=== PATIENT | male | born 1980 | race American Indian/Alaskan Native ===

== ENCOUNTER 2020-12-18 21:50 | Emergency (ER) | payer MEDICAID ==
--- NOTE | 2020-12-18 22:21 | Emergency Department Report ---
ED General Adult HPI - General Chief complaint: Weakness Stated complaint: WEAKNESS/DIZZY/POTASSIUM LOW Time Seen by Provider: 12/18/20 22:14 Source: patient Mode of arrival: Ambulatory Limitations: No Limitations - History of Present Illness Initial comments: Patient presents for generalized weakness and hyperkalemia. There is a history of chronic kidney disease. Patient has a fistula in the left arm. This has not been used yet. His catalyst operator gasoline, Marleen Antoine at [facility], has determined that he will likely need dialysis. He had outpatient labs done today by his primary care physician. They called him about an hour ago and said that the potassium was elevated at 6.1. He was directed to come to the emergency department to get an EKG and medication. Patient does state that there has been some generalized weakness of late. There has been no vomiting or diarrhea. There has been no chest pain or shortness of breath. Patient is not eating tomatoes, bananas, or drinking orange juice. - Related Data Allergies Allergy/AdvReac Type Severity Reaction Status Date / Time Penicillins Allergy Unknown Verified 12/18/20 22:08 ED Review of Systems ROS: Stated complaint: WEAKNESS/DIZZY/POTASSIUM LOW Other details as noted in HPI Comment: All other systems reviewed and negative Constitutional: denies: fever Eyes: denies: vision change ENT: denies: throat pain Respiratory: denies: cough Cardiovascular: denies: chest pain Endocrine: denies: unexplained weight loss Gastrointestinal: denies: abdominal pain Genitourinary: denies: hematuria Musculoskeletal: denies: back pain Skin: denies: rash Neurological: denies: headache Hematological/Lymphatic: denies: easy bruising ED Past Medical Hx - Past Medical History Previous Medical History?: Yes Hx Renal Disease: Yes (Stage IV) Hx HIV: Yes - Surgical History Past Surgical History?: Yes - Family History Family history: no significant ED Physical Exam - General Limitations: No Limitations, Other (Pulse ox was noted to normal. Patient not hypoxic.) General appearance: alert, in no apparent distress - Head Head exam: Present: atraumatic, normocephalic, normal inspection - Eye Eye exam: Present: normal appearance, EOMI. Absent: scleral icterus - ENT ENT exam: Present: normal exam, normal external ear exam - Neck Neck exam: Present: normal inspection. Absent: meningismus - Respiratory Respiratory exam: Present: normal lung sounds bilaterally. Absent: respiratory distress - Cardiovascular Cardiovascular Exam: Present: regular rate, normal rhythm - GI/Abdominal GI/Abdominal exam: Present: soft. Absent: tenderness - Extremities Exam Extremities exam: Present: normal capillary refill. Absent: pedal edema - Back Exam Back exam: Absent: CVA tenderness (R), CVA tenderness (L) - Neurological Exam Neurological exam: Present: alert, oriented X3. Absent: motor sensory deficit - Psychiatric Psychiatric exam: Present: normal affect, normal mood - Skin Skin exam: Present: warm, dry ED Course - Reevaluation(s) Reevaluation #1: 12/18/20 22:21 labs ordered. Reevaluation #2: 12/19/20 00:07 Labs are noted and discussed with the patient. He was subsequently discharged. ED Medical Decision Making - Lab Data Result diagrams: 12/18/20 22:57 - EKG Data -: EKG Interpreted by Me EKG shows normal: sinus rhythm, axis, intervals, QRS complexes, ST-T waves Rate: normal - EKG Data Interpretation: LVH 12/19/20 00:08 EKG shows a normal sinus rhythm at 82. Intervals normal including a QRS of 88 and a QT corrected of 1-68. Patient has no peaked T waves suggestive of hyperkalemia. There is no other ST change. - Medical Decision Making Patient presents with concerns for hyperkalemia. He was told that his potassium was elevated above 6. Upon repeat, his potassium is not elevated above 6. It is 5.1. He is acidotic based on a bicarb of 12. He has been given 2 L of fluid. Whether his renal function is at baseline is difficult to determine as we do not have old labs for comparison. Regardless, he is not hyperkalemic. He is not hypoglycemic. He has been hydrated and referred back to his catalyst operator gasoline for recheck. Critical Care Time: No Critical care attestation.: If time is entered above; I have spent that time in minutes in the direct care of this critically ill patient, excluding procedure time. ED Disposition Clinical Impression: Generalized weakness, CKD (chronic kidney disease) stage 4, GFR 15-29 ml/min, Dehydration Disposition: 01 HOME / SELF CARE / HOMELESS Is pt being admited?: No Condition: Stable Instructions: Food Basics for Chronic Kidney Disease, Dehydration, Adult, [id number], Weakness Additional Instructions: Continue to drink water. Avoid orange juice and bananas. Follow-up with your regular doctor for recheck. Follow-up with your kidney doctor as well. Referrals: PRIMARY CARE, [Referring] - 3-5 Days
[2020-12-18] MEDS ORDERED: SODIUM CHLORIDE 0.9% 1000 ML 1,000 ML IV ONE ×2 (22:22→23:57)
[2020-12-18 23:45] LABS: Calcium 8.5 mg/dL (8.4-10.2)
[2020-12-19 02:36] VITALS: BP 163/75
--- NOTE | 2020-12-22 10:59 | Electrocardiograph Report ---
[facility] Test Date: 2020-12-18 Test Time: 22:34:35 Pat Name: KANWAL ZABALA Department: Room: Gender: M [employer] Supervisor: GUDELIA : 1980 Requested By: TORI HERNANDES Order Number: [id number] Reading MD: Guido Ramirez Measurements Intervals [place] Rate: 82 P: 48 KS: 145 QRS: -2 QRSD: 88 T: 38 QT: 400 QTc: 468 Interpretive Statements Sinus rhythm Nonspecific ST segment abnormality No previous ECG available for comparison Electronically Signed On 12-22-2020 10:59:14 EDT by Guido Ramirez
== END 2020-12-19 04:01 | disposition home or self-care (01) ==
LOC: ED 21:50
DX: N18.4 Chronic kidney disease, stage 4 (severe) (principal); E86.0 Dehydration; R53.1 Weakness; Z21 Asymptomatic human immunodeficiency virus [HIV] infection status; Z98.890 Other specified postprocedural states; Z88.0 Allergy status to penicillin
CPT/HCPCS: 36415; 80048; 93005; 96360; 96361; 99283; J7030

== ENCOUNTER 2021-04-01 20:00 | Inpatient (IN) | payer MEDICAID ==
[2021-04-01] MEDS ORDERED: SODIUM CHLORIDE 0.9% 1000 ML 1,000 ML IV ONE (20:48)
[2021-04-01] MEDS ORDERED: ONDANSETRON 4 MG/2 ML INJ IV ONE (20:48)
[2021-04-01] MEDS ORDERED: DICYCLOMINE 20 MG/2 ML INJ IM ONE (20:48)
--- NOTE | 2021-04-01 21:26 | Cat Scan Report ---
CT ABDOMEN AND PELVIS WITHOUT CONTRAST INDICATION / CLINICAL INFORMATION: diarrhea. abd pain. TECHNIQUE: Axial CT images were obtained through the abdomen and pelvis without IV contrast. All CT scans at this location are performed using CT dose reduction for ALARA by means of automated exposure control. COMPARISON: None available. FINDINGS: LOWER CHEST: No significant abnormality. AORTA / ARTERIES: Mild atherosclerotic calcification without acute abnormality. IVC / VEINS: No significant abnormality. LYMPH NODES: No significant adenopathy. COLON: There is mild fatty infiltration of the wall of the ascending colon and ileocecal valve APPENDIX: Not visualized. STOMACH / SMALL BOWEL: No significant abnormality. PERITONEUM: No free fluid. No free air. No fluid collection. LIVER: No significant abnormality. GALLBLADDER: No significant abnormality. BILE DUCTS: No significant abnormality. PANCREAS: No significant abnormality. SPLEEN: No significant abnormality. ADRENALS: No significant abnormality. RIGHT KIDNEY / URETER: Renal cyst. No hydronephrosis. Mild atrophic appearance of the kidney. LEFT KIDNEY / URETER: Renal cyst. No hydronephrosis. Mildly atrophic appearance kidney. URINARY BLADDER: No significant abnormality. REPRODUCTIVE ORGANS: No significant abnormality. SKELETAL SYSTEM: No significant abnormality. ADDITIONAL FINDINGS: None. IMPRESSION: 1. There is mild fatty infiltration of the colonic wall of the ascending colon and ileocecal valve, c orrelate for possible inflammatory bowel disease. 2. There is mild atherosclerotic disease, as well as atrophic appearance of bilateral kidneys. This a ppears advanced for patient's age. Correlate for diabetes. Signer Name: Sabino Soto DO Signed: 04/01/2021 9:22 PM Workstation Name: [email or web address] [id number]
[2021-04-01 21:36] LABS: Alanine Aminotransferase 8 units/L (7-56); Albumin 3.7 g/dL (3.9-5); Blood Urea Nitrogen 53 mg/dL (9-20); Calcium 8.6 mg/dL (8.4-10.2); Hemolysis Index 3
[2021-04-01 21:37] LABS: BUN/Creatinine Ratio 7
[2021-04-01 21:39] LABS: Bilirubin,Urine NEG (Negative); Blood,Urine NEG (Negative); Color,Urine Yellow (Yellow); Mucus,Urine FEW /HPF; Urobilinogen,Urine < 2.0 mg/dL (<2.0)
[2021-04-01 21:41] LABS: Protein,Urine >500 mg/dL (Negative)
[2021-04-01 21:54] LABS: Basophils # (Auto) 0.1 K/mm3 (0.0-0.1); Eosinophils # (Auto) 0.2 K/mm3 (0.0-0.4); Eosinophils % (Auto) 2.8 % (0.0-4.3); Hematocrit 28.7 % (35.5-45.6); Hemoglobin 9.1 gm/dl (11.8-15.2); Lymphocytes # (Auto) 2.6 K/mm3 (1.2-5.4); Lymphocytes % (Auto) 31.5 % (13.4-35.0); Mean Corpuscular HGB Conc 32 % (32-34); Mean Corpuscular Volume 94 fl (84-94); Monocytes # (Auto) 1.2 K/mm3 (0.0-0.8); Monocytes % (Auto) 14.7 % (0.0-7.3); Platelet Count 373 K/mm3 (140-440); Red Blood Count 3.05 M/mm3 (3.65-5.03); Red Cell Distribution Width 15.4 % (13.2-15.2)
[2021-04-01] MEDS ORDERED: SODIUM BICARB 8.4% 50 MEQ/50 ML SYRINGE IV ONE (22:05)
[2021-04-01] MEDS ORDERED: metroNIDAZOLE/NS 500 MG/100 ML 500 MG/100 ML BAG IV ONE (22:05)
[2021-04-01] MEDS ORDERED: SODIUM POLYSTYRENE 15 GM/60 ML ORAL LIQD PO ONE (22:05)
[2021-04-01] MEDS ORDERED: INSULIN REGULAR, HUMAN 100 UNITS/1 ML IV ONE (22:05)
[2021-04-01] MEDS ORDERED: DEXTROSE 50% IN WATER (25GM) 50 ML SYRINGE IV ONE (22:05)
--- NOTE | 2021-04-01 23:11 | Emergency Department Report ---
ED Abdominal Pain HPI - General Chief Complaint: Abdominal Pain Stated Complaint: ABD PAIN Time Seen by Provider: 04/01/21 20:42 Source: patient Mode of arrival: Ambulatory Limitations: No Limitations - History of Present Illness Initial Comments: Patient is a 40-year-old male with a past medical history of HIV and stage IV kidney disease who is being followed by a direct care provider at [facility] who is presenting with abdominal pain and diarrhea. Patient states for the last week he has had crampy abdominal pain and loose stools. Denies any blood in his stools. Also has some nausea denies fevers cough cold congestion. Patient states he feels fatigued. Abdominal cramps are estimated at 5 out of 10 in severity and occur intermittently. - Related Data Allergies Allergy/AdvReac Type Severity Reaction Status Date / Time Penicillins Allergy Unknown Verified 04/01/21 20:05 ED Review of Systems ROS: Stated complaint: ABD PAIN Other details as noted in HPI Comment: All other systems reviewed and negative ED Past Medical Hx - Past Medical History Hx Renal Disease: Yes (Stage IV) Hx HIV: Yes - Social History Smoking Status: Never Smoker Substance Use Type: None ED Physical Exam - General Limitations: No Limitations General appearance: alert, in distress - Head Head exam: Present: atraumatic, normocephalic - Eye Eye exam: Present: normal appearance - ENT ENT exam: Present: mucous membranes moist - Neck Neck exam: Present: normal inspection - Respiratory Respiratory exam: Present: normal lung sounds bilaterally. Absent: respiratory distress, wheezes, rales, rhonchi - Cardiovascular Cardiovascular Exam: Present: regular rate, normal rhythm, normal heart sounds. Absent: systolic murmur, diastolic murmur, rubs, gallop - GI/Abdominal GI/Abdominal exam: Present: soft, tenderness, normal bowel sounds. Absent: distended, guarding, rebound, rigid - Rectal Rectal exam: Present: deferred - Extremities Exam Extremities exam: Present: normal inspection - Back Exam Back exam: Present: normal inspection - Neurological Exam Neurological exam: Present: alert, oriented X3 - Psychiatric Psychiatric exam: Present: normal affect, normal mood - Skin Skin exam: Present: warm, dry, intact, normal color. Absent: rash ED Course Vital Signs 04/01/21 20:03 Temperature 98.5 F Pulse Rate 88 Respiratory 20 Rate Blood Pressure 119/60 O2 Sat by Pulse 99 Oximetry ED Medical Decision Making - Lab Data Result diagrams: 04/01/21 20:50 04/01/21 20:50 Lab Results 04/01/21 04/01/21 04/01/21 Range/Units 20:50 20:50 Unknown WBC 8.3 (4.5-11.0) K/mm3 RBC 3.05 L (3.65-5.03) M/mm3 Hgb 9.1 L (11.8-15.2) gm/dl Hct 28.7 L (35.5-45.6) % MCV 94 (84-94) fl MCH 30 (28-32) pg MCHC 32 (32-34) % RDW 15.4 H (13.2-15.2) % Plt Count 373 (140-440) K/mm3 Lymph % (Auto) 31.5 (13.4-35.0) % [place] % (Auto) 14.7 H (0.0-7.3) % Eos % (Auto) 2.8 (0.0-4.3) % Baso % (Auto) Records Tech Lymph # (Auto) 2.6 (1.2-5.4) K/mm3 [place] # (Auto) 1.2 H (0.0-0.8) K/mm3 Eos # (Auto) 0.2 (0.0-0.4) K/mm3 Baso # (Auto) 0.1 (0.0-0.1) K/mm3 Seg Neutrophils % 49.6 (40.0-70.0) % Seg Neutrophils # 4.1 (1.8-7.7) K/mm3 Sodium 136 L (137-145) mmol/L Potassium 6.8 H* (3.6-5.0) mmol/L Chloride 107.8 H (98-107) mmol/L Carbon Dioxide 14 L (22-30) mmol/L Anion Gap 21 mmol/L BUN 53 H (9-20) mg/dL Creatinine 7.2 H (0.8-1.3) mg/dL Estimated GFR 10 ml/min BUN/Creatinine Ratio 7 % Glucose 107 H (75-100) mg/dL Calcium 8.6 (8.4-10.2) mg/dL Total Bilirubin < 0.20 (0.1-1.2) mg/dL AST 14 (5-40) units/L ALT 8 (7-56) units/L Alkaline Phosphatase 89 (35-129) units/L Total Protein 7.6 (6.3-8.2) g/dL Albumin 3.7 L (3.9-5) g/dL Albumin/Globulin Ratio 0.9 % Lipase 67 H (13-60) units/L Urine Color Yellow (Yellow) Urine Turbidity Slightly-cloudy (Clear) Urine pH 5.0 (5.0-7.0) Ur Specific [place] 1.010 (1.003-1.030) Urine Protein >500 (Negative) mg/dL Urine Glucose (UA) Neg (Negative) mg/dL Urine Ketones Neg (Negative) mg/dL Urine Blood Neg (Negative) Urine Nitrite Neg (Negative) Urine Bilirubin Neg (Negative) Urine Urobilinogen < 2.0 (<2.0) mg/dL Ur Leukocyte Esterase Neg (Negative) Urine WBC (Auto) 7.0 H (0.0-6.0) /HPF Urine RBC (Auto) 1.0 (0.0-6.0) /HPF U Epithel Cells (Auto) 1.0 (0-13.0) /HPF Urine Mucus Few /HPF - Radiology Data Ordering Physician: PAOLA VARGAS MD Date of Service: 04/01/21 Procedure(s): CT abdomen pelvis wo [facility] Accession Number(s): [id number] cc: PAOLA VARGAS MD CT ABDOMEN AND PELVIS WITHOUT CONTRAST INDICATION / CLINICAL INFORMATION: diarrhea. abd pain. TECHNIQUE: Axial CT images were obtained through the abdomen and pelvis without IV contrast. All CT scans at this location are performed using CT dose reduction for ALARA by means of automated exposure control. COMPARISON: None available. FINDINGS: LOWER CHEST: No significant abnormality. AORTA / ARTERIES: Mild atherosclerotic calcification without acute abnormality. IVC / VEINS: No significant abnormality. LYMPH NODES: No significant adenopathy. COLON: There is mild fatty infiltration of the wall of the ascending colon and ileocecal valve APPENDIX: Not visualized. STOMACH / SMALL BOWEL: No significant abnormality. PERITONEUM: No free fluid. No free air. No fluid collection. LIVER: No significant abnormality. GALLBLADDER: No significant abnormality. BILE DUCTS: No significant abnormality. PANCREAS: No significant abnormality. SPLEEN: No significant abnormality. ADRENALS: No significant abnormality. RIGHT KIDNEY / URETER: Renal cyst. No hydronephrosis. Mild atrophic appearance of the kidney. LEFT KIDNEY / URETER: Renal cyst. No hydronephrosis. Mildly atrophic appearance kidney. URINARY BLADDER: No significant abnormality. REPRODUCTIVE ORGANS: No significant abnormality. SKELETAL SYSTEM: No significant abnormality. ADDITIONAL FINDINGS: None. IMPRESSION: 1. There is mild fatty infiltration of the colonic wall of the ascending colon and ileocecal valve, correlate for possible inflammatory bowel disease. 2. There is mild atherosclerotic disease, as well as atrophic appearance of bilateral kidneys. This appears advanced for patient's age. Correlate for diabetes. Signer Name: Sabino Priya Soto DO Signed: 04/01/2021 9:22 PM Workstation Name: [id number] - Medical Decision Making Patient is a 40-year-old Armenian male who is presenting with abdominal cramps and diarrhea. CT is consistent with colitis he was started on Flagyl Levaquin given some Bentyl fluids. Patient likely has had some worsening of his renal function secondary to some dehydration from the diarrhea and his potassium is elevated. Patient given a cocktail to get his potassium to come down. Patient will be admitted to the hospitalist service. Nephrology has been consulted. Critical Care Time: Yes (30) Critical care attestation.: If time is entered above; I have spent that time in minutes in the direct care of this critically ill patient, excluding procedure time. ED Disposition Clinical Impression: Acute kidney injury, Dehydration, Colitis Disposition: ADMITTED INPATIENT Is pt being admited?: Yes Does the pt Need Aspirin: No Condition: Stable Time of Disposition: 23:12
[2021-04-02] MEDS ORDERED: INSULIN REGULAR, HUMAN 100 UNITS/1 ML IV ONE (00:30)
[2021-04-02] MEDS ORDERED: metroNIDAZOLE/NS 500 MG/100 ML 500 MG/100 ML BAG IV ONE (00:30)
[2021-04-02] MEDS ORDERED: DICYCLOMINE 20 MG/2 ML INJ IM ONE (00:30)
[2021-04-02] MEDS ORDERED: SODIUM BICARB 8.4% 50 MEQ/50 ML SYRINGE IV ONE ×3 (00:30→20:20)
[2021-04-02] MEDS ORDERED: SODIUM POLYSTYRENE 15 GM/60 ML ORAL LIQD PO ONE ×2 (00:30→18:30)
[2021-04-02] MEDS ORDERED: SODIUM CHLORIDE 0.9% 1000 ML 1,000 ML ONE (00:57)
[2021-04-02] MEDS ORDERED: ONDANSETRON 4 MG/2 ML INJ ONE (00:57)
[2021-04-02] MEDS ORDERED: ALBUTEROL 2.5 MG/3 ML NEBU IH PRN (01:14)
[2021-04-02] MEDS ORDERED: ONDANSETRON 4 MG/2 ML INJ IV PRN (01:14)
[2021-04-02] MEDS ORDERED: HYDROmorphone 1 MG/1 ML INJ IV PRN (01:14)
[2021-04-02] MEDS ORDERED: ACETAMINOPHEN 325 MG TAB PO PRN (01:14)
[2021-04-02] MEDS ORDERED: MORPHINE 2 MG/1 ML INJ IV PRN (01:14)
[2021-04-02] MEDS ORDERED: CALCIUM GLUCONATE 1,000 MG in SODIUM CHLORIDE 0.9% 100 ML IV ONE (01:17)
--- NOTE | 2021-04-02 01:23 | History and Physical Report ---
History of Present Illness Date of examination: 04/02/21 Date of admission: 04/02/21 Chief complaint: Abdominal pain History of present illness: 40-year-old male with a past medical history of HIV and stage IV kidney disease who is being followed by a biscuit maker at [facility] who is presenting with abdominal pain and diarrhea. Patient states for the last week he has had crampy abdominal pain and loose stools. Denies any blood in his stools. Also has some nausea denies fevers cough cold congestion. Patient states he feels fatigued. Abdominal cramps are estimated at 5 out of 10 in severity and occur intermittently. In the emergency room patient is found to have potassium of 6.8, BUN of fifty- three and creatinine of 7.2, bicarb of fourteen. CT is consistent with colitis. pt was started on metronidazole , Levaquin. Patient was given some Bentyl and IV fluids. Patient likely has had some worsening of his renal function secondary to some dehydration from the diarrhea and his potassium is elevated. Patient was given insulin 7 units IV x1 dose D50, calcium gluconate 1 g. Kayexalate and sodium bicarb to get his potassium to come down. Patient will be admitted to the hospitalist service. Nephrology has been consulted. Past History Past Medical History: HIV/AIDS, renal failure Medications and Allergies Allergies Allergy/AdvReac Type Severity Reaction Status Date / Time Penicillins Allergy Unknown Verified 04/01/21 20:05 Active Meds: Active Medications Levofloxacin/Dextrose (Levaquin 500mg/100ml) 500 mg in 100 mls @ 100 mls/hr IV ONCE ONE; Protocol Stop: 04/02/21 01:29 Review of Systems All systems: negative Gastrointestinal: abdominal pain, nausea, vomiting, diarrhea Exam - Constitutional Vitals: Temp Pulse Resp BP Pulse Ox 98.5 F 88 20 119/60 99 04/01/21 20:03 04/01/21 20:03 04/01/21 20:03 04/01/21 20:03 04/01/21 20:03 General appearance: Present: no acute distress, well-nourished - EENT Eyes: Present: PERRL ENT: hearing intact, clear oral mucosa - Neck Neck: Present: supple, normal ROM - Respiratory Respiratory effort: normal Respiratory: bilateral: CTA - Cardiovascular Heart Sounds: Present: S1 & S2. Absent: rub, click - Extremities Extremities: pulses symmetrical, No edema Peripheral Pulses: within normal limits - Abdominal General gastrointestinal: Present: soft, non-tender, non-distended, normal bowel sounds Male genitourinary: Present: normal - Integumentary Integumentary: Present: clear, warm, dry - Musculoskeletal Musculoskeletal: gait normal, strength equal bilaterally - Psychiatric Psychiatric: appropriate mood/affect, intact judgment & insight - Neurologic Neurologic: CNII-XII intact, moves all extremities Results - Labs CBC & Chem 7: 04/01/21 20:50 04/01/21 20:50 Labs: Laboratory Last Values WBC 8.3 K/mm3 (4.5-11.0) 04/01/21 20:50 RBC 3.05 M/mm3 (3.65-5.03) L 04/01/21 20:50 Hgb 9.1 gm/dl (11.8-15.2) L 04/01/21 20:50 Hct 28.7 % (35.5-45.6) L 04/01/21 20:50 MCV 94 fl (84-94) 04/01/21 20:50 MCH 30 pg (28-32) 04/01/21 20:50 MCHC 32 % (32-34) 04/01/21 20:50 RDW 15.4 % (13.2-15.2) H 04/01/21 20:50 Plt Count 373 K/mm3 (140-440) 04/01/21 20:50 Lymph % (Auto) 31.5 % (13.4-35.0) 04/01/21 20:50 [place] % (Auto) 14.7 % (0.0-7.3) H 04/01/21 20:50 Eos % (Auto) 2.8 % (0.0-4.3) 04/01/21 20:50 Baso % (Auto) Mobile Lounge Driver 04/01/21 20:50 Lymph # (Auto) 2.6 K/mm3 (1.2-5.4) 04/01/21 20:50 [place] # (Auto) 1.2 K/mm3 (0.0-0.8) H 04/01/21 20:50 Eos # (Auto) 0.2 K/mm3 (0.0-0.4) 04/01/21 20:50 Baso # (Auto) 0.1 K/mm3 (0.0-0.1) 04/01/21 20:50 Seg Neutrophils % 49.6 % (40.0-70.0) 04/01/21 20:50 Seg Neutrophils # 4.1 K/mm3 (1.8-7.7) 04/01/21 20:50 Sodium 136 mmol/L (137-145) L 04/01/21 20:50 Potassium 6.8 mmol/L (3.6-5.0) H* 04/01/21 20:50 Chloride 107.8 mmol/L (98-107) H 04/01/21 20:50 Carbon Dioxide 14 mmol/L (22-30) L 04/01/21 20:50 Anion Gap 21 mmol/L 04/01/21 20:50 BUN 53 mg/dL (9-20) H 04/01/21 20:50 Creatinine 7.2 mg/dL (0.8-1.3) H 04/01/21 20:50 Estimated GFR 10 ml/min 04/01/21 20:50 BUN/Creatinine Ratio 7 % 04/01/21 20:50 Glucose 107 mg/dL (75-100) H 04/01/21 20:50 Calcium 8.6 mg/dL (8.4-10.2) 04/01/21 20:50 Total Bilirubin < 0.20 mg/dL (0.1-1.2) 04/01/21 20:50 AST 14 units/L (5-40) 04/01/21 20:50 ALT 8 units/L (7-56) 04/01/21 20:50 Alkaline Phosphatase 89 units/L (35-129) 04/01/21 20:50 Total Protein 7.6 g/dL (6.3-8.2) 04/01/21 20:50 Albumin 3.7 g/dL (3.9-5) L 04/01/21 20:50 Albumin/Globulin Ratio 0.9 % 04/01/21 20:50 Lipase 67 units/L (13-60) H 04/01/21 20:50 Urine Color Yellow (Yellow) 04/01/21 Unknown Urine Turbidity Slightly-cloudy (Clear) 04/01/21 Unknown Urine pH 5.0 (5.0-7.0) 04/01/21 Unknown Ur Specific [place] 1.010 (1.003-1.030) 04/01/21 Unknown Urine Protein >500 mg/dL (Negative) 04/01/21 Unknown Urine Glucose (UA) Neg mg/dL (Negative) 04/01/21 Unknown Urine Ketones Neg mg/dL (Negative) 04/01/21 Unknown Urine Blood Neg (Negative) 04/01/21 Unknown Urine Nitrite Neg (Negative) 04/01/21 Unknown Urine Bilirubin Neg (Negative) 04/01/21 Unknown Urine Urobilinogen < 2.0 mg/dL (<2.0) 04/01/21 Unknown Ur Leukocyte Esterase Neg (Negative) 04/01/21 Unknown Urine WBC (Auto) 7.0 /HPF (0.0-6.0) H 04/01/21 Unknown Urine RBC (Auto) 1.0 /HPF (0.0-6.0) 04/01/21 Unknown U Epithel Cells (Auto) 1.0 /HPF (0-13.0) 04/01/21 Unknown Urine Mucus Few /HPF 04/01/21 Unknown - Imaging and Cardiology CT scan - abdomen: report reviewed Assessment and Plan VTE prophylaxis?: Chemical Plan of care discussed with patient/family: Yes - Patient Problems (1) Acute kidney injury superimposed on chronic kidney disease Current Visit: Yes Status: Acute Plan to address problem: Admit the patient to the IMCU. N.p.o. IV fluid D5 half-normal saline at the rate of 125 cc/h. Avoid nephrotoxic drugs. Renally dose medication. Reconsult nephrology for evaluation. Recheck BMP in the morning (2) Hyperkalemia Current Visit: Yes Status: Acute Plan to address problem: Half-normal saline at the rate of 125 cc/h. Patient get insulin 7 units IV x1 dose, D50 1 ampoule IV x1 dose. Calcium gluconate 1 g IV x1 dose. Sodium bicarb 50 mEq IV x1 dose Kayexalate 30 g p.o. every 4 hours x2 doses. Reconsult nephrology for evaluation. Recheck BMP in the morning (3) HIV (human immunodeficiency virus infection) Current Visit: Yes Status: Acute Plan to address problem: Stable. We continue the home HIV medication outpatient follow-up with infectious disease (4) Colitis Current Visit: Yes Status: Acute Plan to address problem: NPO. D5 half-normal saline at the rate of 125 cc/h. Levaquin 750 mg IV daily. Metronidazole 500 mg IV every 8 hours. If needed will consult GI. Recheck CBC BMP in the morning (5) Dehydration Current Visit: Yes Status: Acute Plan to address problem: D5 half-normal saline at the rate of 125 cc/h. We will rehydrate the patient slowly. Recheck BMP in the morning (6) DVT prophylaxis Current Visit: Yes Status: Acute Plan to address problem: Heparin 5000 units subcu every 8 hours for DVT prophylaxis. Pepcid 20 mg IV every 12 hours for GI prophylaxis. Patient is a full code
[2021-04-02] MEDS ORDERED: SODIUM CHLORIDE 0.45% 1000 ML 1,000 ML IV SCH (02:00)
[2021-04-02] MEDS ORDERED: D5W/0.45% NACL 1,000 ML IV SCH (02:00)
[2021-04-02] MEDS: SODIUM POLYSTYRENE 15 GM/60 ML ORAL LIQD PO SCH ×2 (07:45→20:54)
[2021-04-02] MEDS ORDERED: metroNIDAZOLE/NS 500 MG/100 ML 500 MG/100 ML BAG IV SCH (09:00)
--- NOTE | 2021-04-02 09:23 | Progress Note ---
Assessment and Plan Assessment and plan: HPI: 40-year-old male with a past medical history of HIV and stage IV kidney disease who is being followed by a cost accounting analyst at [facility] who is presenting with abdominal pain and diarrhea. Patient states for the last week he has had crampy abdominal pain and loose stools. Denies any blood in his stools. Also has some nausea denies fevers cough cold congestion. Patient states he feels fatigued. Abdominal cramps are estimated at 5 out of 10 in severity and occur intermittently. Hospital Course 04/02/2021: ID consulted due to suspicion for opportunistic infection driving colitis vs HIV colitis. HAART therapy resumed. Stool cultures ordered by ID> No leukocytosis, fever. Abx d/c. If diarrhea does not resolve and infectious work up is negative, will consider GI consult. Awaiting labs (specifically K) which were ordered for 4 AM. ED RN was notified. Will follow for result. Assessment and Plan #ROMMEL superimposed on CKD - Cr: 7.2 on admission - follows with [facility] - IVF - nephrology consulted. #Hyperkalemia -6.8 -Status post calcium gluconate, sodium bicarb, insulin, Kayexalate - follow repeat K. #Colitis - will start clear liquid diet and advance as tolerated - possibly viral but wbc negative, no fevers. Has been ongoing for several weeks ( may need OP c-scope to look for inflammatory etiology). - c diff, stool studies ordered by ID - Zofran prn - dc flagyl/levaquin - ID following - may consider GI consult if no resolution #Human immunodeficiency virus infection - follow with [facility] dept. - CD4 count reported to be in 1100's. - Is complaint on HAART therapy:Norvir, Prezista, rilpivirine #History of CKD stage IV - baseline? - nephro following #Dehydration -IVF Dispo: IMCU DVT prophylaxis Heparin 5000 units every 8 hours NPO Full code The high probability of a clinically significant, sudden or life threatening deterioration of the [renal, GI] system(s) required my full and direct attention, intervention and personal management. The aggregate critical care time was [60] minutes. This time is in addition to time spent performing reported procedures but includes the following: [x] Data Review and interpretation [x] Patient assessment and monitoring of vital signs [x] Documentation [x] Medication orders and management Hospitalist Physical - Physical exam Narrative exam: Physical Exam: VITAL SIGNS: Reviewed. GENERAL: The patient appears normally developed, Vital signs as documented. HEAD: No signs of head trauma. EYES: Pupils are equal. Extraocular motions intact. EARS: Hearing grossly intact. MOUTH: Oropharynx is normal. NECK: No adenopathy, no JVD. CHEST: Chest with clear breath sounds bilaterally. No wheezes, rales, or rhonchi. CARDIAC: Regular rate and rhythm. S1 and S2, without murmurs, gallops, or rubs. VASCULAR: No Edema. Peripheral pulses normal and equal in all extremities. ABDOMEN: Soft, non tender and non distended. No rebound or guarding, and no masses palpated. Bowel Sounds normal. MUSCULOSKELETAL: Good range of motion of all major joints. Extremities without clubbing, cyanosis or edema. NEUROLOGIC EXAM: Alert and oriented x 4. no focal sensory or strength deficits. PSYCHIATRIC: Mood normal. SKIN: detail exam as documented in skin assessment - Constitutional Vitals: Temp Pulse Resp BP Pulse Ox 98.5 F 79 17 142/80 100 04/01/21 20:03 04/02/21 06:46 04/02/21 06:46 04/02/21 06:46 04/02/21 06:46 General appearance: Present: no acute distress, well-nourished Results - Labs CBC & Chem 7: 04/01/21 20:50 04/01/21 20:50 Labs: Laboratory Last Values WBC 8.3 K/mm3 (4.5-11.0) 04/01/21 20:50 RBC 3.05 M/mm3 (3.65-5.03) L 04/01/21 20:50 Hgb 9.1 gm/dl (11.8-15.2) L 04/01/21 20:50 Hct 28.7 % (35.5-45.6) L 04/01/21 20:50 MCV 94 fl (84-94) 04/01/21 20:50 MCH 30 pg (28-32) 04/01/21 20:50 MCHC 32 % (32-34) 04/01/21 20:50 RDW 15.4 % (13.2-15.2) H 04/01/21 20:50 Plt Count 373 K/mm3 (140-440) 04/01/21 20:50 Lymph % (Auto) 31.5 % (13.4-35.0) 04/01/21 20:50 [place] % (Auto) 14.7 % (0.0-7.3) H 04/01/21 20:50 Eos % (Auto) 2.8 % (0.0-4.3) 04/01/21 20:50 Baso % (Auto) [employer] 04/01/21 20:50 Lymph # (Auto) 2.6 K/mm3 (1.2-5.4) 04/01/21 20:50 [place] # (Auto) 1.2 K/mm3 (0.0-0.8) H 04/01/21 20:50 Eos # (Auto) 0.2 K/mm3 (0.0-0.4) 04/01/21 20:50 Baso # (Auto) 0.1 K/mm3 (0.0-0.1) 04/01/21 20:50 Seg Neutrophils % 49.6 % (40.0-70.0) 04/01/21 20:50 Seg Neutrophils # 4.1 K/mm3 (1.8-7.7) 04/01/21 20:50 Sodium 136 mmol/L (137-145) L 04/01/21 20:50 Potassium 6.8 mmol/L (3.6-5.0) H* 04/01/21 20:50 Chloride 107.8 mmol/L (98-107) H 04/01/21 20:50 Carbon Dioxide 14 mmol/L (22-30) L 04/01/21 20:50 Anion Gap 21 mmol/L 04/01/21 20:50 BUN 53 mg/dL (9-20) H 04/01/21 20:50 Creatinine 7.2 mg/dL (0.8-1.3) H 04/01/21 20:50 Estimated GFR 10 ml/min 04/01/21 20:50 BUN/Creatinine Ratio 7 % 04/01/21 20:50 Glucose 107 mg/dL (75-100) H 04/01/21 20:50 Calcium 8.6 mg/dL (8.4-10.2) 04/01/21 20:50 Total Bilirubin < 0.20 mg/dL (0.1-1.2) 04/01/21 20:50 AST 14 units/L (5-40) 04/01/21 20:50 ALT 8 units/L (7-56) 04/01/21 20:50 Alkaline Phosphatase 89 units/L (35-129) 04/01/21 20:50 Total Protein 7.6 g/dL (6.3-8.2) 04/01/21 20:50 Albumin 3.7 g/dL (3.9-5) L 04/01/21 20:50 Albumin/Globulin Ratio 0.9 % 04/01/21 20:50 Lipase 67 units/L (13-60) H 04/01/21 20:50 Urine Color Yellow (Yellow) 04/01/21 Unknown Urine Turbidity Slightly-cloudy (Clear) 04/01/21 Unknown Urine pH 5.0 (5.0-7.0) 04/01/21 Unknown Ur Specific [place] 1.010 (1.003-1.030) 04/01/21 Unknown Urine Protein >500 mg/dL (Negative) 04/01/21 Unknown Urine Glucose (UA) Neg mg/dL (Negative) 04/01/21 Unknown Urine Ketones Neg mg/dL (Negative) 04/01/21 Unknown Urine Blood Neg (Negative) 04/01/21 Unknown Urine Nitrite Neg (Negative) 04/01/21 Unknown Urine Bilirubin Neg (Negative) 04/01/21 Unknown Urine Urobilinogen < 2.0 mg/dL (<2.0) 04/01/21 Unknown Ur Leukocyte Esterase Neg (Negative) 04/01/21 Unknown Urine WBC (Auto) 7.0 /HPF (0.0-6.0) H 04/01/21 Unknown Urine RBC (Auto) 1.0 /HPF (0.0-6.0) 04/01/21 Unknown U Epithel Cells (Auto) 1.0 /HPF (0-13.0) 04/01/21 Unknown Urine Mucus Few /HPF 04/01/21 Unknown Active Medications - Current Medications Current Medications: Generic Name Dose Route Start Last Admin Trade Name Freq PRN Reason Stop Dose Admin Acetaminophen 650 mg 04/02/21 01:14 Acetaminophen 325 Mg Tab PO Q4H PRN Pain MILD(1-3)/Fever >100.5/ZELAYA Albuterol 2.5 mg 04/02/21 01:14 Albuterol 2.5 Mg/3 Ml Nebu IH Q4HRT PRN Shortness Of Breath Albuterol/Ipratropium 1 ampul 04/02/21 02:00 Ipratropium/Albuterol Sulfate 3 Ml Ampul.Neb IH Q6HRT MOODY Famotidine 20 mg 04/02/21 10:00 Famotidine 20 Mg/2 Ml Inj IV DAILY [facility] Heparin Sodium (Porcine) 5,000 unit 04/02/21 06:00 Heparin 5,000 Unit/1 Ml Vial SUB-Q Q8HR [facility] Hydromorphone HCl 0.5 mg 04/02/21 01:14 Hydromorphone 1 Mg/1 Ml Inj IV Q3H PRN Pain , Severe (7-10) Metronidazole 500 mg in 100 mls @ 100 mls/hr 04/02/21 09:00 Flagyl 500 Mg/100 Ml IV Q8H [facility] Protocol Dextrose/Sodium Chloride 1,000 mls @ 125 mls/hr 04/02/21 02:00 D5/0.45ns IV DIRECT [facility] Levofloxacin/Dextrose 250 mg in 50 mls @ 50 mls/hr 04/03/21 01:00 Levaquin 250mg/50ml IV Q48H [facility] Protocol Morphine Sulfate 2 mg 04/02/21 01:14 Morphine 2 Mg/1 Ml Inj IV Q4H PRN Pain, Moderate (4-6) Ondansetron HCl 4 mg 04/02/21 01:14 Ondansetron 4 Mg/2 Ml Inj IV Q8H PRN Nausea And Vomiting Sodium Chloride 10 ml 04/02/21 10:00 Sodium Chloride 0.9% 10 Ml Flush Syringe IV BID MOODY Sodium Chloride 10 ml 04/02/21 01:14 Sodium Chloride 0.9% 10 Ml Flush Syringe IV PRN PRN LINE FLUSH
[2021-04-02] MEDS ORDERED: FAMOTIDINE 20 MG/2 ML INJ IV SCH (10:00)
[2021-04-02] MEDS: HEPARIN 5,000 UNIT/1 ML VIAL SUB-Q SCH ×2 (10:24→18:26)
[2021-04-02] MEDS: FAMOTIDINE 20 MG/2 ML INJ IV SCH (10:24)
--- NOTE | 2021-04-02 13:35 | Consultation ---
History of Present Illness - Reason for Consult Consult date: 04/02/21 HIV, colitis Requesting physician: CARLYN ACOSTA - History of Present Illness The patient is a 40-year-old male with HIV, CKD stage IV was admitted to the hospital with a 10-day history of lower abdominal pain and some loose stools. CT abdomen and pelvis showed evidence of possible colitis. Infectious diseases was consulted for additional evaluation. Patient denies any fever. Labs with normal WBC of 8.3. Potassium 6.8, creatinine 7.2. Denies any recent antibiotic exposure. With regards to his HIV, he follows up at [facility], undetectable viral load and CD4 count is around 1100, ART includes Norvir, Prezista, rilpivirine. He used to be on Complera which was later discontinued due to his worsening renal function. Review of Systems: General: no fevers,chills or rigors HEENT: no new visual disturbance Respiratory: No cough, sputum, hemoptysis or shortness of breath Cardiovascular: No chest pain, syncope Gastrointestinal: Abdominal pain with few loose stools Genitourinary: No dysuria or hematuria Musculoskeletal: No new or worsening neck pain or back pain Neurologic: No headaches, seizures Hematologic: No easy bruising or bleeding Endocrine: No night sweats or acute weight loss Skin: negative for rash, jaundice Psychiatric: No suicidal or homicidal ideation Past History Past Medical History: HIV/AIDS, renal failure Social history: single Family history: hypertension Medications and Allergies Allergies Allergy/AdvReac Type Severity Reaction Status Date / Time Penicillins Allergy Unknown Verified 04/01/21 20:05 Active Meds: Active Medications Acetaminophen (Acetaminophen 325 Mg Tab) 650 mg PO Q4H PRN PRN Reason: Pain MILD(1-3)/Fever >100.5/ZELAYA Albuterol (Albuterol 2.5 Mg/3 Ml Nebu) 2.5 mg IH Q4HRT PRN PRN Reason: Shortness Of Breath Albuterol/Ipratropium (Ipratropium/Albuterol Sulfate 3 Ml Ampul.Neb) 1 ampul IH Q6HRT [facility] Famotidine (Famotidine 20 Mg/2 Ml Inj) 20 mg IV DAILY [facility] Last Admin: 04/02/21 10:24 Dose: 20 mg Heparin Sodium (Porcine) (Heparin 5,000 Unit/1 Ml Vial) 5,000 unit SUB-Q Q8HR [facility] Last Admin: 04/02/21 10:24 Dose: 5,000 unit Hydromorphone HCl (Hydromorphone 1 Mg/1 Ml Inj) 0.5 mg IV Q3H PRN PRN Reason: Pain , Severe (7-10) Metronidazole (Flagyl 500 Mg/100 Ml) 500 mg in 100 mls @ 100 mls/hr IV Q8H [facility]; Protocol Last Admin: 04/02/21 10:23 Dose: 100 mls/hr Dextrose/Sodium Chloride (D5/0.45ns) 1,000 mls @ 125 mls/hr IV DIRECT [facility] Levofloxacin/Dextrose (Levaquin 250mg/50ml) 250 mg in 50 mls @ 50 mls/hr IV Q48H [facility]; Protocol Morphine Sulfate (Morphine 2 Mg/1 Ml Inj) 2 mg IV Q4H PRN PRN Reason: Pain, Moderate (4-6) Ondansetron HCl (Ondansetron 4 Mg/2 Ml Inj) 4 mg IV Q8H PRN PRN Reason: Nausea And Vomiting Sodium Chloride (Sodium Chloride 0.9% 10 Ml Flush Syringe) 10 ml IV BID [facility] Last Admin: 04/02/21 10:24 Dose: 10 ml Sodium Chloride (Sodium Chloride 0.9% 10 Ml Flush Syringe) 10 ml IV PRN PRN PRN Reason: LINE FLUSH Physical Examination - Physical Exam Narrative exam: Physical Exam: Constitutional: Alert, cooperative. No acute distress Head, Ears, Nose: Normocephalic, atraumatic. External ears, nose normal Eyes: Conjunctivae/corneas clear. No icterus. No ptosis. Neck: Supple, no meningeal signs Oral: dentition fair, no thrush Cardiovascular: S1, S2 + Respiratory: Good air entry, clear to auscultation bilaterally GI: Soft, non-tender; bowel sounds normal. No peritoneal signs Musculoskeletal: No pedal edema, no cyanosis. Skin: No rash or abscess Hem/Lymphatic: No palpable cervical or supraclavicular nodes. No lymphangitis Psych: Mood ok. Affect normal Neurological: Awake, alert, oriented. No gross abnormality - Constitutional Vitals: Vital Signs Temp Pulse Resp BP Pulse Ox 98.5 F 79 17 142/80 100 04/01/21 20:03 04/02/21 06:46 04/02/21 06:46 04/02/21 06:46 04/02/21 06:46 Temperature -Last 24 Hours Temperature 98.5 F Results - Labs CBC & Chem 7: 04/01/21 20:50 04/01/21 20:50 Labs: Abnormal lab results 04/01/21 04/01/21 04/01/21 Range/Units 20:50 20:50 Unknown RBC 3.05 L (3.65-5.03) M/mm3 Hgb 9.1 L (11.8-15.2) gm/dl Hct 28.7 L (35.5-45.6) % RDW 15.4 H (13.2-15.2) % [place] % (Auto) 14.7 H (0.0-7.3) % [place] # (Auto) 1.2 H (0.0-0.8) K/mm3 Sodium 136 L (137-145) mmol/L Potassium 6.8 H* (3.6-5.0) mmol/L Chloride 107.8 H (98-107) mmol/L Carbon Dioxide 14 L (22-30) mmol/L BUN 53 H (9-20) mg/dL Creatinine 7.2 H (0.8-1.3) mg/dL Glucose 107 H (75-100) mg/dL Albumin 3.7 L (3.9-5) g/dL Lipase 67 H (13-60) units/L Urine WBC (Auto) 7.0 H (0.0-6.0) /HPF - Imaging and Cardiology CT scan - abdomen: report reviewed Assessment and Plan Cultures: None this admission A/P: 40-year-old male with HIV, CKD stage IV was admitted to the hospital with a 10- day history of lower abdominal pain and some loose stools. CT abdomen and pelvis showed evidence of possible colitis: #Abdominal pain, loose stools, possible colitis: No fever, no leukocytosis. Given his normal CD4 count, very low suspicion for opportunistic infection. C.difficile less likely, no recent abx exposure, normal WBC. #HIV: follows up at [facility], undetectable viral load and CD4 count is around 1100, ART includes Norvir, Prezista, rilpivirine. He used to be on Complera which was later discontinued due to his worsening renal function. #ROMMEL on CKD stage IV: Nephrology on board. Also hyperkalemia Recs: -ART regimen ordered: Prezista, Norvir, rilpivirine -Stool for C. difficile PCR, stool culture, stool for Giardia, cryptosporidium antigen -Low suspicion for opportunistic infection given well-controlled HIV -if diarrhea persists and infectious work up negative, consider GI consult Cheryl Pickering MD, FACP, [facility] ([facility] O: [phone] F: [phone]
[2021-04-02] MEDS ORDERED: RILPIVIRINE 25 MG PO SCH (13:45)
[2021-04-02 16:30] LABS: Basophils # (Auto) 0.1 K/mm3 (0.0-0.1); Basophils % (Auto) 1.4 % (0.0-1.8); Eosinophils # (Auto) 0.2 K/mm3 (0.0-0.4); Eosinophils % (Auto) 2.6 % (0.0-4.3); Hematocrit 25.7 % (35.5-45.6); Hemoglobin 8.4 gm/dl (11.8-15.2); Lymphocytes # (Auto) 3.1 K/mm3 (1.2-5.4); Lymphocytes % (Auto) 44.3 % (13.4-35.0); Mean Corpuscular HGB Conc 33 % (32-34); Mean Corpuscular Volume 92 fl (84-94); Monocytes # (Auto) 0.9 K/mm3 (0.0-0.8); Monocytes % (Auto) 12.4 % (0.0-7.3); Platelet Count 319 K/mm3 (140-440); Red Blood Count 2.78 M/mm3 (3.65-5.03); Red Cell Distribution Width 15.6 % (13.2-15.2)
[2021-04-02 16:41] LABS: Calcium 8.6 mg/dL (8.4-10.2)
[2021-04-02] MEDS ORDERED: SODIUM CHLORIDE 0.9% 100 ML IV PRN (17:29)
--- NOTE | 2021-04-02 17:35 | Consultation ---
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 Patient states for the last week he has had crampy abdominal pain and loose stools. Denies any blood in his stools. Also has some nausea denies fevers cough cold congestion. Patient states he feels fatigued. Abdominal cramps are estimated at 5 out of 10 in severity and occur intermittently. In the emergency room patient is found to have potassium of 6.8, BUN of fifty- three and creatinine of 7.2, bicarb of fourteen. CT is consistent with colitis. pt was started on metronidazole , Levaquin. Patient was given some Bentyl and IV fluids. Patient likely has had some worsening of his renal function secondary to some dehydration from the diarrhea and his potassium is elevated. Patient was given insulin 7 units IV x1 dose D50, calcium gluconate 1 g. Kayexalate and sodium bicarb to get his potassium to come down. Patient will be admitted to the hospitalist service. Nephrology has been consulted. Past History Past Medical History: HIV/AIDS, renal failure Review of Systems All systems: negative Gastrointestinal: abdominal pain, nausea, vomiting, diarrhea Past History Past Medical History: HIV/AIDS, renal failure Social history: single Family history: hypertension Medications and Allergies Allergies Allergy/AdvReac Type Severity Reaction Status Date / Time Penicillins Allergy Unknown Verified 04/01/21 20:05 Active Meds: Active Medications Acetaminophen (Acetaminophen 325 Mg Tab) 650 mg PO Q4H PRN PRN Reason: Pain MILD(1-3)/Fever >100.5/ZELAYA Albuterol (Albuterol 2.5 Mg/3 Ml Nebu) 2.5 mg IH Q4HRT PRN PRN Reason: Shortness Of Breath Albuterol/Ipratropium (Ipratropium/Albuterol Sulfate 3 Ml Ampul.Neb) 1 ampul IH Q6HRT [facility] Darunavir (Darunavir 800 Mg Tab) 800 mg PO QDAY [facility] Famotidine (Famotidine 20 Mg/2 Ml Inj) 20 mg IV DAILY [facility] Last Admin: 04/02/21 10:24 Dose: 20 mg Heparin Sodium (Porcine) (Heparin 5,000 Unit/1 Ml Vial) 5,000 unit SUB-Q Q8HR [facility] Last Admin: 04/02/21 10:24 Dose: 5,000 unit Hydromorphone HCl (Hydromorphone 1 Mg/1 Ml Inj) 0.5 mg IV Q3H PRN PRN Reason: Pain , Severe (7-10) Dextrose/Sodium Chloride (D5/0.45ns) 1,000 mls @ 125 mls/hr IV DIRECT [facility] Sodium Chloride (Nacl 0.9%) 100 mls @ 999 mls/hr IV PRACHI PRN PRN Reason: Hypotension Sodium Bicarbonate 150 meq/ (Dextrose) 1,150 mls @ 125 mls/hr IV DIRECT [facility] Morphine Sulfate (Morphine 2 Mg/1 Ml Inj) 2 mg IV Q4H PRN PRN Reason: Pain, Moderate (4-6) Ondansetron HCl (Ondansetron 4 Mg/2 Ml Inj) 4 mg IV Q8H PRN PRN Reason: Nausea And Vomiting Ritonavir (Ritonavir 100 Mg Tab) 100 mg PO QDAY [facility] Sodium Chloride (Sodium Chloride 0.9% 10 Ml Flush Syringe) 10 ml IV BID [facility] Last Admin: 04/02/21 10:24 Dose: 10 ml Sodium Chloride (Sodium Chloride 0.9% 10 Ml Flush Syringe) 10 ml IV PRN PRN PRN Reason: LINE FLUSH Sodium Polystyrene Sulfonate (Sodium Polystyrene 15 Gm/60 Ml Oral Liqd) 30 gm P O ONCE ONE Stop: 04/02/21 17:33 Exam - Vital Signs Vital signs: Vital Signs Temp Pulse Resp BP Pulse Ox 98.5 F 88 20 119/60 99 04/01/21 20:03 04/01/21 20:03 04/01/21 20:03 04/01/21 20:03 04/01/21 20:03 - Physical Exam Narrative exam: General appearance: Present: no acute distress, well-nourished - EENT Eyes: Present: PERRL ENT: hearing intact, clear oral mucosa - Neck Neck: Present: supple, normal ROM - Respiratory Respiratory effort: normal Respiratory: bilateral: CTA - Cardiovascular Heart Sounds: Present: S1 & S2. Absent: rub, click - Extremities Extremities: pulses symmetrical, No edema Peripheral Pulses: within normal limits - Abdominal General gastrointestinal: Present: soft, non-tender, non-distended, normal bowel sounds Male genitourinary: Present: normal - Integumentary Integumentary: Present: clear, warm, dry - Musculoskeletal Musculoskeletal: gait normal, strength equal bilaterally - Psychiatric Psychiatric: appropriate mood/affect, intact judgment & insight - Neurologic Neurologic: CNII-XII intact, moves all extremities Results - Lab Results 04/02/21 15:48 04/02/21 15:48 Most recent lab results Calcium 8.6 mg/dL (8.4-10.2) 04/02/21 15:48 Assessment and Plan Impression: * ROMMEL on CKD 4 * hyperkalemia * metabolic acidosis * HIV * abdominal pain Plan: * added bicarb gtt * kayexalate prn, follow up k levels * dougie adv ckd--esrd * follow up crcl * will need linux unix administrator for solute and elec control * avoid nephrotoxins * strict i/os and daily lytes * renal diet
[2021-04-02] MEDS: RITONAVIR 100 MG TAB PO SCH (18:24)
[2021-04-02] MEDS: DARUNAVIR 800 MG TAB PO SCH (18:24)
[2021-04-02] MEDS: DOLUTEGRAVIR 50 MG TAB PO SCH (18:24)
[2021-04-02] MEDS: IPRATROPIUM/ALBUTEROL SULFATE 3 ML AMPUL.NEB IH SCH ×3 (18:27→20:53)
[2021-04-02 19:04] LABS: Hepatitis B Surface Antigen Non-Reactive (Negative); Hepatitis C Virus Antibody Non-Reactive (NonReactive)
[2021-04-02] MEDS: CALCIUM GLUCONATE 2,000 MG in SODIUM CHLORIDE 0.9% 100 ML IV ONE ×2 (20:07→22:51)
[2021-04-03] MEDS: HEPARIN 5,000 UNIT/1 ML VIAL SUB-Q SCH ×4 (01:28→22:06)
[2021-04-03] MEDS: IPRATROPIUM/ALBUTEROL SULFATE 3 ML AMPUL.NEB IH SCH ×4 (02:26→17:24)
[2021-04-03 06:10] LABS: Hematocrit 24.1 % (35.5-45.6); Hemoglobin 7.6 gm/dl (11.8-15.2); Mean Corpuscular HGB Conc 31 % (32-34); Mean Corpuscular Volume 92 fl (84-94); Platelet Count 277 K/mm3 (140-440); Red Blood Count 2.61 M/mm3 (3.65-5.03); Red Cell Distribution Width 15.5 % (13.2-15.2)
[2021-04-03 06:35] LABS: Eosinophils # (Auto) 0.3 K/mm3 (0.0-0.4); Eosinophils % (Auto) 4.9 % (0.0-4.3); Monocytes # (Auto) 0.8 K/mm3 (0.0-0.8); Monocytes % (Auto) 13.6 % (0.0-7.3)
[2021-04-03 08:27] LABS: Total Cells Counted 100
[2021-04-03 08:28] LABS: Anisocytosis 1+; Platelet Estimate Consistent w Auto
--- NOTE | 2021-04-03 09:10 | Progress Note ---
Assessment and Plan Impression: * ROMMEL on CKD 4 * hyperkalemia * metabolic acidosis * HIV * abdominal pain Plan: * added bicarb gtt * follow up lytes daily, pending today * kayexalate prn, follow up k levels * dougie adv ckd--esrd * follow up crcl * will need net programmer for solute and elec control * avoid nephrotoxins * strict i/os and daily lytes * renal diet Subjective Date of service: 04/03/21 Principal diagnosis: rommel, hyperkalemia Interval history: labs and chart reviewed events noted Objective - Exam Narrative Exam: General appearance: Present: no acute distress, well-nourished - EENT Eyes: Present: PERRL ENT: hearing intact, clear oral mucosa - Neck Neck: Present: supple, normal ROM - Respiratory Respiratory effort: normal Respiratory: bilateral: CTA - Cardiovascular Heart Sounds: Present: S1 & S2. Absent: rub, click - Extremities Extremities: pulses symmetrical, No edema Peripheral Pulses: within normal limits - Abdominal General gastrointestinal: Present: soft, non-tender, non-distended, normal bowel sounds Male genitourinary: Present: normal - Integumentary Integumentary: Present: clear, warm, dry - Musculoskeletal Musculoskeletal: gait normal, strength equal bilaterally - Psychiatric Psychiatric: appropriate mood/affect, intact judgment & insight - Neurologic Neurologic: CNII-XII intact, moves all extremities - Vital Signs Vital signs: Vital Signs - 12hr 04/02/21 04/02/21 04/02/21 21:20 21:30 21:46 Pulse Rate Respiratory Rate Blood Pressure 145/75 145/75 145/75 Blood Pressure [Left] O2 Sat by Pulse 98 100 99 Oximetry 04/02/21 04/02/21 04/02/21 22:00 22:16 22:30 Pulse Rate Respiratory Rate Blood Pressure 144/80 144/80 144/80 Blood Pressure [Left] O2 Sat by Pulse 97 98 99 Oximetry 04/02/21 04/02/21 04/02/21 22:46 23:00 23:16 Pulse Rate Respiratory Rate Blood Pressure 144/80 136/84 136/84 Blood Pressure [Left] O2 Sat by Pulse 99 99 97 Oximetry 04/02/21 04/02/21 04/03/21 23:36 23:46 00:00 Pulse Rate Respiratory Rate Blood Pressure 136/84 136/84 146/78 Blood Pressure [Left] O2 Sat by Pulse 98 99 99 Oximetry 04/03/21 04/03/21 04/03/21 00:16 00:18 00:30 Pulse Rate Respiratory Rate Blood Pressure 146/78 146/78 146/78 Blood Pressure [Left] O2 Sat by Pulse 99 98 99 Oximetry 04/03/21 04/03/21 04/03/21 00:46 01:00 01:16 Pulse Rate Respiratory Rate Blood Pressure 146/78 135/71 135/71 Blood Pressure [Left] O2 Sat by Pulse 98 99 98 Oximetry 04/03/21 04/03/21 04/03/21 01:30 01:46 01:50 Pulse Rate 81 Respiratory 16 Rate Blood Pressure 135/71 135/71 Blood Pressure 135/71 [Left] O2 Sat by Pulse 99 99 100 Oximetry 04/03/21 04/03/21 04/03/21 02:00 02:16 02:30 Pulse Rate Respiratory Rate Blood Pressure 142/79 142/79 142/79 Blood Pressure [Left] O2 Sat by Pulse 98 99 99 Oximetry 04/03/21 04/03/21 04/03/21 02:46 03:02 03:16 Pulse Rate Respiratory Rate Blood Pressure 142/79 142/79 142/79 Blood Pressure [Left] O2 Sat by Pulse 98 98 97 Oximetry 04/03/21 04/03/21 04/03/21 03:30 03:46 03:56 Pulse Rate 78 Respiratory 16 Rate Blood Pressure 142/79 142/79 Blood Pressure 142/83 [Left] O2 Sat by Pulse 97 98 98 Oximetry 04/03/21 04/03/21 04/03/21 04:00 04:16 04:46 Pulse Rate Respiratory Rate Blood Pressure 147/79 147/79 147/79 Blood Pressure [Left] O2 Sat by Pulse 97 97 100 Oximetry 04/03/21 04/03/21 05:00 06:27 Pulse Rate 79 Respiratory 16 Rate Blood Pressure 139/88 Blood Pressure 139/88 [Left] O2 Sat by Pulse 99 99 Oximetry - Lab 04/03/21 05:27 04/02/21 15:48 Most recent lab results Calcium 8.6 mg/dL (8.4-10.2) 04/02/21 15:48 Urine Creatinine 81.3 mg/dL (0.1-20.0) H 04/02/21 20:55 Medications & Allergies - Medications Allergies/Adverse Reactions: Allergies Penicillins Allergy (Verified 04/01/21 20:05) Unknown Active Medications: Generic Name Dose Route Start Last Admin Trade Name Freq PRN Reason Stop Dose Admin Acetaminophen 650 mg 04/02/21 01:14 Acetaminophen 325 Mg Tab PO Q4H PRN Pain MILD(1-3)/Fever >100.5/ZELAYA Albuterol 2.5 mg 04/02/21 01:14 Albuterol 2.5 Mg/3 Ml Nebu IH Q4HRT PRN Shortness Of Breath Albuterol/Ipratropium 1 ampul 04/02/21 02:00 04/03/21 02:27 Ipratropium/Albuterol Sulfate 3 Ml Ampul.Neb IH Not Given Q6HRT [facility] Darunavir 800 mg 04/02/21 16:00 04/02/21 18:24 Darunavir 800 Mg Tab PO 800 mg QDAY [facility] Administration Famotidine 20 mg 04/02/21 10:00 04/02/21 10:24 Famotidine 20 Mg/2 Ml Inj IV 20 mg DAILY [facility] Administration Heparin Sodium (Porcine) 5,000 unit 04/02/21 06:00 04/03/21 06:54 Heparin 5,000 Unit/1 Ml Vial SUB-Q 5,000 unit Q8HR [facility] Administration Hydromorphone HCl 0.5 mg 04/02/21 01:14 Hydromorphone 1 Mg/1 Ml Inj IV Q3H PRN Pain , Severe (7-10) Sodium Chloride 100 mls @ 999 mls/hr 04/02/21 17:29 Nacl 0.9% IV PRACHI PRN Hypotension Sodium Bicarbonate 150 meq/ 1,150 mls @ 125 mls/hr 04/02/21 18:30 Dextrose IV DIRECT [facility] Morphine Sulfate 2 mg 04/02/21 01:14 Morphine 2 Mg/1 Ml Inj IV Q4H PRN Pain, Moderate (4-6) Ondansetron HCl 4 mg 04/02/21 01:14 Ondansetron 4 Mg/2 Ml Inj IV Q8H PRN Nausea And Vomiting Ritonavir 100 mg 04/02/21 16:00 04/02/21 18:24 Ritonavir 100 Mg Tab PO 100 mg QDAY [facility] Administration Sodium Chloride 10 ml 04/02/21 10:00 04/03/21 01:29 Sodium Chloride 0.9% 10 Ml Flush Syringe IV Not Given BID [facility] Sodium Chloride 10 ml 04/02/21 01:14 Sodium Chloride 0.9% 10 Ml Flush Syringe IV PRN PRN LINE FLUSH
[2021-04-03] MEDS: FAMOTIDINE 20 MG/2 ML INJ IV SCH (11:01)
[2021-04-03] MEDS: DARUNAVIR 800 MG TAB PO SCH (11:01)
[2021-04-03] MEDS: DOLUTEGRAVIR 50 MG TAB PO SCH (11:01)
[2021-04-03] MEDS: RITONAVIR 100 MG TAB PO SCH (11:02)
[2021-04-03 11:33] LABS: Calcium 8.7 mg/dL (8.4-10.2)
--- NOTE | 2021-04-03 11:59 | Progress Note ---
Assessment and Plan Assessment and plan: #ROMMEL superimposed on CKD stage IV -Creatinine 7.3 (previously 6.8) -follows with [facility] -Nephrology consulted; appreciate recs. Patient will likely need hemodialysis per nephrology. Vascular surgery consulted for Vas-Cath placement. Will likely occur early next week. Renally dose medications and avoid nephrotoxic meds. Monitor with daily BMP #Hyperkalemia - potassium 6.3 -In the setting of ROMMEL on CKD stage IV -Status post calcium gluconate, sodium bicarb, insulin, Kayexalate -Pending repeat BMPs #Colitis -Continue regular diet as tolerated -Possibly viral but patient is afebrile with normal white count. Has been ongoing for several weeks ( may need outpatient colonoscopy to evaluate for possible inflammatory etiology). -Pending C. difficile and stool studies as recommended by infectious disease -Continue Zofran prn -Discontinued Flagyl and Levaquin -Infectious disease consulted; appreciate recs -Continue to monitor #Human immunodeficiency virus infection - follow with [facility] dept. - CD4 count reported to be in 1100's. - Is complaint on HAART therapy:Norvir, Prezista, rilpivirine #History of CKD stage IV - baseline? - nephro following #Dehydrationresolved -Status post IV fluids #Advanced care planning -Disease education conducted, care plan discussed, diagnoses discussed, prognosis discussed, and patient acknowledges understanding with care plan -Time: +30 min Disposition Plan: Continue medical management Total Time Spent with Patient (Minutes): 45 minutes History Interval history: No acute events over night. The patient denies fevers, chills, nausea, vomiting, abdominal pain, chest pain/pressure, shortness of breath, urinary symptoms, weakness, or confusion. Hospitalist Physical - Constitutional Vitals: Temp Pulse Resp BP Pulse Ox 97.8 F 79 16 139/88 99 04/02/21 18:59 04/03/21 06:27 04/03/21 06:27 04/03/21 06:27 04/03/21 06:27 General appearance: Present: no acute distress, well-nourished - EENT Eyes: Present: PERRL, EOM intact ENT: hearing intact, clear oral mucosa - Neck Neck: Present: supple, normal ROM - Respiratory Respiratory effort: normal Respiratory: bilateral: CTA - Cardiovascular Rhythm: regular Heart Sounds: Present: S1 & S2 - Extremities Extremities: no ischemia, pulses intact, pulses symmetrical, No edema, normal temperature, normal color, Full ROM Peripheral Pulses: within normal limits - Abdominal General gastrointestinal: soft, non-tender, non-distended, normal bowel sounds - Integumentary Integumentary: Present: clear, warm, dry - Psychiatric Psychiatric: appropriate mood/affect, intact judgment & insight, cooperative - Neurologic Neurologic: CNII-XII intact, moves all extremities - Allied Health Allied health notes reviewed: nursing Results - Labs CBC & Chem 7: 04/03/21 05:27 04/03/21 10:30 Labs: Laboratory Last Values WBC 6.2 K/mm3 (4.5-11.0) 04/03/21 05:27 RBC 2.61 M/mm3 (3.65-5.03) L 04/03/21 05:27 Hgb 7.6 gm/dl (11.8-15.2) L 04/03/21 05:27 Hct 24.1 % (35.5-45.6) L 04/03/21 05:27 MCV 92 fl (84-94) 04/03/21 05:27 MCH 29 pg (28-32) 04/03/21 05:27 MCHC 31 % (32-34) L 04/03/21 05:27 RDW 15.5 % (13.2-15.2) H 04/03/21 05:27 Plt Count 277 K/mm3 (140-440) 04/03/21 05:27 Lymph % (Auto) 44.3 % (13.4-35.0) H 04/02/21 15:48 [place] % (Auto) 13.6 % (0.0-7.3) H 04/03/21 05:27 Eos % (Auto) 4.9 % (0.0-4.3) H 04/03/21 05:27 Baso % (Auto) 1.4 % (0.0-1.8) 04/02/21 15:48 Lymph # (Auto) 3.1 K/mm3 (1.2-5.4) 04/02/21 15:48 [place]ruff # (Auto) 0.8 K/mm3 (0.0-0.8) 04/03/21 05:27 Eos # (Auto) 0.3 K/mm3 (0.0-0.4) 04/03/21 05:27 Baso # (Auto) 0.0 K/mm3 (0.0-0.1) 04/03/21 05:27 Add Manual Diff Complete 04/03/21 05:27 Total Counted 100 04/03/21 05:27 Seg Neutrophils % Residential Therapist 04/03/21 05:27 Seg Neuts % (Manual) 36.0 % (40.0-70.0) L 04/03/21 05:27 Band Neutrophils % 0 % 04/03/21 05:27 Lymphocytes % (Manual) 48.0 % (13.4-35.0) H 04/03/21 05:27 Reactive Lymphs % (Man) 0 % 04/03/21 05:27 Monocytes % (Manual) 9.0 % (0.0-7.3) H 04/03/21 05:27 Eosinophils % (Manual) 4.0 % (0.0-4.3) 04/03/21 05:27 Basophils % (Manual) 3.0 % (0.0-1.8) H 04/03/21 05:27 Metamyelocytes % 0 % 04/03/21 05:27 Myelocytes % 0 % 04/03/21 05:27 Promyelocytes % 0 % 04/03/21 05:27 Blast Cells % 0 % 04/03/21 05:27 Nucleated RBC % Not Reportable 04/03/21 05:27 Seg Neutrophils # 2.0 K/mm3 (1.8-7.7) 04/03/21 05:27 Seg Neutrophils # Man 2.2 K/mm3 (1.8-7.7) 04/03/21 05:27 Band Neutrophils # 0.0 K/mm3 04/03/21 05:27 Lymphocytes # (Manual) 3.0 K/mm3 (1.2-5.4) 04/03/21 05:27 Abs React Lymphs (Man) 0.0 K/mm3 04/03/21 05:27 Monocytes # (Manual) 0.6 K/mm3 (0.0-0.8) 04/03/21 05:27 Eosinophils # (Manual) 0.2 K/mm3 (0.0-0.4) 04/03/21 05:27 Basophils # (Manual) 0.2 K/mm3 (0.0-0.1) H 04/03/21 05:27 Metamyelocytes # 0.0 K/mm3 04/03/21 05:27 Myelocytes # 0.0 K/mm3 04/03/21 05:27 Promyelocytes # 0.0 K/mm3 04/03/21 05:27 Blast Cells # 0.0 K/mm3 04/03/21 05:27 WBC Morphology Not Reportable 04/03/21 05:27 Hypersegmented Neuts Not Reportable 04/03/21 05:27 Hyposegmented Neuts Not Reportable 04/03/21 05:27 Hypogranular Neuts Not Reportable 04/03/21 05:27 Smudge Cells Not Reportable 04/03/21 05:27 Toxic Granulation Not Reportable 04/03/21 05:27 Toxic Vacuolation Not Reportable 04/03/21 05:27 Dohle Bodies Not Reportable 04/03/21 05:27 Pelger-Huet Anomaly Not Reportable 04/03/21 05:27 Davion Rods Not Reportable 04/03/21 05:27 Platelet Estimate Consistent w auto 04/03/21 05:27 Clumped Platelets Not Reportable 04/03/21 05:27 Plt Clumps, EDTA Not Reportable 04/03/21 05:27 Large Platelets Not Reportable 04/03/21 05:27 Giant Platelets Not Reportable 04/03/21 05:27 Platelet Satelliting Not Reportable 04/03/21 05:27 Plt Morphology Comment Not Reportable 04/03/21 05:27 RBC Morphology Not Reportable 04/03/21 05:27 Dimorphic RBCs Not Reportable 04/03/21 05:27 Polychromasia Not Reportable 04/03/21 05:27 Hypochromasia Not Reportable 04/03/21 05:27 Poikilocytosis Not Reportable 04/03/21 05:27 Anisocytosis 1+ 04/03/21 05:27 Microcytosis Not Reportable 04/03/21 05:27 Macrocytosis Not Reportable 04/03/21 05:27 Spherocytes Not Reportable 04/03/21 05:27 Pappenheimer Bodies Not Reportable 04/03/21 05:27 Sickle Cells Not Reportable 04/03/21 05:27 Target Cells Not Reportable 04/03/21 05:27 Tear Drop Cells Not Reportable 04/03/21 05:27 Ovalocytes Not Reportable 04/03/21 05:27 Helmet Cells Not Reportable 04/03/21 05:27 [place] Bodies Not Reportable 04/03/21 05:27 [place] Rings Not Reportable 04/03/21 05:27 [place] Cells Not Reportable 04/03/21 05:27 Bite Cells Not Reportable 04/03/21 05:27 Crenated Cell Not Reportable 04/03/21 05:27 Elliptocytes Not Reportable 04/03/21 05:27 Acanthocytes (Spur) Not Reportable 04/03/21 05:27 Rouleaux Not Reportable 04/03/21 05:27 Hemoglobin C Crystals Not Reportable 04/03/21 05:27 Schistocytes Not Reportable 04/03/21 05:27 Malaria parasites Not Reportable 04/03/21 05:27 Enrique Bodies Not Reportable 04/03/21 05:27 Hem Pathologist Commnt No 04/03/21 05:27 Sodium 139 mmol/L (137-145) 04/03/21 10:30 Potassium 6.3 mmol/L (3.6-5.0) H* 04/03/21 10:30 Chloride 113.2 mmol/L (98-107) H 04/03/21 10:30 Carbon Dioxide 15 mmol/L (22-30) L 04/03/21 10:30 Anion Gap 17 mmol/L 04/03/21 10:30 BUN 46 mg/dL (9-20) H 04/03/21 10:30 Creatinine 7.3 mg/dL (0.8-1.3) H 04/03/21 10:30 Estimated GFR 10 ml/min 04/03/21 10:30 BUN/Creatinine Ratio 6 % 04/03/21 10:30 Glucose 107 mg/dL (75-100) H 04/03/21 10:30 POC Glucose 78 mg/dL (70-105) 04/02/21 18:29 Calcium 8.7 mg/dL (8.4-10.2) 04/03/21 10:30 Total Bilirubin < 0.20 mg/dL (0.1-1.2) 04/01/21 20:50 AST 14 units/L (5-40) 04/01/21 20:50 ALT 8 units/L (7-56) 04/01/21 20:50 Alkaline Phosphatase 89 units/L (35-129) 04/01/21 20:50 Total Protein 7.6 g/dL (6.3-8.2) 04/01/21 20:50 Albumin 3.7 g/dL (3.9-5) L 04/01/21 20:50 Albumin/Globulin Ratio 0.9 % 04/01/21 20:50 Lipase 67 units/L (13-60) H 04/01/21 20:50 Urine Color Yellow (Yellow) 04/01/21 Unknown Urine Turbidity Slightly-cloudy (Clear) 04/01/21 Unknown Urine pH 5.0 (5.0-7.0) 04/01/21 Unknown Ur Specific [place] 1.010 (1.003-1.030) 04/01/21 Unknown Urine Protein >500 mg/dL (Negative) 04/01/21 Unknown Urine Glucose (UA) Neg mg/dL (Negative) 04/01/21 Unknown Urine Ketones Neg mg/dL (Negative) 04/01/21 Unknown Urine Blood Neg (Negative) 04/01/21 Unknown Urine Nitrite Neg (Negative) 04/01/21 Unknown Urine Bilirubin Neg (Negative) 04/01/21 Unknown Urine Urobilinogen < 2.0 mg/dL (<2.0) 04/01/21 Unknown Ur Leukocyte Esterase Neg (Negative) 04/01/21 Unknown Urine WBC (Auto) 7.0 /HPF (0.0-6.0) H 04/01/21 Unknown Urine RBC (Auto) 1.0 /HPF (0.0-6.0) 04/01/21 Unknown U Epithel Cells (Auto) 1.0 /HPF (0-13.0) 04/01/21 Unknown Urine Mucus Few /HPF 04/01/21 Unknown Urine Creatinine 81.3 mg/dL (0.1-20.0) H 04/02/21 20:55 Hepatitis A IgM Ab Non-reactive (NonReactive) 04/02/21 18:18 Hep Bs Antigen Non-reactive (Negative) 04/02/21 18:18 Hep B Core IgM Ab Non-reactive (NonReactive) 04/02/21 18:18 Hepatitis C Antibody Non-reactive (NonReactive) 04/02/21 18:18 Microbiology: Microbiology 04/03/21 05:00 Stool Stool for WBCs - Final 04/03/21 05:00 Stool Cryptosporidium Exam - Final NEGATIVE 04/03/21 05:00 Stool Giardia Antigen (WM) - Final NEGATIVE Active Medications - Current Medications Current Medications: Generic Name Dose Route Start Last Admin Trade Name Freq PRN Reason Stop Dose Admin Acetaminophen 650 mg 04/02/21 01:14 Acetaminophen 325 Mg Tab PO Q4H PRN Pain MILD(1-3)/Fever >100.5/ZELAYA Albuterol 2.5 mg 04/02/21 01:14 04/03/21 11:02 Albuterol 2.5 Mg/3 Ml Nebu IH 2.5 mg Q4HRT PRN Administration Shortness Of Breath Albuterol/Ipratropium 1 ampul 04/02/21 02:00 04/03/21 11:02 Ipratropium/Albuterol Sulfate 3 Ml Ampul.Neb IH 1 ampul Q6HRT MOODY Administration Darunavir 800 mg 04/02/21 16:00 04/03/21 11:01 Darunavir 800 Mg Tab PO 800 mg QDAY MOODY Administration Famotidine 20 mg 04/02/21 10:00 04/03/21 11:01 Famotidine 20 Mg/2 Ml Inj IV 20 mg DAILY MOODY Administration Heparin Sodium (Porcine) 5,000 unit 04/02/21 06:00 04/03/21 06:54 Heparin 5,000 Unit/1 Ml Vial SUB-Q 5,000 unit Q8HR MOODY Administration Hydromorphone HCl 0.5 mg 04/02/21 01:14 Hydromorphone 1 Mg/1 Ml Inj IV Q3H PRN Pain , Severe (7-10) Sodium Chloride 100 mls @ 999 mls/hr 04/02/21 17:29 Nacl 0.9% IV PRACHI PRN Hypotension Sodium Bicarbonate 150 meq/ 1,150 mls @ 125 mls/hr 04/02/21 18:30 Dextrose IV DIRECT MOODY Morphine Sulfate 2 mg 04/02/21 01:14 Morphine 2 Mg/1 Ml Inj IV Q4H PRN Pain, Moderate (4-6) Ondansetron HCl 4 mg 04/02/21 01:14 Ondansetron 4 Mg/2 Ml Inj IV Q8H PRN Nausea And Vomiting Ritonavir 100 mg 04/02/21 16:00 04/03/21 11:02 Ritonavir 100 Mg Tab PO 100 mg QDAY MOODY Administration Sodium Chloride 10 ml 04/02/21 10:00 04/03/21 11:02 Sodium Chloride 0.9% 10 Ml Flush Syringe IV 10 ml BID MOODY Administration Sodium Chloride 10 ml 04/02/21 01:14 Sodium Chloride 0.9% 10 Ml Flush Syringe IV PRN PRN LINE FLUSH
[2021-04-03] MEDS ORDERED: CALCIUM GLUCONATE 1,000 MG in SODIUM CHLORIDE 0.9% 100 ML IV ONE (13:00)
[2021-04-03] MEDS ORDERED: DEXTROSE 50% IN WATER (25GM) 50 ML SYRINGE IV ONE (13:00)
[2021-04-03] MEDS ORDERED: INSULIN REGULAR, HUMAN 100 UNITS/1 ML IV ONE (13:00)
[2021-04-03 17:34] LABS: Calcium 8.8 mg/dL (8.4-10.2)
[2021-04-03] MEDS ORDERED: INSULIN REGULAR, HUMAN 100 UNITS/1 ML ONE (17:50)
[2021-04-03] MEDS: SODIUM POLYSTYRENE 15 GM/60 ML ORAL LIQD PO SCH ×2 (18:06→22:06)
[2021-04-04] MEDS ORDERED: hydrALAZINE 20 MG/1 ML INJ IV PRN (01:32)
[2021-04-04] MEDS: IPRATROPIUM/ALBUTEROL SULFATE 3 ML AMPUL.NEB IH SCH ×4 (03:37→21:10)
[2021-04-04 05:35] LABS: Hemoglobin 7.8 gm/dl (11.8-15.2); Mean Corpuscular HGB Conc 32 % (32-34); Mean Corpuscular Volume 94 fl (84-94); Platelet Count 321 K/mm3 (140-440); Red Blood Count 2.57 M/mm3 (3.65-5.03); Red Cell Distribution Width 15.4 % (13.2-15.2)
[2021-04-04 05:52] LABS: Calcium 8.9 mg/dL (8.4-10.2)
[2021-04-04 06:27] LABS: Anisocytosis 1+; Band Neutrophils # (Manual) 0.1 K/mm3; Basophils % (Manual) 0 % (0.0-1.8); Total Cells Counted 100
[2021-04-04 06:28] LABS: Platelet Estimate Consistent w Auto
[2021-04-04] MEDS: HEPARIN 5,000 UNIT/1 ML VIAL SUB-Q SCH ×3 (06:35→22:17)
--- NOTE | 2021-04-04 09:39 | Consultation ---
History of Present Illness - Reason for Consult Consult date: 04/04/21 Acute renal failure likely on chronic renal failure - History of Present Illness Patient with a history of end-stage renal disease who previously is undergone attempted placement of a brachiocephalic left arm fistula at [facility]. Dr. Stevens was the surgeon. He has a palpable thrill at the anastomosis the remainder of the fistula is atretic with no thrill. Patient with no complaints. No difficulty breathing. Past History Past Medical History: HIV/AIDS, renal failure Social history: single Family history: hypertension Medications and Allergies Allergies Allergy/AdvReac Type Severity Reaction Status Date / Time Penicillins Allergy Unknown Verified 04/01/21 20:05 Active Meds: Active Medications Acetaminophen (Acetaminophen 325 Mg Tab) 650 mg PO Q4H PRN PRN Reason: Pain MILD(1-3)/Fever >100.5/ZELAYA Albuterol (Albuterol 2.5 Mg/3 Ml Nebu) 2.5 mg IH Q4HRT PRN PRN Reason: Shortness Of Breath Albuterol/Ipratropium (Ipratropium/Albuterol Sulfate 3 Ml Ampul.Neb) 1 ampul IH BIDRT [facility] Darunavir (Darunavir 800 Mg Tab) 800 mg PO QDAY [facility] Last Admin: 04/03/21 11:01 Dose: 800 mg Famotidine (Famotidine 20 Mg/2 Ml Inj) 20 mg IV DAILY [facility] Last Admin: 04/03/21 11:01 Dose: 20 mg Heparin Sodium (Porcine) (Heparin 5,000 Unit/1 Ml Vial) 5,000 unit SUB-Q Q8HR [facility] Last Admin: 04/04/21 06:35 Dose: 5,000 unit Hydralazine HCl (Hydralazine 20 Mg/1 Ml Inj) 10 mg IV Q6HR PRN PRN Reason: Hypertension Last Admin: 04/04/21 01:52 Dose: 10 mg Hydromorphone HCl (Hydromorphone 1 Mg/1 Ml Inj) 0.5 mg IV Q3H PRN PRN Reason: Pain , Severe (7-10) Sodium Chloride (Nacl 0.9%) 100 mls @ 999 mls/hr IV PRACHI PRN PRN Reason: Hypotension Sodium Bicarbonate 150 meq/ (Dextrose) 1,150 mls @ 125 mls/hr IV DIRECT [facility] Morphine Sulfate (Morphine 2 Mg/1 Ml Inj) 2 mg IV Q4H PRN PRN Reason: Pain, Moderate (4-6) Ondansetron HCl (Ondansetron 4 Mg/2 Ml Inj) 4 mg IV Q8H PRN PRN Reason: Nausea And Vomiting Ritonavir (Ritonavir 100 Mg Tab) 100 mg PO QDAY [facility] Last Admin: 04/03/21 11:02 Dose: 100 mg Sodium Chloride (Sodium Chloride 0.9% 10 Ml Flush Syringe) 10 ml IV BID [facility] Last Admin: 04/03/21 22:10 Dose: 10 ml Sodium Chloride (Sodium Chloride 0.9% 10 Ml Flush Syringe) 10 ml IV PRN PRN PRN Reason: LINE FLUSH Review of Systems All systems: negative Exam - Constitutional Vitals: Temp Pulse Resp BP Pulse Ox 97.9 F 90 20 162/78 98 04/03/21 19:35 04/04/21 08:38 04/04/21 08:38 04/04/21 08:08 04/04/21 08:47 General appearance: Present: no acute distress - EENT Eyes: Present: EOM intact ENT: hearing intact - Neck Neck: Present: supple, normal ROM - Respiratory Respiratory effort: normal - Abdominal General gastrointestinal: Present: deferred Male genitourinary: Present: deferred - Rectal Rectal Exam: deferred - Psychiatric Psychiatric: appropriate mood/affect, cooperative Results - Labs CBC & Chem 7: 04/04/21 05:00 04/04/21 05:00 Labs: Abnormal lab results 04/03/21 04/03/21 04/03/21 Range/Units 10:30 17:02 17:28 RBC (3.65-5.03) M/mm3 Hgb (11.8-15.2) gm/dl Hct (35.5-45.6) % RDW (13.2-15.2) % Seg Neuts % (Manual) (40.0-70.0) % Lymphocytes % (Manual) (13.4-35.0) % Potassium 6.3 H* 5.4 H (3.6-5.0) mmol/L Chloride 113.2 H 113.1 H (98-107) mmol/L Carbon Dioxide 15 L 14 L (22-30) mmol/L BUN 46 H 44 H (9-20) mg/dL Creatinine 7.3 H 7.5 H (0.8-1.3) mg/dL Glucose 107 H 109 H (75-100) mg/dL POC Glucose 108 H (70-105) mg/dL 04/04/21 04/04/21 Range/Units 05:00 05:00 RBC 2.57 L (3.65-5.03) M/mm3 Hgb 7.8 L (11.8-15.2) gm/dl Hct 24.0 L (35.5-45.6) % RDW 15.4 H (13.2-15.2) % Seg Neuts % (Manual) 31.0 L (40.0-70.0) % Lymphocytes % (Manual) 58.0 H (13.4-35.0) % Potassium (3.6-5.0) mmol/L Chloride 113.2 H (98-107) mmol/L Carbon Dioxide 12 L (22-30) mmol/L BUN 43 H (9-20) mg/dL Creatinine 7.8 H (0.8-1.3) mg/dL Glucose (75-100) mg/dL POC Glucose (70-105) mg/dL Assessment and Plan Patient with failed left upper arm brachiocephalic fistula performed at [facility]. If patient needs to initiate dialysis during this hospitalization, we will place appropriate catheter. Management per nephrology.
[2021-04-04] MEDS ORDERED: IPRATROPIUM/ALBUTEROL SULFATE 3 ML AMPUL.NEB IH SCH (10:00)
[2021-04-04] MEDS: SODIUM BICARBONATE 150 MEQ in DEXTROSE 5% IN WATER 1,000 ML IV SCH ×2 (10:04→22:16)
[2021-04-04] MEDS: FAMOTIDINE 20 MG/2 ML INJ IV SCH (10:14)
[2021-04-04] MEDS: RITONAVIR 100 MG TAB PO SCH (10:14)
[2021-04-04] MEDS: DOLUTEGRAVIR 50 MG TAB PO SCH (10:15)
[2021-04-04] MEDS: DARUNAVIR 800 MG TAB PO SCH (10:15)
--- NOTE | 2021-04-04 10:37 | Progress Note ---
Assessment and Plan Impression: * ROMMEL on CKD 5--now ESRD * hyperkalemia * metabolic acidosis * HIV * abdominal pain Plan: * added bicarb gtt * follow up lytes daily, pending today * kayexalate prn, follow up k levels * dougie adv ckd--esrd * follow up crcl * will need state pilot for solute and elec control * avoid nephrotoxins * strict i/os and daily lytes * renal diet * had extensive conversation with patient, he understands the plan and willing to proceed with plan * needs outpatient clinic arrangement[facility] Date of service: 04/04/21 Principal diagnosis: rommel, hyperkalemia Interval history: labs and chart reviewed events noted Objective - Exam Narrative Exam: primary team exam noted - Vital Signs Vital signs: Vital Signs - 12hr 04/03/21 04/03/21 04/04/21 23:01 23:31 00:31 Pulse Rate 103 H 86 92 H Pulse Rate [ Bilateral Throughout] Respiratory 21 21 27 H Rate Respiratory Rate [Bilateral Throughout] Blood Pressure 179/92 170/76 169/68 Blood Pressure [Left] O2 Sat by Pulse 97 100 99 Oximetry 04/04/21 04/04/21 04/04/21 01:01 01:31 01:52 Pulse Rate 90 89 92 H Pulse Rate [ Bilateral Throughout] Respiratory 26 H 23 Rate Respiratory Rate [Bilateral Throughout] Blood Pressure 176/68 170/76 170/76 Blood Pressure [Left] O2 Sat by Pulse 98 100 Oximetry 04/04/21 04/04/21 04/04/21 02:01 02:31 03:31 Pulse Rate 103 H 99 H 90 Pulse Rate [ Bilateral Throughout] Respiratory 17 26 H 16 Rate Respiratory Rate [Bilateral Throughout] Blood Pressure 177/69 158/79 163/72 Blood Pressure [Left] O2 Sat by Pulse 100 100 100 Oximetry 04/04/21 04/04/21 04/04/21 03:37 04:01 04:31 Pulse Rate 110 H 103 H Pulse Rate [ 113 H Bilateral Throughout] Respiratory 25 H Rate Respiratory 20 Rate [Bilateral Throughout] Blood Pressure 157/64 147/59 Blood Pressure [Left] O2 Sat by Pulse 97 99 Oximetry 04/04/21 04/04/21 04/04/21 05:01 05:31 06:01 Pulse Rate 97 H 96 H 92 H Pulse Rate [ Bilateral Throughout] Respiratory 22 25 H 24 Rate Respiratory Rate [Bilateral Throughout] Blood Pressure 155/71 145/52 150/42 Blood Pressure [Left] O2 Sat by Pulse 98 97 97 Oximetry 04/04/21 04/04/21 04/04/21 06:31 07:01 07:31 Pulse Rate 89 96 H 105 H Pulse Rate [ Bilateral Throughout] Respiratory 23 24 21 Rate Respiratory Rate [Bilateral Throughout] Blood Pressure 162/78 162/78 162/78 Blood Pressure [Left] O2 Sat by Pulse 97 98 99 Oximetry 04/04/21 04/04/21 04/04/21 08:01 08:08 08:38 Pulse Rate 92 H 92 H Pulse Rate [ 90 Bilateral Throughout] Respiratory 25 H 25 H Rate Respiratory 20 Rate [Bilateral Throughout] Blood Pressure 162/78 Blood Pressure 162/78 [Left] O2 Sat by Pulse 100 100 Oximetry 04/04/21 04/04/21 08:42 08:47 Pulse Rate Pulse Rate [ Bilateral Throughout] Respiratory Rate Respiratory Rate [Bilateral Throughout] Blood Pressure Blood Pressure [Left] O2 Sat by Pulse 98 98 Oximetry - Lab 04/04/21 05:00 04/04/21 05:00 Most recent lab results Calcium 8.9 mg/dL (8.4-10.2) 04/04/21 05:00 Phosphorus 4.50 mg/dL (2.5-4.5) 04/04/21 05:00 Magnesium 2.20 mg/dL (1.7-2.3) 04/04/21 05:00 Urine Creatinine 81.3 mg/dL (0.1-20.0) H 04/02/21 20:55 Medications & Allergies - Medications Allergies/Adverse Reactions: Allergies Penicillins Allergy (Verified 04/01/21 20:05) Unknown Active Medications: Generic Name Dose Route Start Last Admin Trade Name Freq PRN Reason Stop Dose Admin Acetaminophen 650 mg 04/02/21 01:14 Acetaminophen 325 Mg Tab PO Q4H PRN Pain MILD(1-3)/Fever >100.5/ZELAYA Albuterol 2.5 mg 04/04/21 12:00 Albuterol 2.5 Mg/3 Ml Nebu IH Q4HRT PRN Shortness Of Breath Albuterol/Ipratropium 1 ampul 04/04/21 20:00 Ipratropium/Albuterol Sulfate 3 Ml Ampul.Neb IH BIDRT MOODY Darunavir 800 mg 04/02/21 16:00 04/04/21 10:15 Darunavir 800 Mg Tab PO 800 mg QDAY MOODY Administration Famotidine 20 mg 04/02/21 10:00 04/04/21 10:14 Famotidine 20 Mg/2 Ml Inj IV 20 mg DAILY MOODY Administration Heparin Sodium (Porcine) 5,000 unit 04/02/21 06:00 04/04/21 06:35 Heparin 5,000 Unit/1 Ml Vial SUB-Q 5,000 unit Q8HR MOODY Administration Hydralazine HCl 10 mg 04/04/21 01:32 04/04/21 01:52 Hydralazine 20 Mg/1 Ml Inj IV 10 mg Q6HR PRN Administration Hypertension Hydromorphone HCl 0.5 mg 04/02/21 01:14 Hydromorphone 1 Mg/1 Ml Inj IV Q3H PRN Pain , Severe (7-10) Sodium Chloride 100 mls @ 999 mls/hr 04/02/21 17:29 Nacl 0.9% IV PRACHI PRN Hypotension Sodium Bicarbonate 150 meq/ 1,150 mls @ 125 mls/hr 04/02/21 18:30 04/04/21 10:04 Dextrose IV 125 mls/hr DIRECT MOODY Administration Morphine Sulfate 2 mg 04/02/21 01:14 Morphine 2 Mg/1 Ml Inj IV Q4H PRN Pain, Moderate (4-6) Ondansetron HCl 4 mg 04/02/21 01:14 Ondansetron 4 Mg/2 Ml Inj IV Q8H PRN Nausea And Vomiting Ritonavir 100 mg 04/02/21 16:00 04/04/21 10:14 Ritonavir 100 Mg Tab PO 100 mg QDAY MOODY Administration Sodium Chloride 10 ml 04/02/21 10:00 04/04/21 10:06 Sodium Chloride 0.9% 10 Ml Flush Syringe IV 10 ml BID MOODY Administration Sodium Chloride 10 ml 04/02/21 01:14 Sodium Chloride 0.9% 10 Ml Flush Syringe IV PRN PRN LINE FLUSH
[2021-04-04] MEDS ORDERED: SODIUM CHLORIDE 0.9% 100 ML IV PRN (10:38)
--- NOTE | 2021-04-04 11:01 | Progress Note ---
Assessment and Plan Assessment and plan: #ROMMEL superimposed on CKD stage IV -Creatinine 7.8 (previously 7.3) -[facility]s [facility] -Nephrology consulted; appreciate recs. Patient will likely need hemodialysis per nephrology. Vascular surgery consulted for Vas-Cath placement. Will likely occur early next week. Renally dose medications and avoid nephrotoxic meds. Monitor with daily BMP #Hyperkalemia - potassium 5.0 -In the setting of ROMMEL on CKD stage IV -Status post calcium gluconate, sodium bicarb, insulin, Kayexalate -Pending repeat BMPs #Colitis -Continue regular diet as tolerated -Possibly viral but patient is afebrile with normal white count. Has been ongoing for several weeks ( may need outpatient colonoscopy to evaluate for possible inflammatory etiology). -Pending C. difficile and stool studies as recommended by infectious disease -Continue Zofran prn -Discontinued Flagyl and Levaquin -Infectious disease consulted; appreciate recs -Continue to monitor #Human immunodeficiency virus infection - follow with [facility] dept. - CD4 count reported to be in 1100's. - Is complaint on HAART therapy:Norvir, Prezista, rilpivirine #History of CKD stage IV - baseline? -Nephrology consulted; appreciate recs #Dehydrationresolved -Status post IV fluids #Advanced care planning -Disease education conducted, care plan discussed, diagnoses discussed, prognosis discussed, and patient acknowledges understanding with care plan -Time: +30 min Disposition Plan: Continue medical management Total Time Spent with Patient (Minutes): 45 minutes History Interval history: No acute events over night. The patient denies fevers, chills, nausea, vomiting, abdominal pain, chest pain/pressure, shortness of breath, urinary symptoms, weakness, or confusion. Hospitalist Physical - Constitutional Vitals: Temp Pulse Resp BP Pulse Ox 97.6 F 96 H 18 137/74 98 04/04/21 09:41 04/04/21 09:41 04/04/21 09:41 04/04/21 09:41 04/04/21 09:41 General appearance: Present: no acute distress, well-nourished - EENT Eyes: Present: PERRL, EOM intact ENT: hearing intact, clear oral mucosa, dentition normal - Neck Neck: Present: supple, normal ROM - Respiratory Respiratory effort: normal Respiratory: bilateral: CTA - Cardiovascular Rhythm: regular Heart Sounds: Present: S1 & S2 - Extremities Extremities: no ischemia, pulses intact, pulses symmetrical, No edema, normal temperature, normal color, Full ROM Peripheral Pulses: within normal limits - Abdominal General gastrointestinal: soft, non-tender, non-distended, normal bowel sounds - Integumentary Integumentary: Present: clear, warm, dry - Psychiatric Psychiatric: appropriate mood/affect, cooperative - Neurologic Neurologic: CNII-XII intact, moves all extremities - Allied Health Allied health notes reviewed: nursing Results - Labs CBC & Chem 7: 04/04/21 05:00 04/04/21 05:00 Labs: Laboratory Last Values WBC 7.2 K/mm3 (4.5-11.0) 04/04/21 05:00 RBC 2.57 M/mm3 (3.65-5.03) L 04/04/21 05:00 Hgb 7.8 gm/dl (11.8-15.2) L 04/04/21 05:00 Hct 24.0 % (35.5-45.6) L 04/04/21 05:00 MCV 94 fl (84-94) 04/04/21 05:00 MCH 30 pg (28-32) 04/04/21 05:00 MCHC 32 % (32-34) 04/04/21 05:00 RDW 15.4 % (13.2-15.2) H 04/04/21 05:00 Plt Count 321 K/mm3 (140-440) 04/04/21 05:00 Lymph % (Auto) 44.3 % (13.4-35.0) H 04/02/21 15:48 [place] % (Auto) 13.6 % (0.0-7.3) H 04/03/21 05:27 Eos % (Auto) 4.9 % (0.0-4.3) H 04/03/21 05:27 Baso % (Auto) 1.4 % (0.0-1.8) 04/02/21 15:48 Lymph # (Auto) 3.1 K/mm3 (1.2-5.4) 04/02/21 15:48 [place] # (Auto) 0.8 K/mm3 (0.0-0.8) 04/03/21 05:27 Eos # (Auto) 0.3 K/mm3 (0.0-0.4) 04/03/21 05:27 Baso # (Auto) 0.0 K/mm3 (0.0-0.1) 04/03/21 05:27 Add Manual Diff Complete 04/04/21 05:00 Total Counted 100 04/04/21 05:00 Seg Neutrophils % Sweat Box Attendant 04/04/21 05:00 Seg Neuts % (Manual) 31.0 % (40.0-70.0) L 04/04/21 05:00 Band Neutrophils % 1.0 % 04/04/21 05:00 Lymphocytes % (Manual) 58.0 % (13.4-35.0) H 04/04/21 05:00 Reactive Lymphs % (Man) 0 % 04/04/21 05:00 Monocytes % (Manual) 7.0 % (0.0-7.3) 04/04/21 05:00 Eosinophils % (Manual) 3.0 % (0.0-4.3) 04/04/21 05:00 Basophils % (Manual) 0 % (0.0-1.8) 04/04/21 05:00 Metamyelocytes % 0 % 04/04/21 05:00 Myelocytes % 0 % 04/04/21 05:00 Promyelocytes % 0 % 04/04/21 05:00 Blast Cells % 0 % 04/04/21 05:00 Nucleated RBC % Not Reportable 04/04/21 05:00 Seg Neutrophils # 2.0 K/mm3 (1.8-7.7) 04/03/21 05:27 Seg Neutrophils # Man 2.2 K/mm3 (1.8-7.7) 04/04/21 05:00 Band Neutrophils # 0.1 K/mm3 04/04/21 05:00 Lymphocytes # (Manual) 4.2 K/mm3 (1.2-5.4) 04/04/21 05:00 Abs React Lymphs (Man) 0.0 K/mm3 04/04/21 05:00 Monocytes # (Manual) 0.5 K/mm3 (0.0-0.8) 04/04/21 05:00 Eosinophils # (Manual) 0.2 K/mm3 (0.0-0.4) 04/04/21 05:00 Basophils # (Manual) 0.0 K/mm3 (0.0-0.1) 04/04/21 05:00 Metamyelocytes # 0.0 K/mm3 04/04/21 05:00 Myelocytes # 0.0 K/mm3 04/04/21 05:00 Promyelocytes # 0.0 K/mm3 04/04/21 05:00 Blast Cells # 0.0 K/mm3 04/04/21 05:00 WBC Morphology Not Reportable 04/04/21 05:00 Hypersegmented Neuts Not Reportable 04/04/21 05:00 Hyposegmented Neuts Not Reportable 04/04/21 05:00 Hypogranular Neuts Not Reportable 04/04/21 05:00 Smudge Cells Not Reportable 04/04/21 05:00 Toxic Granulation Not Reportable 04/04/21 05:00 Toxic Vacuolation Not Reportable 04/04/21 05:00 Dohle Bodies Not Reportable 04/04/21 05:00 Pelger-Huet Anomaly Not Reportable 04/04/21 05:00 Davion Rods Not Reportable 04/04/21 05:00 Platelet Estimate Consistent w auto 04/04/21 05:00 Clumped Platelets Not Reportable 04/04/21 05:00 Plt Clumps, EDTA Not Reportable 04/04/21 05:00 Large Platelets Not Reportable 04/04/21 05:00 Giant Platelets Not Reportable 04/04/21 05:00 Platelet Satelliting Not Reportable 04/04/21 05:00 Plt Morphology Comment Not Reportable 04/04/21 05:00 RBC Morphology Not Reportable 04/04/21 05:00 Dimorphic RBCs Not Reportable 04/04/21 05:00 Polychromasia Not Reportable 04/04/21 05:00 Hypochromasia Not Reportable 04/04/21 05:00 Poikilocytosis Not Reportable 04/04/21 05:00 Anisocytosis 1+ 04/04/21 05:00 Microcytosis Not Reportable 04/04/21 05:00 Macrocytosis Not Reportable 04/04/21 05:00 Spherocytes Not Reportable 04/04/21 05:00 Pappenheimer Bodies Not Reportable 04/04/21 05:00 Sickle Cells Not Reportable 04/04/21 05:00 Target Cells Not Reportable 04/04/21 05:00 Tear Drop Cells Not Reportable 04/04/21 05:00 Ovalocytes Not Reportable 04/04/21 05:00 Helmet Cells Not Reportable 04/04/21 05:00 [place] Bodies Not Reportable 04/04/21 05:00 [place] Rings Not Reportable 04/04/21 05:00 [place] Cells Not Reportable 04/04/21 05:00 Bite Cells Not Reportable 04/04/21 05:00 Crenated Cell Not Reportable 04/04/21 05:00 Elliptocytes Not Reportable 04/04/21 05:00 Acanthocytes (Spur) Not Reportable 04/04/21 05:00 Rouleaux Not Reportable 04/04/21 05:00 Hemoglobin C Crystals Not Reportable 04/04/21 05:00 Schistocytes Not Reportable 04/04/21 05:00 Malaria parasites Not Reportable 04/04/21 05:00 Enrique Bodies Not Reportable 04/04/21 05:00 Hem Pathologist Commnt No 04/04/21 05:00 Sodium 140 mmol/L (137-145) 04/04/21 05:00 Potassium 5.0 mmol/L (3.6-5.0) 04/04/21 05:00 Chloride 113.2 mmol/L (98-107) H 04/04/21 05:00 Carbon Dioxide 12 mmol/L (22-30) L 04/04/21 05:00 Anion Gap 20 mmol/L 04/04/21 05:00 BUN 43 mg/dL (9-20) H 04/04/21 05:00 Creatinine 7.8 mg/dL (0.8-1.3) H 04/04/21 05:00 Estimated GFR 9 ml/min 04/04/21 05:00 BUN/Creatinine Ratio 6 % 04/04/21 05:00 Glucose 92 mg/dL (75-100) 04/04/21 05:00 POC Glucose 108 mg/dL (70-105) H 04/03/21 17:28 Calcium 8.9 mg/dL (8.4-10.2) 04/04/21 05:00 Phosphorus 4.50 mg/dL (2.5-4.5) 04/04/21 05:00 Magnesium 2.20 mg/dL (1.7-2.3) 04/04/21 05:00 Total Bilirubin < 0.20 mg/dL (0.1-1.2) 04/01/21 20:50 AST 14 units/L (5-40) 04/01/21 20:50 ALT 8 units/L (7-56) 04/01/21 20:50 Alkaline Phosphatase 89 units/L (35-129) 04/01/21 20:50 Total Protein 7.6 g/dL (6.3-8.2) 04/01/21 20:50 Albumin 3.7 g/dL (3.9-5) L 04/01/21 20:50 Albumin/Globulin Ratio 0.9 % 04/01/21 20:50 Lipase 67 units/L (13-60) H 04/01/21 20:50 Urine Color Yellow (Yellow) 04/01/21 Unknown Urine Turbidity Slightly-cloudy (Clear) 04/01/21 Unknown Urine pH 5.0 (5.0-7.0) 04/01/21 Unknown Ur Specific [place] 1.010 (1.003-1.030) 04/01/21 Unknown Urine Protein >500 mg/dL (Negative) 04/01/21 Unknown Urine Glucose (UA) Neg mg/dL (Negative) 04/01/21 Unknown Urine Ketones Neg mg/dL (Negative) 04/01/21 Unknown Urine Blood Neg (Negative) 04/01/21 Unknown Urine Nitrite Neg (Negative) 04/01/21 Unknown Urine Bilirubin Neg (Negative) 04/01/21 Unknown Urine Urobilinogen < 2.0 mg/dL (<2.0) 04/01/21 Unknown Ur Leukocyte Esterase Neg (Negative) 04/01/21 Unknown Urine WBC (Auto) 7.0 /HPF (0.0-6.0) H 04/01/21 Unknown Urine RBC (Auto) 1.0 /HPF (0.0-6.0) 04/01/21 Unknown U Epithel Cells (Auto) 1.0 /HPF (0-13.0) 04/01/21 Unknown Urine Mucus Few /HPF 04/01/21 Unknown Urine Creatinine 81.3 mg/dL (0.1-20.0) H 04/02/21 20:55 Coronavirus (PCR) Negative (Negative) 04/03/21 09:33 Hepatitis A IgM Ab Non-reactive (NonReactive) 04/02/21 18:18 Hep Bs Antigen Non-reactive (Negative) 04/02/21 18:18 Hep B Core IgM Ab Non-reactive (NonReactive) 04/02/21 18:18 Hepatitis C Antibody Non-reactive (NonReactive) 04/02/21 18:18 Microbiology: Microbiology 04/03/21 05:00 Stool Stool for WBCs - Final 04/03/21 05:00 Stool Cryptosporidium Exam - Final NEGATIVE 04/03/21 05:00 Stool Giardia Antigen (WM) - Final NEGATIVE Active Medications - Current Medications Current Medications: Generic Name Dose Route Start Last Admin Trade Name Freq PRN Reason Stop Dose Admin Acetaminophen 650 mg 04/02/21 01:14 Acetaminophen 325 Mg Tab PO Q4H PRN Pain MILD(1-3)/Fever >100.5/ZELAYA Albuterol 2.5 mg 04/04/21 12:00 Albuterol 2.5 Mg/3 Ml Nebu IH Q4HRT PRN Shortness Of Breath Albuterol/Ipratropium 1 ampul 04/04/21 20:00 Ipratropium/Albuterol Sulfate 3 Ml Ampul.Neb IH BIDRT MOODY Darunavir 800 mg 04/02/21 16:00 04/04/21 10:15 Darunavir 800 Mg Tab PO 800 mg QDAY MOODY Administration Famotidine 20 mg 04/02/21 10:00 04/04/21 10:14 Famotidine 20 Mg/2 Ml Inj IV 20 mg DAILY MOODY Administration Heparin Sodium (Porcine) 5,000 unit 04/02/21 06:00 04/04/21 06:35 Heparin 5,000 Unit/1 Ml Vial SUB-Q 5,000 unit Q8HR MOODY Administration Hydralazine HCl 10 mg 04/04/21 01:32 04/04/21 01:52 Hydralazine 20 Mg/1 Ml Inj IV 10 mg Q6HR PRN Administration Hypertension Hydromorphone HCl 0.5 mg 04/02/21 01:14 Hydromorphone 1 Mg/1 Ml Inj IV Q3H PRN Pain , Severe (7-10) Sodium Chloride 100 mls @ 999 mls/hr 04/02/21 17:29 Nacl 0.9% IV PRACHI PRN Hypotension Sodium Bicarbonate 150 meq/ 1,150 mls @ 125 mls/hr 04/02/21 18:30 04/04/21 10:04 Dextrose IV 125 mls/hr DIRECT MOODY Administration Sodium Chloride 100 mls @ 999 mls/hr 04/04/21 10:38 Nacl 0.9% IV PRACHI PRN Hypotension Morphine Sulfate 2 mg 04/02/21 01:14 Morphine 2 Mg/1 Ml Inj IV Q4H PRN Pain, Moderate (4-6) Ondansetron HCl 4 mg 04/02/21 01:14 Ondansetron 4 Mg/2 Ml Inj IV Q8H PRN Nausea And Vomiting Ritonavir 100 mg 04/02/21 16:00 04/04/21 10:14 Ritonavir 100 Mg Tab PO 100 mg QDAY MOODY Administration Sodium Chloride 10 ml 04/02/21 10:00 04/04/21 10:06 Sodium Chloride 0.9% 10 Ml Flush Syringe IV 10 ml BID MOODY Administration Sodium Chloride 10 ml 04/02/21 01:14 Sodium Chloride 0.9% 10 Ml Flush Syringe IV PRN PRN LINE FLUSH
[2021-04-04] MEDS ORDERED: ALBUTEROL 2.5 MG/3 ML NEBU IH PRN (12:00)
[2021-04-05 06:05] LABS: Calcium 8.2 mg/dL (8.4-10.2)
[2021-04-05] MEDS: HEPARIN 5,000 UNIT/1 ML VIAL SUB-Q SCH ×2 (07:01→21:56)
--- NOTE | 2021-04-05 07:17 | Progress Note ---
Assessment and Plan Assessment and plan: #ROMMEL superimposed on CKD stage 5 #ESRD -Creatinine 7.8 (previously 7.3) -follows with [facility] nephrology -Nephrology consulted; appreciate recs. Nephrology recommends hemodialysis; pending Vas-Cath placement. Vascular surgery consulted for Vas-Cath placement. Will occur early this week. Renally dose medications and avoid nephrotoxic meds. Monitor with daily BMP #Hyperkalemiaresolved - potassium 4.7 -In the setting of ROMMEL on CKD stage IV -Status post calcium gluconate, sodium bicarb, insulin, Kayexalate -Pending repeat BMPs #Colitis -Continue regular diet as tolerated -Possibly viral but patient is afebrile with normal white count. Has been ongoing for several weeks ( may need outpatient colonoscopy to evaluate for possible inflammatory etiology). -Pending C. difficile. Stool studies negative for Giardia or Cryptosporidium. -Continue Zofran prn -Discontinued Flagyl and Levaquin -Infectious disease consulted; appreciate recs -Continue to monitor #Human immunodeficiency virus infection - follow with [facility] dept. - CD4 count reported to be in 1100's. - Is complaint on HAART therapy:Norvir, Prezista, rilpivirine #History of CKD stage IV - baseline? -Nephrology consulted; appreciate recs #Dehydrationresolved -Status post IV fluids #Advanced care planning -Disease education conducted, care plan discussed, diagnoses discussed, prognosis discussed, and patient acknowledges understanding with care plan -Time: +30 min #Discharge planning - Patient is pending Vas-Cath placement, initiation of hemodialysis, and HD chair in outpatient setting. - Case management has been made aware. Disposition Plan: Continue medical management Total Time Spent with Patient (Minutes): 45 minutes History Interval history: No acute events overnight. Hospitalist Physical - Constitutional Vitals: Temp Pulse Resp BP Pulse Ox 98.3 F 95 H 18 143/71 95 04/05/21 06:57 04/05/21 06:57 04/05/21 06:57 04/05/21 06:57 04/05/21 06:57 General appearance: Present: no acute distress, well-nourished - EENT Eyes: Present: PERRL, EOM intact ENT: hearing intact, clear oral mucosa, dentition normal - Neck Neck: Present: supple, normal ROM - Respiratory Respiratory effort: normal Respiratory: bilateral: CTA - Cardiovascular Rhythm: regular Heart Sounds: Present: S1 & S2 - Extremities Extremities: no ischemia, pulses intact, pulses symmetrical, No edema, normal temperature, normal color, Full ROM Peripheral Pulses: within normal limits - Abdominal General gastrointestinal: soft, non-tender, non-distended, normal bowel sounds - Integumentary Integumentary: Present: clear, warm, dry - Psychiatric Psychiatric: appropriate mood/affect, intact judgment & insight, memory intact, cooperative - Neurologic Neurologic: CNII-XII intact, moves all extremities - Allied Health Allied health notes reviewed: nursing Results - Labs CBC & Chem 7: 04/04/21 05:00 04/05/21 04:07 Labs: Laboratory Last Values WBC 7.2 K/mm3 (4.5-11.0) 04/04/21 05:00 RBC 2.57 M/mm3 (3.65-5.03) L 04/04/21 05:00 Hgb 7.8 gm/dl (11.8-15.2) L 04/04/21 05:00 Hct 24.0 % (35.5-45.6) L 04/04/21 05:00 MCV 94 fl (84-94) 04/04/21 05:00 MCH 30 pg (28-32) 04/04/21 05:00 MCHC 32 % (32-34) 04/04/21 05:00 RDW 15.4 % (13.2-15.2) H 04/04/21 05:00 Plt Count 321 K/mm3 (140-440) 04/04/21 05:00 Lymph % (Auto) 44.3 % (13.4-35.0) H 04/02/21 15:48 [place] % (Auto) 13.6 % (0.0-7.3) H 04/03/21 05:27 Eos % (Auto) 4.9 % (0.0-4.3) H 04/03/21 05:27 Baso % (Auto) 1.4 % (0.0-1.8) 04/02/21 15:48 Lymph # (Auto) 3.1 K/mm3 (1.2-5.4) 04/02/21 15:48 [place] # (Auto) 0.8 K/mm3 (0.0-0.8) 04/03/21 05:27 Eos # (Auto) 0.3 K/mm3 (0.0-0.4) 04/03/21 05:27 Baso # (Auto) 0.0 K/mm3 (0.0-0.1) 04/03/21 05:27 Add Manual Diff Complete 04/04/21 05:00 Total Counted 100 04/04/21 05:00 Seg Neutrophils % Sr. Operations Manager 04/04/21 05:00 Seg Neuts % (Manual) 31.0 % (40.0-70.0) L 04/04/21 05:00 Band Neutrophils % 1.0 % 04/04/21 05:00 Lymphocytes % (Manual) 58.0 % (13.4-35.0) H 04/04/21 05:00 Reactive Lymphs % (Man) 0 % 04/04/21 05:00 Monocytes % (Manual) 7.0 % (0.0-7.3) 04/04/21 05:00 Eosinophils % (Manual) 3.0 % (0.0-4.3) 04/04/21 05:00 Basophils % (Manual) 0 % (0.0-1.8) 04/04/21 05:00 Metamyelocytes % 0 % 04/04/21 05:00 Myelocytes % 0 % 04/04/21 05:00 Promyelocytes % 0 % 04/04/21 05:00 Blast Cells % 0 % 04/04/21 05:00 Nucleated RBC % Not Reportable 04/04/21 05:00 Seg Neutrophils # 2.0 K/mm3 (1.8-7.7) 04/03/21 05:27 Seg Neutrophils # Man 2.2 K/mm3 (1.8-7.7) 04/04/21 05:00 Band Neutrophils # 0.1 K/mm3 04/04/21 05:00 Lymphocytes # (Manual) 4.2 K/mm3 (1.2-5.4) 04/04/21 05:00 Abs React Lymphs (Man) 0.0 K/mm3 04/04/21 05:00 Monocytes # (Manual) 0.5 K/mm3 (0.0-0.8) 04/04/21 05:00 Eosinophils # (Manual) 0.2 K/mm3 (0.0-0.4) 04/04/21 05:00 Basophils # (Manual) 0.0 K/mm3 (0.0-0.1) 04/04/21 05:00 Metamyelocytes # 0.0 K/mm3 04/04/21 05:00 Myelocytes # 0.0 K/mm3 04/04/21 05:00 Promyelocytes # 0.0 K/mm3 04/04/21 05:00 Blast Cells # 0.0 K/mm3 04/04/21 05:00 WBC Morphology Not Reportable 04/04/21 05:00 Hypersegmented Neuts Not Reportable 04/04/21 05:00 Hyposegmented Neuts Not Reportable 04/04/21 05:00 Hypogranular Neuts Not Reportable 04/04/21 05:00 Smudge Cells Not Reportable 04/04/21 05:00 Toxic Granulation Not Reportable 04/04/21 05:00 Toxic Vacuolation Not Reportable 04/04/21 05:00 Dohle Bodies Not Reportable 04/04/21 05:00 Pelger-Huet Anomaly Not Reportable 04/04/21 05:00 Davion Rods Not Reportable 04/04/21 05:00 Platelet Estimate Consistent w auto 04/04/21 05:00 Clumped Platelets Not Reportable 04/04/21 05:00 Plt Clumps, EDTA Not Reportable 04/04/21 05:00 Large Platelets Not Reportable 04/04/21 05:00 Giant Platelets Not Reportable 04/04/21 05:00 Platelet Satelliting Not Reportable 04/04/21 05:00 Plt Morphology Comment Not Reportable 04/04/21 05:00 RBC Morphology Not Reportable 04/04/21 05:00 Dimorphic RBCs Not Reportable 04/04/21 05:00 Polychromasia Not Reportable 04/04/21 05:00 Hypochromasia Not Reportable 04/04/21 05:00 Poikilocytosis Not Reportable 04/04/21 05:00 Anisocytosis 1+ 04/04/21 05:00 Microcytosis Not Reportable 04/04/21 05:00 Macrocytosis Not Reportable 04/04/21 05:00 Spherocytes Not Reportable 04/04/21 05:00 Pappenheimer Bodies Not Reportable 04/04/21 05:00 Sickle Cells Not Reportable 04/04/21 05:00 Target Cells Not Reportable 04/04/21 05:00 Tear Drop Cells Not Reportable 04/04/21 05:00 Ovalocytes Not Reportable 04/04/21 05:00 Helmet Cells Not Reportable 04/04/21 05:00 [place] Bodies Not Reportable 04/04/21 05:00 [place] Rings Not Reportable 04/04/21 05:00 [place] Cells Not Reportable 04/04/21 05:00 Bite Cells Not Reportable 04/04/21 05:00 Crenated Cell Not Reportable 04/04/21 05:00 Elliptocytes Not Reportable 04/04/21 05:00 Acanthocytes (Spur) Not Reportable 04/04/21 05:00 Rouleaux Not Reportable 04/04/21 05:00 Hemoglobin C Crystals Not Reportable 04/04/21 05:00 Schistocytes Not Reportable 04/04/21 05:00 Malaria parasites Not Reportable 04/04/21 05:00 Enrique Bodies Not Reportable 04/04/21 05:00 Hem Pathologist Commnt No 04/04/21 05:00 Sodium 143 mmol/L (137-145) 04/05/21 04:07 Potassium 4.7 mmol/L (3.6-5.0) 04/05/21 04:07 Chloride 107.0 mmol/L (98-107) 04/05/21 04:07 Carbon Dioxide 22 mmol/L (22-30) D 04/05/21 04:07 Anion Gap 19 mmol/L 04/05/21 04:07 BUN 39 mg/dL (9-20) H 04/05/21 04:07 Creatinine 7.6 mg/dL (0.8-1.3) H 04/05/21 04:07 Estimated GFR 10 ml/min 04/05/21 04:07 BUN/Creatinine Ratio 5 % 04/05/21 04:07 Glucose 93 mg/dL (75-100) 04/05/21 04:07 POC Glucose 108 mg/dL (70-105) H 04/03/21 17:28 Calcium 8.2 mg/dL (8.4-10.2) L 04/05/21 04:07 Phosphorus 4.50 mg/dL (2.5-4.5) 04/04/21 05:00 Magnesium 2.20 mg/dL (1.7-2.3) 04/04/21 05:00 Total Bilirubin < 0.20 mg/dL (0.1-1.2) 04/01/21 20:50 AST 14 units/L (5-40) 04/01/21 20:50 ALT 8 units/L (7-56) 04/01/21 20:50 Alkaline Phosphatase 89 units/L (35-129) 04/01/21 20:50 Total Protein 7.6 g/dL (6.3-8.2) 04/01/21 20:50 Albumin 3.7 g/dL (3.9-5) L 04/01/21 20:50 Albumin/Globulin Ratio 0.9 % 04/01/21 20:50 Lipase 67 units/L (13-60) H 04/01/21 20:50 PTH Intact 319.5 pg/mL (15-65) H 04/04/21 Unknown Urine Color Yellow (Yellow) 04/01/21 Unknown Urine Turbidity Slightly-cloudy (Clear) 04/01/21 Unknown Urine pH 5.0 (5.0-7.0) 04/01/21 Unknown Ur Specific [place] 1.010 (1.003-1.030) 04/01/21 Unknown Urine Protein >500 mg/dL (Negative) 04/01/21 Unknown Urine Glucose (UA) Neg mg/dL (Negative) 04/01/21 Unknown Urine Ketones Neg mg/dL (Negative) 04/01/21 Unknown Urine Blood Neg (Negative) 04/01/21 Unknown Urine Nitrite Neg (Negative) 04/01/21 Unknown Urine Bilirubin Neg (Negative) 04/01/21 Unknown Urine Urobilinogen < 2.0 mg/dL (<2.0) 04/01/21 Unknown Ur Leukocyte Esterase Neg (Negative) 04/01/21 Unknown Urine WBC (Auto) 7.0 /HPF (0.0-6.0) H 04/01/21 Unknown Urine RBC (Auto) 1.0 /HPF (0.0-6.0) 04/01/21 Unknown U Epithel Cells (Auto) 1.0 /HPF (0-13.0) 04/01/21 Unknown Urine Mucus Few /HPF 04/01/21 Unknown Urine Creatinine 81.3 mg/dL (0.1-20.0) H 04/02/21 20:55 Coronavirus (PCR) Negative (Negative) 04/03/21 09:33 Hepatitis A IgM Ab Non-reactive (NonReactive) 04/02/21 18:18 Hep Bs Antigen Non-reactive (Negative) 04/02/21 18:18 Hep B Core IgM Ab Non-reactive (NonReactive) 04/02/21 18:18 Hepatitis C Antibody Non-reactive (NonReactive) 04/02/21 18:18 Microbiology: Microbiology 04/03/21 05:00 Stool Stool Culture - Preliminary 04/03/21 05:00 Stool Stool for WBCs - Final 04/03/21 05:00 Stool Cryptosporidium Exam - Final NEGATIVE 04/03/21 05:00 Stool Giardia Antigen (WM) - Final NEGATIVE [place]/IV: Voiding Method Toilet Active Medications - Current Medications Current Medications: Generic Name Dose Route Start Last Admin Trade Name Freq PRN Reason Stop Dose Admin Acetaminophen 650 mg 04/02/21 01:14 Acetaminophen 325 Mg Tab PO Q4H PRN Pain MILD(1-3)/Fever >100.5/ZELAYA Albuterol 2.5 mg 04/04/21 12:00 Albuterol 2.5 Mg/3 Ml Nebu IH Q4HRT PRN Shortness Of Breath Albuterol/Ipratropium 1 ampul 04/04/21 20:00 04/04/21 21:10 Ipratropium/Albuterol Sulfate 3 Ml Ampul.Neb IH 1 ampul BIDRT MOODY Administration Darunavir 800 mg 04/02/21 16:00 04/04/21 10:15 Darunavir 800 Mg Tab PO 800 mg QDAY MOODY Administration Famotidine 20 mg 04/02/21 10:00 04/04/21 10:14 Famotidine 20 Mg/2 Ml Inj IV 20 mg DAILY MOODY Administration Heparin Sodium (Porcine) 5,000 unit 04/02/21 06:00 04/05/21 07:01 Heparin 5,000 Unit/1 Ml Vial SUB-Q Not Given Q8HR MOODY Hydralazine HCl 10 mg 04/04/21 01:32 04/04/21 01:52 Hydralazine 20 Mg/1 Ml Inj IV 10 mg Q6HR PRN Administration Hypertension Hydromorphone HCl 0.5 mg 04/02/21 01:14 Hydromorphone 1 Mg/1 Ml Inj IV Q3H PRN Pain , Severe (7-10) Sodium Chloride 100 mls @ 999 mls/hr 04/02/21 17:29 Nacl 0.9% IV PRACHI PRN Hypotension Sodium Bicarbonate 150 meq/ 1,150 mls @ 125 mls/hr 04/02/21 18:30 04/04/21 22:16 Dextrose IV 125 mls/hr DIRECT MOODY Administration Sodium Chloride 100 mls @ 999 mls/hr 04/04/21 10:38 Nacl 0.9% IV PRACHI PRN Hypotension Morphine Sulfate 2 mg 04/02/21 01:14 Morphine 2 Mg/1 Ml Inj IV Q4H PRN Pain, Moderate (4-6) Ondansetron HCl 4 mg 04/02/21 01:14 Ondansetron 4 Mg/2 Ml Inj IV Q8H PRN Nausea And Vomiting Ritonavir 100 mg 04/02/21 16:00 04/04/21 10:14 Ritonavir 100 Mg Tab PO 100 mg QDAY MOODY Administration Sodium Chloride 10 ml 04/02/21 10:00 04/04/21 22:17 Sodium Chloride 0.9% 10 Ml Flush Syringe IV 10 ml BID MOODY Administration Sodium Chloride 10 ml 04/02/21 01:14 Sodium Chloride 0.9% 10 Ml Flush Syringe IV PRN PRN LINE FLUSH
[2021-04-05] MEDS: IPRATROPIUM/ALBUTEROL SULFATE 3 ML AMPUL.NEB IH SCH ×2 (09:09→20:28)
[2021-04-05] MEDS ORDERED: HEPARIN 10,000 UNITS/10 ML VIAL ONE (09:26)
[2021-04-05] MEDS ORDERED: HEPARIN/NS 5000 UNIT/500ML 500 ML IR ONE (09:26)
[2021-04-05] MEDS ORDERED: SODIUM CHLORIDE 0.9% 250ML 250 ML ONE (09:27)
[2021-04-05] MEDS ORDERED: LIDOCAINE 1%/EPINEPHRINE 1:100,000 VIAL (20 ML) INFILTRATI ONE (09:27)
[2021-04-05] MEDS: MIDAZOLAM 2 MG/2 ML INJ ONE ×2 (09:50→10:04)
[2021-04-05] MEDS: fentaNYL 100 MCG/2 ML INJ ONE ×3 (09:50→10:04)
[2021-04-05] MEDS ORDERED: CLINDAMYCIN 600 MG/50 mL 600 MG/50 ML BAG IV ONE (09:50)
--- NOTE | 2021-04-05 09:58 | Progress Note ---
Assessment and Plan Impression: * End stage renal disease * Hyperkalemia * Metabolic acidosis * HIV Plan: * Permcath insertion today * Hemodialysis to follow - first treatment today * Will plan for HD again tomorrow * Will check iron stores * Epogen TIW prn * Renal diet * Needs outpatient clinic arrangement--[facility] or [facility] Subjective Date of service: 04/05/21 Principal diagnosis: siva, hyperkalemia Interval history: Chart, vitals, labs reviewed. Objective - Exam Narrative Exam: Patient is off the floor at time of visit. - Vital Signs Vital signs: Vital Signs - 12hr 04/05/21 04/05/21 01:00 06:57 Temperature 98.3 F Pulse Rate 95 H Respiratory 17 18 Rate Blood Pressure 143/71 [Left] O2 Sat by Pulse 97 95 Oximetry - Lab 04/04/21 05:00 04/05/21 04:07 Most recent lab results Calcium 8.2 mg/dL (8.4-10.2) L 04/05/21 04:07 Phosphorus 4.50 mg/dL (2.5-4.5) 04/04/21 05:00 Magnesium 2.20 mg/dL (1.7-2.3) 04/04/21 05:00 Urine Creatinine 81.3 mg/dL (0.1-20.0) H 04/02/21 20:55 Medications & Allergies - Medications Allergies/Adverse Reactions: Allergies Penicillins Allergy (Verified 04/05/21 15:14) Anaphylaxis feels like body shuts down. Active Medications: Generic Name Dose Route Start Last Admin Trade Name Freq PRN Reason Stop Dose Admin Acetaminophen 650 mg 04/02/21 01:14 Acetaminophen 325 Mg Tab PO Q4H PRN Pain MILD(1-3)/Fever >100.5/ZELAYA Albuterol 2.5 mg 04/04/21 12:00 Albuterol 2.5 Mg/3 Ml Nebu IH Q4HRT PRN Shortness Of Breath Albuterol/Ipratropium 1 ampul 04/04/21 20:00 04/05/21 09:09 Ipratropium/Albuterol Sulfate 3 Ml Ampul.Neb IH Not Given BIDRT MOODY Darunavir 800 mg 04/02/21 16:00 04/04/21 10:15 Darunavir 800 Mg Tab PO 800 mg QDAY MOODY Administration Famotidine 20 mg 04/02/21 10:00 04/04/21 10:14 Famotidine 20 Mg/2 Ml Inj IV 20 mg DAILY MOODY Administration Heparin Sodium (Porcine) 5,000 unit 04/02/21 06:00 04/05/21 07:01 Heparin 5,000 Unit/1 Ml Vial SUB-Q Not Given Q8HR MOODY Hydralazine HCl 10 mg 04/04/21 01:32 04/04/21 01:52 Hydralazine 20 Mg/1 Ml Inj IV 10 mg Q6HR PRN Administration Hypertension Hydromorphone HCl 0.5 mg 04/02/21 01:14 Hydromorphone 1 Mg/1 Ml Inj IV Q3H PRN Pain , Severe (7-10) Sodium Chloride 100 mls @ 999 mls/hr 04/02/21 17:29 Nacl 0.9% IV PRACHI PRN Hypotension Sodium Bicarbonate 150 meq/ 1,150 mls @ 125 mls/hr 04/02/21 18:30 04/04/21 22:16 Dextrose IV 125 mls/hr DIRECT MOODY Administration Sodium Chloride 100 mls @ 999 mls/hr 04/04/21 10:38 Nacl 0.9% IV PRACHI PRN Hypotension Morphine Sulfate 2 mg 04/02/21 01:14 Morphine 2 Mg/1 Ml Inj IV Q4H PRN Pain, Moderate (4-6) Ondansetron HCl 4 mg 04/02/21 01:14 Ondansetron 4 Mg/2 Ml Inj IV Q8H PRN Nausea And Vomiting Ritonavir 100 mg 04/02/21 16:00 04/04/21 10:14 Ritonavir 100 Mg Tab PO 100 mg QDAY MOODY Administration Sodium Chloride 10 ml 04/02/21 10:00 04/04/21 22:17 Sodium Chloride 0.9% 10 Ml Flush Syringe IV 10 ml BID MOODY Administration Sodium Chloride 10 ml 04/02/21 01:14 Sodium Chloride 0.9% 10 Ml Flush Syringe IV PRN PRN LINE FLUSH
[2021-04-05] MEDS ORDERED: MIDAZOLAM 2 MG/2 ML INJ ONE (10:01)
[2021-04-05] MEDS ORDERED: fentaNYL 100 MCG/2 ML INJ ONE (10:02)
--- NOTE | 2021-04-05 10:34 | Operative Report ---
Operative Report Operative Report: EXAM: 1. Ultrasound-guided puncture of the right internal jugular vein 2. Fluoroscopic-guided placement of a right internal jugular tunneled cuffed hemodialysis catheter. DATE: 04/05/2021 INDICATION: End-stage renal disease requiring hemodialysis access. MEDICATIONS: Please see nursing report for full details. DEVICES: 23 cm tip to cuff 15 Fr dual lumen hemodialysis catheter CUT OFF SAW OPERATOR: TYSHAWN ARTHUR MD CONTRAST: None PROCEDURE: The risks, benefits, and alternatives were discussed and informed consent was obtained. The patient was transported to the angiography suite in satisfactory/stable condition and was transported onto the angiography table. The patient's right internal jugular vein was assessed with ultrasound and determined to be patent prior to procedure. The patient was prepped and draped in a sterile fashion. The puncture site was anesthetized. Under sonographic guidance, the right internal jugular vein was punctured with a 21-gauge micropuncture needle and a 0.018 inch wire was advanced into the inferior vena cava. The micropuncture needle was exchanged for a transitional dilator and the wire was retracted into the right atrium to karl intravascular distance. The wire and inner dilator were removed. 0.035 inch wire was advanced through the transitional dilator into the inferior vena cava. A suitable exit site was identified on the patient's chest inferior and lateral to the venotomy. The site was anesthetized with local anesthetic and the track was anesthetized. Dermatotomy was made. The PermCath was attached to the tunneling device and tunneled between the dermatotomy to the venotomy. Over the 0.035 inch wire, serial dilatation was performed with ultimate placement of a peel-away sheath. The catheter was advanced through the peel- away sheath after the wire was removed and positioned centrally under fluoroscopic guidance. The peel-away sheath was removed. 4-0 Vicryl suture was used to close the venotomy and Dermabond was then applied. 2-0 Ethilon suture was used to secure the catheter at the dermatotomy. The catheter was charged with heparin 1000 units/mL of space. Sterile dressing and Biopatch applied. The patient was transferred from the angiography suite back to the floor in stable condition. FINDINGS: 1. Excellent flow was obtained through the dialysis catheter with 20 mL syringes. 2. The catheter tip is in the right atrium. IMPRESSION: 1. Successful ultrasound and fluoroscopically guided placement of a right internal jugular tunneled cuffed hemodialysis catheter.
[2021-04-05] MEDS: EPOETIN ALFA-EPBX 10,000 UNIT/1 ML VIAL IV PRN (14:50)
--- NOTE | 2021-04-05 15:07 | Progress Note ---
Assessment and Plan Cultures: 04/03/2021 stool culture: In process, stool WBC, positive for few PMNs, Giardia and cryptosporidium: Negative A/P: 40-year-old male with HIV, CKD stage IV was admitted to the hospital with a 10- day history of lower abdominal pain and some loose stools. CT abdomen and pelvis showed evidence of possible colitis: #Abdominal pain, loose stools, colitis: Infectious v/s inflammatory, likely latter. No fever, no leukocytosis. Given his normal CD4 count, very low suspicion for opportunistic infection. C.difficile less likely, no recent abx exposure, normal WBC. Stool WBC, positive for few PMNs. Giardia and cryptosporidium: Negative #HIV: follows up at [facility], undetectable viral load and CD4 count is around 1100, ART includes Norvir, Prezista, rilpivirine. He used to be on Complera which was later discontinued due to his worsening renal function. #ROMMEL on CKD stage IV: Nephrology on board. Now on dialysis. Recs: -continue ART regimen based on formulary per d/w pharmacy. Patient unable to bring his own home meds -For some reason, C. difficile was not sent -Stool WBC positive for few PMNs, suggesting colitis. Continue supportive care -Might need outpatient GI evaluation and colonoscopy Cheryl Pickering MD, FACP, [facility] ([facility] O: [phone] F: [phone] Subjective Date of service: 04/05/21 Principal diagnosis: rommel, hyperkalemia Interval history: Seen at dialysis. Denies any complaints. Denies abdominal pain and diarrhea. Seen at dialysis, got new access placed today. Objective - Exam Narrative Exam: Physical Exam: Constitutional: Alert, cooperative. No acute distress Head, Ears, Nose: Normocephalic, atraumatic. External ears, nose normal Eyes: Conjunctivae/corneas clear. No icterus. No ptosis. Neck: Supple, no meningeal signs Cardiovascular: S1, S2 + Respiratory: Good air entry, clear to auscultation bilaterally GI: Soft, non-tender; bowel sounds normal. No peritoneal signs Musculoskeletal: No pedal edema, no cyanosis. Skin: No rash or abscess Hem/Lymphatic: No palpable cervical or supraclavicular nodes. No lymphangitis Psych: Mood ok. Affect normal Neurological: Awake, alert, oriented. No gross abnormality - Constitutional Vitals: Vital Signs Temp Pulse Resp BP Pulse Ox 98.3 F 95 H 18 143/71 95 04/05/21 06:57 04/05/21 06:57 04/05/21 06:57 04/05/21 06:57 04/05/21 06:57 Temperature -Last 24 Hours Temperature 98.3 F Temperature 98.9 F - Labs CBC & Chem 7: 04/04/21 05:00 04/05/21 04:07 Labs: Abnormal lab results 04/04/21 04/05/21 Range/Units Unknown 04:07 BUN 39 H (9-20) mg/dL Creatinine 7.6 H (0.8-1.3) mg/dL Calcium 8.2 L (8.4-10.2) mg/dL PTH Intact 319.5 H (15-65) pg/mL
[2021-04-06 06:11] LABS: Calcium 8.4 mg/dL (8.4-10.2)
[2021-04-06] MEDS: HEPARIN 5,000 UNIT/1 ML VIAL SUB-Q SCH ×4 (07:10→22:22)
[2021-04-06] MEDS: IPRATROPIUM/ALBUTEROL SULFATE 3 ML AMPUL.NEB IH SCH ×2 (08:15→21:02)
[2021-04-06] MEDS ORDERED: SODIUM CHLORIDE 0.9% 100 ML IV PRN (09:00)
[2021-04-06] MEDS: DARUNAVIR 800 MG TAB PO SCH ×2 (09:07→11:58)
[2021-04-06] MEDS: FAMOTIDINE 20 MG/2 ML INJ IV SCH ×2 (09:07→11:58)
[2021-04-06] MEDS: RITONAVIR 100 MG TAB PO SCH ×2 (09:07→11:58)
[2021-04-06] MEDS: DOLUTEGRAVIR 50 MG TAB PO SCH ×2 (09:08→11:58)
--- NOTE | 2021-04-06 09:19 | Electrocardiograph Report ---
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
--- NOTE | 2021-04-06 09:28 | Progress Note ---
Assessment and Plan Impression: * End stage renal disease --Permcath insertion - Apr 05 --HD initiation - Apr 05 * Hyperkalemia * Metabolic acidosis * HIV Plan: * Patient is s/p permcaht insertion and first HD treatment yesterday * Hemodialysis to follow -second treatment today * Plan for MWF schedule moving forward - UF as tolerated * Epogen TIW prn * Iron stores ordered * Renal diet * Needs outpatient clinic arrangement--[facility] Subjective Date of service: 04/06/21 Principal diagnosis: siva, hyperkalemia Interval history: Patient seen on dialysis. He has no complaints. Objective - Vital Signs Vital signs: Vital Signs - 12hr 04/05/21 04/06/21 04/06/21 23:59 01:00 04:17 Temperature 99.0 F 98.4 F Pulse Rate 90 82 Respiratory 18 18 18 Rate Blood Pressure 136/75 154/80 O2 Sat by Pulse 95 97 97 Oximetry 04/06/21 08:17 Temperature 97.9 F Pulse Rate 95 H Respiratory 16 Rate Blood Pressure 144/76 O2 Sat by Pulse 96 Oximetry - General Appearance General appearance: well-developed, well-nourished EENT: ATNC Respiratory: Present: Clear to Ascultation Cardiology: regular, S1S2 Gastrointestinal: normal, no tenderness, no distended Integumentary: warm and dry Psychiatric: cooperative - Lab 04/04/21 05:00 04/06/21 05:25 Most recent lab results Calcium 8.4 mg/dL (8.4-10.2) 04/06/21 05:25 Phosphorus 4.50 mg/dL (2.5-4.5) 04/04/21 05:00 Magnesium 2.20 mg/dL (1.7-2.3) 04/04/21 05:00 Urine Creatinine 81.3 mg/dL (0.1-20.0) H 04/02/21 20:55 Medications & Allergies - Medications Allergies/Adverse Reactions: Allergies Penicillins Allergy (Verified 04/05/21 15:14) Anaphylaxis feels like body shuts down. Active Medications: Generic Name Dose Route Start Last Admin Trade Name Freq PRN Reason Stop Dose Admin Acetaminophen 650 mg 04/02/21 01:14 Acetaminophen 325 Mg Tab PO Q4H PRN Pain MILD(1-3)/Fever >100.5/ZELAYA Albuterol 2.5 mg 04/04/21 12:00 Albuterol 2.5 Mg/3 Ml Nebu IH Q4HRT PRN Shortness Of Breath Albuterol/Ipratropium 1 ampul 04/04/21 20:00 04/06/21 08:15 Ipratropium/Albuterol Sulfate 3 Ml Ampul.Neb IH 1 ampul BIDRT MOODY Administration Darunavir 800 mg 04/02/21 16:00 04/06/21 09:07 Darunavir 800 Mg Tab PO Not Given QDAY MOODY Famotidine 20 mg 04/02/21 10:00 04/06/21 09:07 Famotidine 20 Mg/2 Ml Inj IV Not Given DAILY PENDING SALE TO [facility] Heparin Sodium (Porcine) 5,000 unit 04/02/21 06:00 04/06/21 09:08 Heparin 5,000 Unit/1 Ml Vial SUB-Q Not Given Q8HR PENDING SALE TO [facility] Hydralazine HCl 10 mg 04/04/21 01:32 04/04/21 01:52 Hydralazine 20 Mg/1 Ml Inj IV 10 mg Q6HR PRN Administration Hypertension Hydromorphone HCl 0.5 mg 04/02/21 01:14 Hydromorphone 1 Mg/1 Ml Inj IV Q3H PRN Pain , Severe (7-10) Sodium Bicarbonate 150 meq/ 1,150 mls @ 125 mls/hr 04/02/21 18:30 04/04/21 22:16 Dextrose IV 125 mls/hr DIRECT MOODY Administration Sodium Chloride 100 mls @ 999 mls/hr 04/06/21 09:00 Nacl 0.9% IV PRACHI PRN Hypotension Morphine Sulfate 2 mg 04/02/21 01:14 Morphine 2 Mg/1 Ml Inj IV Q4H PRN Pain, Moderate (4-6) Ondansetron HCl 4 mg 04/02/21 01:14 Ondansetron 4 Mg/2 Ml Inj IV Q8H PRN Nausea And Vomiting Ritonavir 100 mg 04/02/21 16:00 04/06/21 09:07 Ritonavir 100 Mg Tab PO Not Given QDAY PENDING SALE TO [facility] Sodium Chloride 10 ml 04/02/21 10:00 04/06/21 09:07 Sodium Chloride 0.9% 10 Ml Flush Syringe IV Not Given BID MOODY Sodium Chloride 10 ml 04/02/21 01:14 Sodium Chloride 0.9% 10 Ml Flush Syringe IV PRN PRN LINE FLUSH
[2021-04-06] MEDS: EPOETIN ALFA-EPBX 10,000 UNIT/1 ML VIAL IV PRN (10:16)
[2021-04-06 12:49] LABS: % Iron Saturation 17.52 %
--- NOTE | 2021-04-06 15:05 | Progress Note ---
Assessment and Plan Cultures: 04/03/2021 stool culture: In process, stool WBC, positive for few PMNs, Giardia and cryptosporidium: Negative A/P: 40-year-old male with HIV, CKD stage IV was admitted to the hospital with a 10- day history of lower abdominal pain and some loose stools. CT abdomen and pelvis showed evidence of possible colitis: #Abdominal pain, loose stools, colitis: Infectious v/s inflammatory, ?more likely latter. No fever, no leukocytosis. Given his normal CD4 count, very low suspicion for opportunistic infection. C.difficile less likely, no recent abx exposure, normal WBC. Stool WBC, positive for few PMNs. Giardia and cryptosporidium: Negative. Symptoms resolved. #HIV: follows up at [facility], undetectable viral load and CD4 count is around 1100, ART includes Norvir, Prezista, rilpivirine. He used to be on Complera which was later discontinued due to his worsening renal function. #ROMMEL on CKD stage IV: Nephrology on board. Now on dialysis. Recs: -continue ART regimen based on formulary per d/w pharmacy. Patient unable to bring his own home meds -For some reason, C. difficile was not sent -Stool WBC positive for few PMNs, suggesting colitis. Continue supportive care -If GI symptoms recur, he should consider outpatient GI evaluation and colonoscopy Will sign off. Please call with questions Cheryl Pickering MD, FACP[facility] O: [phone] F: [phone] Subjective Date of service: 04/06/21 Principal diagnosis: rommel, hyperkalemia Interval history: No fever. Had another dialysis session today. Feels back to normal. Denies any complaints today. Objective - Exam Narrative Exam: Physical Exam: Constitutional: Alert, cooperative. No acute distress Head, Ears, Nose: Normocephalic, atraumatic. External ears, nose normal Eyes: Conjunctivae/corneas clear. No icterus. No ptosis. Neck: Supple, no meningeal signs Cardiovascular: S1, S2 + Respiratory: Good air entry, clear to auscultation bilaterally GI: Soft, non-tender; bowel sounds normal. No peritoneal signs Musculoskeletal: No pedal edema, no cyanosis. PermCath + Skin: No rash or abscess Hem/Lymphatic: No palpable cervical or supraclavicular nodes. No lymphangitis Psych: Mood ok. Affect normal Neurological: Awake, alert, oriented. No gross abnormality - Constitutional Vitals: Vital Signs Temp Pulse Resp BP Pulse Ox 98.4 F 89 18 162/85 97 04/06/21 09:00 04/06/21 11:00 04/06/21 11:19 04/06/21 11:00 04/06/21 11:19 Temperature -Last 24 Hours Temperature 98.4 F Temperature 97.9 F Temperature 98.4 F Temperature 99.0 F Temperature 99.2 F Temperature 98.0 F - Labs CBC & Chem 7: 04/04/21 05:00 04/06/21 05:25 Labs: Abnormal lab results 04/06/21 04/06/21 Range/Units 05:25 11:45 Potassium 5.1 H (3.6-5.0) mmol/L BUN 25 H (9-20) mg/dL Creatinine 5.5 H (0.8-1.3) mg/dL Iron 41 L (49-181) ug/dL TIBC 234 L (250-450) mcg/dL
[2021-04-07] MEDS: HEPARIN 5,000 UNIT/1 ML VIAL SUB-Q SCH ×3 (05:17→22:07)
[2021-04-07 06:00] LABS: Calcium 8.5 mg/dL (8.4-10.2)
--- NOTE | 2021-04-07 07:26 | Progress Note ---
Assessment and Plan #ROMMEL superimposed on CKD stage 5 #ESRD needing hemodialysis -Creatinine 7.8 (previously 7.3) -follows with [facility] nephrology -Nephrology consulted; appreciate recs. Nephrology recommends hemodialysis; pending Vas-Cath placement. Vascular surgery consulted for Vas-Cath placement. Will occur early this week. Renally dose medications and avoid nephrotoxic meds. Monitor with daily BMP #Hyperkalemiaresolved - potassium 4.7 -In the setting of ROMMEL on CKD stage IV -Status post calcium gluconate, sodium bicarb, insulin, Kayexalate -Pending repeat BMPs #Colitis -Continue regular diet as tolerated -Possibly viral but patient is afebrile with normal white count. Has been ongoing for several weeks ( may need outpatient colonoscopy to evaluate for possible inflammatory etiology). -Pending C. difficile. Stool studies negative for Giardia or Cryptosporidium. -Continue Zofran prn -Discontinued Flagyl and Levaquin -Infectious disease consulted; appreciate recs -Continue to monitor #Human immunodeficiency virus infection - follow with [facility] dept. - CD4 count reported to be in 1100's. - Is complaint on HAART therapy:Norvir, Prezista, rilpivirine #History of CKD stage IV - baseline? -Nephrology consulted; appreciate recs #Dehydrationresolved -Status post IV fluids #Advanced care planning -Disease education conducted, care plan discussed, diagnoses discussed, prognosis discussed, and patient acknowledges understanding with care plan -Time: +30 min #Discharge planning - Patient is pending Vas-Cath placement, initiation of hemodialysis, and HD chair in outpatient setting. - Case management has been made aware. 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 who is presenting with abdominal pain and diarrhea. Patient states for the last week he has had crampy abdominal pain and loose stools. Denies any blood in his stools. Also has some nausea denies fevers cough cold congestion. Patient states he feels fatigued. Abdominal cramps are estimated at 5 out of 10 in severity and occur intermittently. In the emergency room patient is found to have potassium of 6.8, BUN of fifty- three and creatinine of 7.2, bicarb of fourteen. CT is consistent with colitis. pt was started on metronidazole , Levaquin. Patient was given some Bentyl and IV fluids. Patient likely has had some worsening of his renal function secondary to some dehydration from the diarrhea and his potassium is elevated. Patient was given insulin 7 units IV x1 dose D50, calcium gluconate 1 g. Kayexalate and sodium bicarb to get his potassium to come down. Patient will be admitted to the hospitalist service. Nephrology has been consulted. 04/06/2021 Patient had Vas-Cath Patient needs hemodialysis chair Patient had hemodialysis Objective - Constitutional Vitals: Vital Signs - 12hr 04/06/21 04/06/21 04/06/21 19:47 21:04 23:43 Temperature 98.9 F 98.1 F Pulse Rate 90 86 Pulse Rate [ 91 H Bilateral Throughout] Respiratory 18 18 Rate Respiratory 20 Rate [Bilateral Throughout] Blood Pressure 152/76 153/71 O2 Sat by Pulse 98 92 Oximetry 04/07/21 04/07/21 00:15 04:40 Temperature 98.2 F Pulse Rate 84 Pulse Rate [ Bilateral Throughout] Respiratory 18 18 Rate Respiratory Rate [Bilateral Throughout] Blood Pressure 156/71 O2 Sat by Pulse 98 93 Oximetry General appearance: Present: no acute distress, well-nourished - EENT Eyes: PERRL, EOM intact ENT: hearing intact, clear oral mucosa Ears: bilateral: normal - Neck Neck: supple, normal ROM - Respiratory Respiratory effort: normal Respiratory: bilateral: CTA - Breasts Breasts: normal - Cardiovascular Heart rate: 78 Rhythm: regular Heart Sounds: Present: S1 & S2. Absent: gallop, rub Extremities: no ischemia, pulses intact, No edema, normal color, Full ROM - Gastrointestinal General gastrointestinal: Present: soft, non-tender, non-distended, normal bowel sounds - Genitourinary Male genitourinary: normal - Integumentary Integumentary: clear, warm, dry - Musculoskeletal Musculoskeletal: 1, strength equal bilaterally - Neurologic Neurologic: moves all extremities - Psychiatric Psychiatric: memory intact, appropriate mood/affect, intact judgment & insight - Labs CBC & Chem 7: 04/04/21 05:00 04/07/21 04:42 Labs: Abnormal lab results 04/06/21 04/07/21 Range/Units 11:45 04:42 BUN 21 H (9-20) mg/dL Creatinine 5.0 H (0.8-1.3) mg/dL Iron 41 L (49-181) ug/dL TIBC 234 L (250-450) mcg/dL
[2021-04-07] MEDS: IPRATROPIUM/ALBUTEROL SULFATE 3 ML AMPUL.NEB IH SCH ×2 (08:02→21:07)
--- NOTE | 2021-04-07 09:14 | Progress Note ---
Assessment and Plan Impression: * End stage renal disease --Permcath insertion - Apr 05 --HD initiation - Apr 05 * Hyperkalemia * Metabolic acidosis * HIV Plan: * Patient is s/p HD on Monday and Monday * Hemodialysis today - continue MWF schedule moving forward * Epogen TIW prn * Start Ferrlecit IV daily x 5 * Renal diet * Needs outpatient clinic arrangement--[facility]--prior to discharge Subjective Date of service: 04/07/21 Principal diagnosis: siva, hyperkalemia Interval history: Patient has no complaint today Objective - Vital Signs Vital signs: Vital Signs - 12hr 04/06/21 04/07/21 04/07/21 23:43 00:15 04:40 Temperature 98.1 F 98.2 F Pulse Rate 86 84 Pulse Rate [ Bilateral Throughout] Respiratory 18 18 18 Rate Respiratory Rate [Bilateral Throughout] Blood Pressure 153/71 156/71 O2 Sat by Pulse 92 98 93 Oximetry 04/07/21 04/07/21 08:02 08:25 Temperature Pulse Rate Pulse Rate [ 92 H Bilateral Throughout] Respiratory Rate Respiratory 18 Rate [Bilateral Throughout] Blood Pressure O2 Sat by Pulse 98 Oximetry - General Appearance General appearance: well-developed, well-nourished EENT: ATNC Respiratory: Present: Clear to Ascultation Cardiology: regular, S1S2 Gastrointestinal: normal, no tenderness, no distended Integumentary: no rash, warm and dry Psychiatric: cooperative - Lab 04/04/21 05:00 04/07/21 04:42 Most recent lab results Calcium 8.5 mg/dL (8.4-10.2) 04/07/21 04:42 Phosphorus 4.50 mg/dL (2.5-4.5) 04/04/21 05:00 Magnesium 2.20 mg/dL (1.7-2.3) 04/04/21 05:00 Urine Creatinine 81.3 mg/dL (0.1-20.0) H 04/02/21 20:55 Medications & Allergies - Medications Allergies/Adverse Reactions: Allergies Penicillins Allergy (Verified 04/05/21 15:14) Anaphylaxis feels like body shuts down. Active Medications: Generic Name Dose Route Start Last Admin Trade Name Freq PRN Reason Stop Dose Admin Acetaminophen 650 mg 04/02/21 01:14 Acetaminophen 325 Mg Tab PO Q4H PRN Pain MILD(1-3)/Fever >100.5/ZELAYA Albuterol 2.5 mg 04/04/21 12:00 Albuterol 2.5 Mg/3 Ml Nebu IH Q4HRT PRN Shortness Of Breath Albuterol/Ipratropium 1 ampul 04/04/21 20:00 04/07/21 08:02 Ipratropium/Albuterol Sulfate 3 Ml Ampul.Neb IH 1 ampul BIDRT MOODY Administration Darunavir 800 mg 04/02/21 16:00 04/06/21 11:58 Darunavir 800 Mg Tab PO 800 mg QDAY MOODY Administration Famotidine 20 mg 04/02/21 10:00 04/06/21 11:58 Famotidine 20 Mg/2 Ml Inj IV 20 mg DAILY MOODY Administration Heparin Sodium (Porcine) 5,000 unit 04/02/21 06:00 04/07/21 05:17 Heparin 5,000 Unit/1 Ml Vial SUB-Q Not Given Q8HR MOODY Hydralazine HCl 10 mg 04/04/21 01:32 04/04/21 01:52 Hydralazine 20 Mg/1 Ml Inj IV 10 mg Q6HR PRN Administration Hypertension Hydromorphone HCl 0.5 mg 04/02/21 01:14 Hydromorphone 1 Mg/1 Ml Inj IV Q3H PRN Pain , Severe (7-10) Sodium Chloride 100 mls @ 999 mls/hr 04/06/21 09:00 Nacl 0.9% IV PRACHI PRN Hypotension Morphine Sulfate 2 mg 04/02/21 01:14 Morphine 2 Mg/1 Ml Inj IV Q4H PRN Pain, Moderate (4-6) Ondansetron HCl 4 mg 04/02/21 01:14 Ondansetron 4 Mg/2 Ml Inj IV Q8H PRN Nausea And Vomiting Ritonavir 100 mg 04/02/21 16:00 04/06/21 11:58 Ritonavir 100 Mg Tab PO 100 mg QDAY MOODY Administration Sodium Chloride 10 ml 04/02/21 10:00 04/06/21 22:20 Sodium Chloride 0.9% 10 Ml Flush Syringe IV 10 ml BID MOODY Administration Sodium Chloride 10 ml 04/02/21 01:14 Sodium Chloride 0.9% 10 Ml Flush Syringe IV PRN PRN LINE FLUSH
--- NOTE | 2021-04-07 09:19 | Progress Note ---
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 Patient states for the last week he has had crampy abdominal pain and loose stools. Denies any blood in his stools. Also has some nausea denies fevers cough cold congestion. Patient states he feels fatigued. Abdominal cramps are estimated at 5 out of 10 in severity and occur intermittently. In the emergency room patient is found to have potassium of 6.8, BUN of fifty- three and creatinine of 7.2, bicarb of fourteen. CT is consistent with colitis. pt was started on metronidazole , Levaquin. Patient was given some Bentyl and IV fluids. Patient likely has had some worsening of his renal function secondary to some dehydration from the diarrhea and his potassium is elevated. Patient was given insulin 7 units IV x1 dose D50, calcium gluconate 1 g. Kayexalate and sodium bicarb to get his potassium to come down. Patient was admitted to the hospitalist service. Nephrology consulted. ROMMEL superimposed on CKD stage 5 ESRD needing hemodialysis -follows with [facility] nephrology -Nephrology consulted; appreciate recs. Nephrology recommends hemodialysis; pending Vas-Cath placement. Vascular surgery placed Vas-Cath Renally dose medications and avoid nephrotoxic meds. Monitor with daily BMP Hyperkalemiaresolved Colitis -Continue regular diet as tolerated -Possibly viral but patient is afebrile with normal white count. Has been ongoing for several weeks ( may need outpatient colonoscopy to evaluate for possible inflammatory etiology). -Pending C. difficile. Stool studies negative for Giardia or Cryptosporidium. -Continue Zofran prn -Discontinued Flagyl and Levaquin -Infectious disease consulted; appreciate recs -Continue to monitor Human immunodeficiency virus infection - follow with [facility] dept. - CD4 count reported to be in 1100's. - Is compliant on HAART therapy:Norvir, Prezista, rilpivirine History of CKD stage IV - baseline? -Nephrology consulted; appreciate recs Dehydrationresolved -Status post IV fluids 04/06/2021 Patient had Vas-Cath Patient needs hemodialysis chair Patient had hemodialysis 04/07/2021. Patient still awaiting outpatient hemodialysis chair. History Interval history: No new issues overnight. Hospitalist Physical - Constitutional Vitals: Temp Pulse Resp BP Pulse Ox 98.2 F 92 H 18 156/71 98 04/07/21 04:40 04/07/21 08:02 04/07/21 08:02 04/07/21 04:40 04/07/21 08:25 General appearance: Present: no acute distress, well-nourished - EENT Eyes: Present: PERRL, EOM intact ENT: hearing intact, clear oral mucosa, dentition normal - Neck Neck: Present: supple, normal ROM - Respiratory Respiratory effort: normal Respiratory: bilateral: CTA - Cardiovascular Rhythm: regular Heart Sounds: Present: S1 & S2. Absent: gallop, rub - Extremities Extremities: no ischemia, No edema, Full ROM - Abdominal General gastrointestinal: soft, non-tender, non-distended, normal bowel sounds - Integumentary Integumentary: Present: clear, warm, dry - Neurologic Neurologic: CNII-XII intact, moves all extremities Results - Labs CBC & Chem 7: 04/04/21 05:00 04/07/21 04:42 Labs: Laboratory Last Values WBC 7.2 K/mm3 (4.5-11.0) 04/04/21 05:00 RBC 2.57 M/mm3 (3.65-5.03) L 04/04/21 05:00 Hgb 7.8 gm/dl (11.8-15.2) L 04/04/21 05:00 Hct 24.0 % (35.5-45.6) L 04/04/21 05:00 MCV 94 fl (84-94) 04/04/21 05:00 MCH 30 pg (28-32) 04/04/21 05:00 MCHC 32 % (32-34) 04/04/21 05:00 RDW 15.4 % (13.2-15.2) H 04/04/21 05:00 Plt Count 321 K/mm3 (140-440) 04/04/21 05:00 Lymph % (Auto) 44.3 % (13.4-35.0) H 04/02/21 15:48 [place] % (Auto) 13.6 % (0.0-7.3) H 04/03/21 05:27 Eos % (Auto) 4.9 % (0.0-4.3) H 04/03/21 05:27 Baso % (Auto) 1.4 % (0.0-1.8) 04/02/21 15:48 Lymph # (Auto) 3.1 K/mm3 (1.2-5.4) 04/02/21 15:48 [place] # (Auto) 0.8 K/mm3 (0.0-0.8) 04/03/21 05:27 Eos # (Auto) 0.3 K/mm3 (0.0-0.4) 04/03/21 05:27 Baso # (Auto) 0.0 K/mm3 (0.0-0.1) 04/03/21 05:27 Add Manual Diff Complete 04/04/21 05:00 Total Counted 100 04/04/21 05:00 Seg Neutrophils % Fence Post Cutter 04/04/21 05:00 Seg Neuts % (Manual) 31.0 % (40.0-70.0) L 04/04/21 05:00 Band Neutrophils % 1.0 % 04/04/21 05:00 Lymphocytes % (Manual) 58.0 % (13.4-35.0) H 04/04/21 05:00 Reactive Lymphs % (Man) 0 % 04/04/21 05:00 Monocytes % (Manual) 7.0 % (0.0-7.3) 04/04/21 05:00 Eosinophils % (Manual) 3.0 % (0.0-4.3) 04/04/21 05:00 Basophils % (Manual) 0 % (0.0-1.8) 04/04/21 05:00 Metamyelocytes % 0 % 04/04/21 05:00 Myelocytes % 0 % 04/04/21 05:00 Promyelocytes % 0 % 04/04/21 05:00 Blast Cells % 0 % 04/04/21 05:00 Nucleated RBC % Not Reportable 04/04/21 05:00 Seg Neutrophils # 2.0 K/mm3 (1.8-7.7) 04/03/21 05:27 Seg Neutrophils # Man 2.2 K/mm3 (1.8-7.7) 04/04/21 05:00 Band Neutrophils # 0.1 K/mm3 04/04/21 05:00 Lymphocytes # (Manual) 4.2 K/mm3 (1.2-5.4) 04/04/21 05:00 Abs React Lymphs (Man) 0.0 K/mm3 04/04/21 05:00 Monocytes # (Manual) 0.5 K/mm3 (0.0-0.8) 04/04/21 05:00 Eosinophils # (Manual) 0.2 K/mm3 (0.0-0.4) 04/04/21 05:00 Basophils # (Manual) 0.0 K/mm3 (0.0-0.1) 04/04/21 05:00 Metamyelocytes # 0.0 K/mm3 04/04/21 05:00 Myelocytes # 0.0 K/mm3 04/04/21 05:00 Promyelocytes # 0.0 K/mm3 04/04/21 05:00 Blast Cells # 0.0 K/mm3 04/04/21 05:00 WBC Morphology Not Reportable 04/04/21 05:00 Hypersegmented Neuts Not Reportable 04/04/21 05:00 Hyposegmented Neuts Not Reportable 04/04/21 05:00 Hypogranular Neuts Not Reportable 04/04/21 05:00 Smudge Cells Not Reportable 04/04/21 05:00 Toxic Granulation Not Reportable 04/04/21 05:00 Toxic Vacuolation Not Reportable 04/04/21 05:00 Dohle Bodies Not Reportable 04/04/21 05:00 Pelger-Huet Anomaly Not Reportable 04/04/21 05:00 Davion Rods Not Reportable 04/04/21 05:00 Platelet Estimate Consistent w auto 04/04/21 05:00 Clumped Platelets Not Reportable 04/04/21 05:00 Plt Clumps, EDTA Not Reportable 04/04/21 05:00 Large Platelets Not Reportable 04/04/21 05:00 Giant Platelets Not Reportable 04/04/21 05:00 Platelet Satelliting Not Reportable 04/04/21 05:00 Plt Morphology Comment Not Reportable 04/04/21 05:00 RBC Morphology Not Reportable 04/04/21 05:00 Dimorphic RBCs Not Reportable 04/04/21 05:00 Polychromasia Not Reportable 04/04/21 05:00 Hypochromasia Not Reportable 04/04/21 05:00 Poikilocytosis Not Reportable 04/04/21 05:00 Anisocytosis 1+ 04/04/21 05:00 Microcytosis Not Reportable 04/04/21 05:00 Macrocytosis Not Reportable 04/04/21 05:00 Spherocytes Not Reportable 04/04/21 05:00 Pappenheimer Bodies Not Reportable 04/04/21 05:00 Sickle Cells Not Reportable 04/04/21 05:00 Target Cells Not Reportable 04/04/21 05:00 Tear Drop Cells Not Reportable 04/04/21 05:00 Ovalocytes Not Reportable 04/04/21 05:00 Helmet Cells Not Reportable 04/04/21 05:00 [place] Bodies Not Reportable 04/04/21 05:00 [place] Rings Not Reportable 04/04/21 05:00 [place] Cells Not Reportable 04/04/21 05:00 Bite Cells Not Reportable 04/04/21 05:00 Crenated Cell Not Reportable 04/04/21 05:00 Elliptocytes Not Reportable 04/04/21 05:00 Acanthocytes (Spur) Not Reportable 04/04/21 05:00 Rouleaux Not Reportable 04/04/21 05:00 Hemoglobin C Crystals Not Reportable 04/04/21 05:00 Schistocytes Not Reportable 04/04/21 05:00 Malaria parasites Not Reportable 04/04/21 05:00 Enrique Bodies Not Reportable 04/04/21 05:00 Hem Pathologist Commnt No 04/04/21 05:00 Sodium 142 mmol/L (137-145) 04/07/21 04:42 Potassium 4.0 mmol/L (3.6-5.0) D 04/07/21 04:42 Chloride 102.6 mmol/L (98-107) 04/07/21 04:42 Carbon Dioxide 23 mmol/L (22-30) 04/07/21 04:42 Anion Gap 20 mmol/L 04/07/21 04:42 BUN 21 mg/dL (9-20) H 04/07/21 04:42 Creatinine 5.0 mg/dL (0.8-1.3) H 04/07/21 04:42 Estimated GFR 16 ml/min 04/07/21 04:42 BUN/Creatinine Ratio 4 % 04/07/21 04:42 Glucose 91 mg/dL (75-100) 04/07/21 04:42 POC Glucose 108 mg/dL (70-105) H 04/03/21 17:28 Calcium 8.5 mg/dL (8.4-10.2) 04/07/21 04:42 Phosphorus 4.50 mg/dL (2.5-4.5) 04/04/21 05:00 Magnesium 2.20 mg/dL (1.7-2.3) 04/04/21 05:00 Iron 41 ug/dL (49-181) L 04/06/21 11:45 TIBC 234 mcg/dL (250-450) L 04/06/21 11:45 % Saturation 17.52 % 04/06/21 11:45 Transferrin 187 mg/dl (180-329) 04/06/21 11:45 Ferritin 66.5 ng/mL (30.0-300.0) 04/06/21 11:45 Total Bilirubin < 0.20 mg/dL (0.1-1.2) 04/01/21 20:50 AST 14 units/L (5-40) 04/01/21 20:50 ALT 8 units/L (7-56) 04/01/21 20:50 Alkaline Phosphatase 89 units/L (35-129) 04/01/21 20:50 Total Protein 7.6 g/dL (6.3-8.2) 04/01/21 20:50 Albumin 3.7 g/dL (3.9-5) L 04/01/21 20:50 Albumin/Globulin Ratio 0.9 % 04/01/21 20:50 Lipase 67 units/L (13-60) H 04/01/21 20:50 PTH Intact 319.5 pg/mL (15-65) H 04/04/21 Unknown Urine Color Yellow (Yellow) 04/01/21 Unknown Urine Turbidity Slightly-cloudy (Clear) 04/01/21 Unknown Urine pH 5.0 (5.0-7.0) 04/01/21 Unknown Ur Specific [place] 1.010 (1.003-1.030) 04/01/21 Unknown Urine Protein >500 mg/dL (Negative) 04/01/21 Unknown Urine Glucose (UA) Neg mg/dL (Negative) 04/01/21 Unknown Urine Ketones Neg mg/dL (Negative) 04/01/21 Unknown Urine Blood Neg (Negative) 04/01/21 Unknown Urine Nitrite Neg (Negative) 04/01/21 Unknown Urine Bilirubin Neg (Negative) 04/01/21 Unknown Urine Urobilinogen < 2.0 mg/dL (<2.0) 04/01/21 Unknown Ur Leukocyte Esterase Neg (Negative) 04/01/21 Unknown Urine WBC (Auto) 7.0 /HPF (0.0-6.0) H 04/01/21 Unknown Urine RBC (Auto) 1.0 /HPF (0.0-6.0) 04/01/21 Unknown U Epithel Cells (Auto) 1.0 /HPF (0-13.0) 04/01/21 Unknown Urine Mucus Few /HPF 04/01/21 Unknown Urine Creatinine 81.3 mg/dL (0.1-20.0) H 04/02/21 20:55 Coronavirus (PCR) Negative (Negative) 04/03/21 09:33 Hepatitis A IgM Ab Non-reactive (NonReactive) 04/02/21 18:18 Hep Bs Antigen Non-reactive (Negative) 04/02/21 18:18 Hep B Core IgM Ab Non-reactive (NonReactive) 04/02/21 18:18 Hepatitis C Antibody Non-reactive (NonReactive) 04/02/21 18:18 Salazar/IV: Voiding Method Toilet Active Medications - Current Medications Current Medications: Generic Name Dose Route Start Last Admin Trade Name Freq PRN Reason Stop Dose Admin Acetaminophen 650 mg 04/02/21 01:14 Acetaminophen 325 Mg Tab PO Q4H PRN Pain MILD(1-3)/Fever >100.5/ZELAYA Albuterol 2.5 mg 04/04/21 12:00 Albuterol 2.5 Mg/3 Ml Nebu IH Q4HRT PRN Shortness Of Breath Albuterol/Ipratropium 1 ampul 04/04/21 20:00 04/07/21 08:02 Ipratropium/Albuterol Sulfate 3 Ml Ampul.Neb IH 1 ampul BIDRT MOODY Administration Darunavir 800 mg 04/02/21 16:00 04/06/21 11:58 Darunavir 800 Mg Tab PO 800 mg QDAY MOODY Administration Famotidine 20 mg 04/02/21 10:00 04/06/21 11:58 Famotidine 20 Mg/2 Ml Inj IV 20 mg DAILY MOODY Administration Heparin Sodium (Porcine) 5,000 unit 04/02/21 06:00 04/07/21 05:17 Heparin 5,000 Unit/1 Ml Vial SUB-Q Not Given Q8HR MOODY Hydralazine HCl 10 mg 04/04/21 01:32 04/04/21 01:52 Hydralazine 20 Mg/1 Ml Inj IV 10 mg Q6HR PRN Administration Hypertension Hydromorphone HCl 0.5 mg 04/02/21 01:14 Hydromorphone 1 Mg/1 Ml Inj IV Q3H PRN Pain , Severe (7-10) Sodium Chloride 100 mls @ 999 mls/hr 04/06/21 09:00 Nacl 0.9% IV PRACHI PRN Hypotension Sodium Chloride 100 mls @ 999 mls/hr 04/07/21 09:10 Nacl 0.9% IV PRACHI PRN Hypotension Ferric Sodium Gluconate 110 mls @ 100 mls/hr 04/07/21 10:00 Complex 125 mg/ Sodium IV 04/11/21 11:05 Chloride DAILY MOODY Morphine Sulfate 2 mg 04/02/21 01:14 Morphine 2 Mg/1 Ml Inj IV Q4H PRN Pain, Moderate (4-6) Ondansetron HCl 4 mg 04/02/21 01:14 Ondansetron 4 Mg/2 Ml Inj IV Q8H PRN Nausea And Vomiting Ritonavir 100 mg 04/02/21 16:00 04/06/21 11:58 Ritonavir 100 Mg Tab PO 100 mg QDAY MOODY Administration Sodium Chloride 10 ml 04/02/21 10:00 04/06/21 22:20 Sodium Chloride 0.9% 10 Ml Flush Syringe IV 10 ml BID MOODY Administration Sodium Chloride 10 ml 04/02/21 01:14 Sodium Chloride 0.9% 10 Ml Flush Syringe IV PRN PRN LINE FLUSH Nutrition/Malnutrition Assess - Dietary Evaluation Nutrition/Malnutrition Findings: Nutrition Notes Start: 04/05/21 08:36 Freq: Status: Active Protocol: Document 04/05/21 08:36 WALI (Rec: 04/05/21 08:45 WALI [id number]) Nutrition Notes Need for Assessment generated from: MD Order,Education Initial or Follow up Brief Note Current Diagnosis Acute Kidney Injury,CKD (stage V CKD) Other Pertinent Diagnosis ESRD, Colitis, HIV infection. Current Diet NPO (since 04/05 00:01). 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 Weight Status Appropriate Subjective/Other Information RD consult for Nutrition Education. Pt needs Hemodyalisis, will have VasCath placed early this week. Pt has HIV infection, not a candidate for nutrition education. Percent of energy/protein needs met: Pt currently on NPO. Nutrition Intervention Follow-Up By: 04/12/21 Additional Comments Continue monitoring food tolerance, %PO intake of meals , and BM.
[2021-04-07] MEDS ORDERED: SODIUM CHLORIDE 0.9% 100 ML IV PRN (09:30)
[2021-04-07] MEDS: FAMOTIDINE 20 MG/2 ML INJ IV SCH (10:08)
[2021-04-07] MEDS: DOLUTEGRAVIR 50 MG TAB PO SCH (10:08)
[2021-04-07] MEDS: RITONAVIR 100 MG TAB PO SCH (10:08)
[2021-04-07] MEDS: DARUNAVIR 800 MG TAB PO SCH (10:08)
[2021-04-07] MEDS: SODIUM FERRIC GLUCON/SUCRO 125 MG in SODIUM CHLORIDE 0.9% 100 ML IV SCH (18:00)
[2021-04-08] MEDS: HEPARIN 5,000 UNIT/1 ML VIAL SUB-Q SCH ×3 (06:04→21:30)
--- NOTE | 2021-04-08 09:08 | Progress Note ---
Assessment and Plan Impression: * End stage renal disease --Permcath insertion - Apr 05 --HD initiation - Apr 05 * Hyperkalemia * Metabolic acidosis * HIV Plan: * Patient is s/p daily HD x 3 * Continue MWF schedule * UF as tolerated * Epogen TIW prn * Continue Ferrlecit IV daily x 5 - day 2 * Renal diet * Outpatient HD at [facility] - MWF 3pm. Can start on Apr 09. - Discussed with Dr. Koroma Subjective Date of service: 04/08/21 Principal diagnosis: siva, hyperkalemia Interval history: Patient has no complaints Objective - Vital Signs Vital signs: Vital Signs - 12hr 04/07/21 04/07/21 04/08/21 21:08 23:51 04:55 Temperature 98.5 F 98.1 F Pulse Rate 92 H 89 Pulse Rate [ 98 H Bilateral Throughout] Respiratory 18 18 Rate Respiratory 18 Rate [Bilateral Throughout] Blood Pressure 136/74 135/71 O2 Sat by Pulse 94 94 Oximetry - General Appearance General appearance: well-developed, well-nourished EENT: ATNC Respiratory: Present: Clear to Ascultation Cardiology: regular, S1S2 Gastrointestinal: normal Integumentary: no rash, warm and dry - Lab 04/04/21 05:00 04/08/21 06:59 Most recent lab results Calcium 9.0 mg/dL (8.4-10.2) 04/08/21 06:59 Phosphorus 4.50 mg/dL (2.5-4.5) 04/04/21 05:00 Magnesium 2.20 mg/dL (1.7-2.3) 04/04/21 05:00 Urine Creatinine 81.3 mg/dL (0.1-20.0) H 04/02/21 20:55 Medications & Allergies - Medications Allergies/Adverse Reactions: Allergies Penicillins Allergy (Verified 04/05/21 15:14) Anaphylaxis feels like body shuts down. Home Medications: Home Medications Medication Instructions Recorded Confirmed Last Taken Type Darunavir [Prezista] 800 mg PO QDAY tablet 04/09/21 Unknown Rx Dolutegravir [Tivicay] 50 mg PO DAILY tablet 04/09/21 Unknown Rx Epoetin Col[place]-Epbx 10,000 Unit 10,000 unit IV PRACHI PRN vial 04/09/21 Unknown Rx [Retacrit] Famotidine [Pepcid] 20 mg PO DAILY tablet 04/09/21 Unknown Rx Ritonavir 100 mg PO QDAY tab 04/09/21 Unknown Rx Active Medications: Generic Name Dose Route Start Last Admin Trade Name Freq PRN Reason Stop Dose Admin Acetaminophen 650 mg 04/02/21 01:14 Acetaminophen 325 Mg Tab PO Q4H PRN Pain MILD(1-3)/Fever >100.5/ZELAYA Albuterol 2.5 mg 04/04/21 12:00 Albuterol 2.5 Mg/3 Ml Nebu IH Q4HRT PRN Shortness Of Breath Albuterol/Ipratropium 1 ampul 04/04/21 20:00 04/07/21 21:07 Ipratropium/Albuterol Sulfate 3 Ml Ampul.Neb IH 1 ampul BIDRT MOODY Administration Darunavir 800 mg 04/02/21 16:00 04/07/21 10:08 Darunavir 800 Mg Tab PO 800 mg QDAY MOODY Administration Famotidine 20 mg 04/08/21 10:00 Famotidine 20 Mg Tab PO DAILY [facility] Heparin Sodium (Porcine) 5,000 unit 04/02/21 06:00 04/08/21 06:04 Heparin 5,000 Unit/1 Ml Vial SUB-Q Not Given Q8HR [facility] Hydralazine HCl 10 mg 04/04/21 01:32 04/04/21 01:52 Hydralazine 20 Mg/1 Ml Inj IV 10 mg Q6HR PRN Administration Hypertension Hydromorphone HCl 0.5 mg 04/02/21 01:14 Hydromorphone 1 Mg/1 Ml Inj IV Q3H PRN Pain , Severe (7-10) Sodium Chloride 100 mls @ 999 mls/hr 04/07/21 09:30 Nacl 0.9% IV PRACHI PRN Hypotension Ferric Sodium Gluconate 110 mls @ 100 mls/hr 04/07/21 10:00 04/07/21 18:00 Complex 125 mg/ Sodium IV 04/11/21 11:05 Not Given Chloride DAILY [facility] Morphine Sulfate 2 mg 04/02/21 01:14 Morphine 2 Mg/1 Ml Inj IV Q4H PRN Pain, Moderate (4-6) Ondansetron HCl 4 mg 04/02/21 01:14 Ondansetron 4 Mg/2 Ml Inj IV Q8H PRN Nausea And Vomiting Ritonavir 100 mg 04/02/21 16:00 04/07/21 10:08 Ritonavir 100 Mg Tab PO 100 mg QDAY MOODY Administration Sodium Chloride 10 ml 04/02/21 10:00 04/07/21 22:06 Sodium Chloride 0.9% 10 Ml Flush Syringe IV 10 ml BID MOODY Administration Sodium Chloride 10 ml 04/02/21 01:14 Sodium Chloride 0.9% 10 Ml Flush Syringe IV PRN PRN LINE FLUSH
[2021-04-08] MEDS: DARUNAVIR 800 MG TAB PO SCH (10:51)
[2021-04-08] MEDS: FAMOTIDINE 20 MG TAB PO SCH (10:51)
[2021-04-08] MEDS: DOLUTEGRAVIR 50 MG TAB PO SCH (10:52)
[2021-04-08] MEDS: RITONAVIR 100 MG TAB PO SCH (10:52)
[2021-04-08] MEDS: IPRATROPIUM/ALBUTEROL SULFATE 3 ML AMPUL.NEB IH SCH ×2 (11:12→23:58)
--- NOTE | 2021-04-08 12:37 | Progress Note ---
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 Patient states for the last week he has had crampy abdominal pain and loose stools. Denies any blood in his stools. Also has some nausea denies fevers cough cold congestion. Patient states he feels fatigued. Abdominal cramps are estimated at 5 out of 10 in severity and occur intermittently. In the emergency room patient is found to have potassium of 6.8, BUN of fifty- three and creatinine of 7.2, bicarb of fourteen. CT is consistent with colitis. pt was started on metronidazole , Levaquin. Patient was given some Bentyl and IV fluids. Patient likely has had some worsening of his renal function secondary to some dehydration from the diarrhea and his potassium is elevated. Patient was given insulin 7 units IV x1 dose D50, calcium gluconate 1 g. Kayexalate and sodium bicarb to get his potassium to come down. Patient was admitted to the hospitalist service. Nephrology consulted. ROMMEL superimposed on CKD stage 5 ESRD needing hemodialysis -follows with [facility] nephrology -Nephrology consulted; appreciate recs. Nephrology recommends hemodialysis; pending Vas-Cath placement. Vascular surgery placed Vas-Cath Renally dose medications and avoid nephrotoxic meds. Monitor with daily BMP Hyperkalemiaresolved Colitis -Continue regular diet as tolerated -Possibly viral but patient is afebrile with normal white count. Has been ongoing for several weeks ( may need outpatient colonoscopy to evaluate for possible inflammatory etiology). -Pending C. difficile. Stool studies negative for Giardia or Cryptosporidium. -Continue Zofran prn -Discontinued Flagyl and Levaquin -Infectious disease consulted; appreciate recs -Continue to monitor Human immunodeficiency virus infection - follow with [facility] dept. - CD4 count reported to be in 1100's. - Is compliant on HAART therapy:Norvir, Prezista, rilpivirine History of CKD stage IV - baseline? -Nephrology consulted; appreciate recs Dehydrationresolved -Status post IV fluids 04/06/2021 Patient had Vas-Cath Patient needs hemodialysis chair Patient had hemodialysis 04/07/2021. Patient still awaiting outpatient hemodialysis chair. 04/08/2021. Patient still awaiting outpatient hemodialysis chair. Patient will need chest x-ray for screening and COVID testing. History Interval history: No new issues overnight. Hospitalist Physical - Constitutional Vitals: Temp Pulse Resp BP Pulse Ox 98.1 F 89 18 135/71 99 04/08/21 04:55 04/08/21 11:10 04/08/21 11:10 04/08/21 04:55 04/08/21 11:13 General appearance: Present: no acute distress, well-nourished - EENT Eyes: Present: PERRL, EOM intact ENT: hearing intact, clear oral mucosa, dentition normal - Neck Neck: Present: supple, normal ROM - Respiratory Respiratory effort: normal Respiratory: bilateral: CTA - Cardiovascular Rhythm: regular Heart Sounds: Present: S1 & S2. Absent: gallop, rub - Extremities Extremities: no ischemia, No edema, Full ROM - Abdominal General gastrointestinal: soft, non-tender, non-distended, normal bowel sounds - Integumentary Integumentary: Present: clear, warm, dry - Neurologic Neurologic: CNII-XII intact, moves all extremities Results - Labs CBC & Chem 7: 04/04/21 05:00 04/08/21 06:59 Labs: Laboratory Last Values WBC 7.2 K/mm3 (4.5-11.0) 04/04/21 05:00 RBC 2.57 M/mm3 (3.65-5.03) L 04/04/21 05:00 Hgb 7.8 gm/dl (11.8-15.2) L 04/04/21 05:00 Hct 24.0 % (35.5-45.6) L 04/04/21 05:00 MCV 94 fl (84-94) 04/04/21 05:00 MCH 30 pg (28-32) 04/04/21 05:00 MCHC 32 % (32-34) 04/04/21 05:00 RDW 15.4 % (13.2-15.2) H 04/04/21 05:00 Plt Count 321 K/mm3 (140-440) 04/04/21 05:00 Lymph % (Auto) 44.3 % (13.4-35.0) H 04/02/21 15:48 Bullock % (Auto) 13.6 % (0.0-7.3) H 04/03/21 05:27 Eos % (Auto) 4.9 % (0.0-4.3) H 04/03/21 05:27 Baso % (Auto) 1.4 % (0.0-1.8) 04/02/21 15:48 Lymph # (Auto) 3.1 K/mm3 (1.2-5.4) 04/02/21 15:48 Bullock # (Auto) 0.8 K/mm3 (0.0-0.8) 04/03/21 05:27 Eos # (Auto) 0.3 K/mm3 (0.0-0.4) 04/03/21 05:27 Baso # (Auto) 0.0 K/mm3 (0.0-0.1) 04/03/21 05:27 Add Manual Diff Complete 04/04/21 05:00 Total Counted 100 04/04/21 05:00 Seg Neutrophils % 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 04/04/21 05:00 Seg Neuts % (Manual) 31.0 % (40.0-70.0) L 04/04/21 05:00 Band Neutrophils % 1.0 % 04/04/21 05:00 Lymphocytes % (Manual) 58.0 % (13.4-35.0) H 04/04/21 05:00 Reactive Lymphs % (Man) 0 % 04/04/21 05:00 Monocytes % (Manual) 7.0 % (0.0-7.3) 04/04/21 05:00 Eosinophils % (Manual) 3.0 % (0.0-4.3) 04/04/21 05:00 Basophils % (Manual) 0 % (0.0-1.8) 04/04/21 05:00 Metamyelocytes % 0 % 04/04/21 05:00 Myelocytes % 0 % 04/04/21 05:00 Promyelocytes % 0 % 04/04/21 05:00 Blast Cells % 0 % 04/04/21 05:00 Nucleated RBC % Not Reportable 04/04/21 05:00 Seg Neutrophils # 2.0 K/mm3 (1.8-7.7) 04/03/21 05:27 Seg Neutrophils # Man 2.2 K/mm3 (1.8-7.7) 04/04/21 05:00 Band Neutrophils # 0.1 K/mm3 04/04/21 05:00 Lymphocytes # (Manual) 4.2 K/mm3 (1.2-5.4) 04/04/21 05:00 Abs React Lymphs (Man) 0.0 K/mm3 04/04/21 05:00 Monocytes # (Manual) 0.5 K/mm3 (0.0-0.8) 04/04/21 05:00 Eosinophils # (Manual) 0.2 K/mm3 (0.0-0.4) 04/04/21 05:00 Basophils # (Manual) 0.0 K/mm3 (0.0-0.1) 04/04/21 05:00 Metamyelocytes # 0.0 K/mm3 04/04/21 05:00 Myelocytes # 0.0 K/mm3 04/04/21 05:00 Promyelocytes # 0.0 K/mm3 04/04/21 05:00 Blast Cells # 0.0 K/mm3 04/04/21 05:00 WBC Morphology Not Reportable 04/04/21 05:00 Hypersegmented Neuts Not Reportable 04/04/21 05:00 Hyposegmented Neuts Not Reportable 04/04/21 05:00 Hypogranular Neuts Not Reportable 04/04/21 05:00 Smudge Cells Not Reportable 04/04/21 05:00 Toxic Granulation Not Reportable 04/04/21 05:00 Toxic Vacuolation Not Reportable 04/04/21 05:00 Dohle Bodies Not Reportable 04/04/21 05:00 Pelger-Huet Anomaly Not Reportable 04/04/21 05:00 Davion Rods Not Reportable 04/04/21 05:00 Platelet Estimate Consistent w auto 04/04/21 05:00 Clumped Platelets Not Reportable 04/04/21 05:00 Plt Clumps, EDTA Not Reportable 04/04/21 05:00 Large Platelets Not Reportable 04/04/21 05:00 Giant Platelets Not Reportable 04/04/21 05:00 Platelet Satelliting Not Reportable 04/04/21 05:00 Plt Morphology Comment Not Reportable 04/04/21 05:00 RBC Morphology Not Reportable 04/04/21 05:00 Dimorphic RBCs Not Reportable 04/04/21 05:00 Polychromasia Not Reportable 04/04/21 05:00 Hypochromasia Not Reportable 04/04/21 05:00 Poikilocytosis Not Reportable 04/04/21 05:00 Anisocytosis 1+ 04/04/21 05:00 Microcytosis Not Reportable 04/04/21 05:00 Macrocytosis Not Reportable 04/04/21 05:00 Spherocytes Not Reportable 04/04/21 05:00 Pappenheimer Bodies Not Reportable 04/04/21 05:00 Sickle Cells Not Reportable 04/04/21 05:00 Target Cells Not Reportable 04/04/21 05:00 Tear Drop Cells Not Reportable 04/04/21 05:00 Ovalocytes Not Reportable 04/04/21 05:00 Helmet Cells Not Reportable 04/04/21 05:00 [place] Bodies Not Reportable 04/04/21 05:00 [place] Rings Not Reportable 04/04/21 05:00 [place] Cells Not Reportable 04/04/21 05:00 Bite Cells Not Reportable 04/04/21 05:00 Crenated Cell Not Reportable 04/04/21 05:00 Elliptocytes Not Reportable 04/04/21 05:00 Acanthocytes (Spur) Not Reportable 04/04/21 05:00 Rouleaux Not Reportable 04/04/21 05:00 Hemoglobin C Crystals Not Reportable 04/04/21 05:00 Schistocytes Not Reportable 04/04/21 05:00 Malaria parasites Not Reportable 04/04/21 05:00 Enrique Bodies Not Reportable 04/04/21 05:00 Hem Pathologist Commnt No 04/04/21 05:00 Sodium 141 mmol/L (137-145) 04/08/21 06:59 Potassium 4.4 mmol/L (3.6-5.0) 04/08/21 06:59 Chloride 102.6 mmol/L (98-107) 04/08/21 06:59 Carbon Dioxide 23 mmol/L (22-30) 04/08/21 06:59 Anion Gap 20 mmol/L 04/08/21 06:59 BUN 21 mg/dL (9-20) H 04/08/21 06:59 Creatinine 4.9 mg/dL (0.8-1.3) H 04/08/21 06:59 Estimated GFR 16 ml/min 04/08/21 06:59 BUN/Creatinine Ratio 4 % 04/08/21 06:59 Glucose 100 mg/dL (75-100) 04/08/21 06:59 POC Glucose 108 mg/dL (70-105) H 04/03/21 17:28 Calcium 9.0 mg/dL (8.4-10.2) 04/08/21 06:59 Phosphorus 4.50 mg/dL (2.5-4.5) 04/04/21 05:00 Magnesium 2.20 mg/dL (1.7-2.3) 04/04/21 05:00 Iron 41 ug/dL (49-181) L 04/06/21 11:45 TIBC 234 mcg/dL (250-450) L 04/06/21 11:45 % Saturation 17.52 % 04/06/21 11:45 Transferrin 187 mg/dl (180-329) 04/06/21 11:45 Ferritin 66.5 ng/mL (30.0-300.0) 04/06/21 11:45 Total Bilirubin < 0.20 mg/dL (0.1-1.2) 04/01/21 20:50 AST 14 units/L (5-40) 04/01/21 20:50 ALT 8 units/L (7-56) 04/01/21 20:50 Alkaline Phosphatase 89 units/L (35-129) 04/01/21 20:50 Total Protein 7.6 g/dL (6.3-8.2) 04/01/21 20:50 Albumin 3.7 g/dL (3.9-5) L 04/01/21 20:50 Albumin/Globulin Ratio 0.9 % 04/01/21 20:50 Lipase 67 units/L (13-60) H 04/01/21 20:50 PTH Intact 319.5 pg/mL (15-65) H 04/04/21 Unknown Urine Color Yellow (Yellow) 04/01/21 Unknown Urine Turbidity Slightly-cloudy (Clear) 04/01/21 Unknown Urine pH 5.0 (5.0-7.0) 04/01/21 Unknown Ur Specific [place] 1.010 (1.003-1.030) 04/01/21 Unknown Urine Protein >500 mg/dL (Negative) 04/01/21 Unknown Urine Glucose (UA) Neg mg/dL (Negative) 04/01/21 Unknown Urine Ketones Neg mg/dL (Negative) 04/01/21 Unknown Urine Blood Neg (Negative) 04/01/21 Unknown Urine Nitrite Neg (Negative) 04/01/21 Unknown Urine Bilirubin Neg (Negative) 04/01/21 Unknown Urine Urobilinogen < 2.0 mg/dL (<2.0) 04/01/21 Unknown Ur Leukocyte Esterase Neg (Negative) 04/01/21 Unknown Urine WBC (Auto) 7.0 /HPF (0.0-6.0) H 04/01/21 Unknown Urine RBC (Auto) 1.0 /HPF (0.0-6.0) 04/01/21 Unknown U Epithel Cells (Auto) 1.0 /HPF (0-13.0) 04/01/21 Unknown Urine Mucus Few /HPF 04/01/21 Unknown Urine Creatinine 81.3 mg/dL (0.1-20.0) H 04/02/21 20:55 Coronavirus (PCR) Negative (Negative) 04/03/21 09:33 Hepatitis A IgM Ab Non-reactive (NonReactive) 04/02/21 18:18 Hep Bs Antigen Non-reactive (Negative) 04/02/21 18:18 Hep B Core IgM Ab Non-reactive (NonReactive) 04/02/21 18:18 Hepatitis C Antibody Non-reactive (NonReactive) 04/02/21 18:18 Microbiology: Microbiology 04/03/21 05:00 Stool Stool Culture - Final 04/03/21 05:00 Stool Stool for WBCs - Final 04/03/21 05:00 Stool Cryptosporidium Exam - Final NEGATIVE 04/03/21 05:00 Stool Giardia Antigen (WM) - Final NEGATIVE Salazar/IV: Voiding Method Toilet Active Medications - Current Medications Current Medications: Generic Name Dose Route Start Last Admin Trade Name Freq PRN Reason Stop Dose Admin Acetaminophen 650 mg 04/02/21 01:14 Acetaminophen 325 Mg Tab PO Q4H PRN Pain MILD(1-3)/Fever >100.5/ZELAYA Albuterol 2.5 mg 04/04/21 12:00 Albuterol 2.5 Mg/3 Ml Nebu IH Q4HRT PRN Shortness Of Breath Albuterol/Ipratropium 1 ampul 04/04/21 20:00 04/08/21 11:12 Ipratropium/Albuterol Sulfate 3 Ml Ampul.Neb IH 1 ampul BIDRT MOODY Administration Darunavir 800 mg 04/02/21 16:00 04/08/21 10:51 Darunavir 800 Mg Tab PO 800 mg QDAY MOODY Administration Famotidine 20 mg 04/08/21 10:00 04/08/21 10:51 Famotidine 20 Mg Tab PO 20 mg DAILY MOODY Administration Heparin Sodium (Porcine) 5,000 unit 04/02/21 06:00 04/08/21 06:04 Heparin 5,000 Unit/1 Ml Vial SUB-Q Not Given Q8HR MOODY Hydralazine HCl 10 mg 04/04/21 01:32 04/04/21 01:52 Hydralazine 20 Mg/1 Ml Inj IV 10 mg Q6HR PRN Administration Hypertension Hydromorphone HCl 0.5 mg 04/02/21 01:14 Hydromorphone 1 Mg/1 Ml Inj IV Q3H PRN Pain , Severe (7-10) Sodium Chloride 100 mls @ 999 mls/hr 04/07/21 09:30 Nacl 0.9% IV PRCAHI PRN Hypotension Ferric Sodium Gluconate 110 mls @ 100 mls/hr 04/07/21 10:00 04/07/21 18:00 Complex 125 mg/ Sodium IV 04/11/21 11:05 Not Given Chloride DAILY [facility] Morphine Sulfate 2 mg 04/02/21 01:14 Morphine 2 Mg/1 Ml Inj IV Q4H PRN Pain, Moderate (4-6) Ondansetron HCl 4 mg 04/02/21 01:14 Ondansetron 4 Mg/2 Ml Inj IV Q8H PRN Nausea And Vomiting Ritonavir 100 mg 04/02/21 16:00 04/08/21 10:52 Ritonavir 100 Mg Tab PO 100 mg QDAY MOODY Administration Sodium Chloride 10 ml 04/02/21 10:00 04/08/21 10:52 Sodium Chloride 0.9% 10 Ml Flush Syringe IV 10 ml BID MOODY Administration Sodium Chloride 10 ml 04/02/21 01:14 Sodium Chloride 0.9% 10 Ml Flush Syringe IV PRN PRN LINE FLUSH Nutrition/Malnutrition Assess - Dietary Evaluation Nutrition/Malnutrition Findings: Nutrition Notes Start: 04/05/21 08:36 Freq: Status: Active Protocol: Document 04/05/21 08:36 WALI (Rec: 04/05/21 08:45 WALI [id number]) Nutrition Notes Need for Assessment generated from: MD Order,Education Initial or Follow up Brief Note Current Diagnosis Acute Kidney Injury,CKD (stage V CKD) Other Pertinent Diagnosis ESRD, Colitis, HIV infection. Current Diet NPO (since 04/05 00:01). 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 Weight Status Appropriate Subjective/Other Information RD consult for Nutrition Education. Pt needs Hemodyalisis, will have VasCath placed early this week. Pt has HIV infection, not a candidate for nutrition education. Percent of energy/protein needs met: Pt currently on NPO. Nutrition Intervention Follow-Up By: 04/12/21 Additional Comments Continue monitoring food tolerance, %PO intake of meals , and BM.
--- NOTE | 2021-04-08 13:17 | XRay Report ---
CHEST 1 VIEW 04/08/2021 12:49 PM INDICATION / CLINICAL INFORMATION: HD outpatient screen. COMPARISON: None available. FINDINGS: Right Vas-Cath tip overlies the distal SVC and right atrium. There is marked enlargement of the mediastinum with possible aneurysmal dilatation of the ascending aorta. No pleural effusion is s een. Signer Name: Jose Pal MD Signed: 04/08/2021 1:12 PM Workstation Name: [id number]
[2021-04-08] MEDS: SODIUM FERRIC GLUCON/SUCRO 125 MG in SODIUM CHLORIDE 0.9% 100 ML IV SCH (19:07)
[2021-04-09] MEDS: HEPARIN 5,000 UNIT/1 ML VIAL SUB-Q SCH (06:56)
[2021-04-09] MEDS: IPRATROPIUM/ALBUTEROL SULFATE 3 ML AMPUL.NEB IH SCH (07:41)
--- NOTE | 2021-04-09 07:52 | Discharge Summary ---
Providers - Providers Date of Admission: 04/02/21 01:15 Date of discharge: 04/09/21 Attending physician: NANETTE DON 04/01/21 23:12 Consult to Physician [CONS] Urgent Comment: Consulting Provider: MICKY FLORES Physician Instructions: Reason For Exam: elevated k 04/02/21 11:08 Consult to Physician [CONS] Routine Comment: Consulting Provider: GAGE ALONZO Physician Instructions: Reason For Exam: diarrhea, hx of HIV, ? CMV colitis 04/03/21 10:33 Consult to Physician [CONS] Routine Comment: Consulting Provider: TYSHAWN CORRALES Physician Instructions: Reason For Exam: Placement of vascath 04/04/21 15:06 Consult to Dietitian/Nutrition [CONS] Routine Physician Instructions: Reason For Exam: Reason for Consult: Diet education Hospitalization Reason for admission: abd pain Condition: Stable Hospital course: 40-year-old male with HIV, CKD stage IV who was admitted to the hospital with diagnosis of abdominal pain/colitis, acute kidney injury on chronic kidney disease stage V and hyperkalemia. Patient reportedly had 10-day history of lower abdominal pain and loose stools. CT scan of the abdomen pelvis revealed possible colitis. Infectious disease evaluated the patient and stool studies were obtained. Patient had normal WBC and positive for few PE M ends. Giardia and Cryptosporidium were negative. Patient's symptoms later resolved. ID recommended continuing ART regimen the positive stool WBCs was suggestive of colitis along with a CT scan. Patient will have further follow-up as an outpat ient with GI. Patient was also noted to have acute kidney injury on CKD and was seen by nephrology in consultation. Patient was felt to have progressed to ESRD and PermCath insertion was completed on March with hemodialysis initiation. Nephrology recommended continue with Monday hemodialysis schedule and arrangements were made for outpatient hemodialysis clinic at [facility]. Patient is to discharge today and follow-up at the clinic today at 3 PM for hemodialysis. Dedicated discharge time 35 minutes Disposition: HOME / SELF CARE / HOMELESS Final Discharge Diagnosis (Prints w/discharge instructions): abdominal pain/colitis, acute kidney injury on chronic kidney disease stage V and hyperkalemia. Core Measure Documentation - Palliative Care Palliative Care/ Comfort Measures: Not Applicable - Core Measures Any of the following diagnoses?: none Exam - Constitutional Vitals: Temp Pulse Resp BP Pulse Ox 98.5 F 97 H 16 158/80 93 04/08/21 23:43 04/08/21 23:43 04/08/21 23:43 04/08/21 23:43 04/08/21 23:43 General appearance: Present: no acute distress, well-nourished - EENT Eyes: Present: PERRL ENT: hearing intact, clear oral mucosa - Neck Neck: Present: supple, normal ROM - Respiratory Respiratory effort: normal Respiratory: bilateral: CTA - Cardiovascular Heart Sounds: Present: S1 & S2. Absent: rub, click - Extremities Extremities: pulses symmetrical, No edema Peripheral Pulses: within normal limits - Abdominal General gastrointestinal: Present: soft, non-tender, non-distended, normal bowel sounds Male genitourinary: Present: normal - Integumentary Integumentary: Present: clear, warm, dry - Musculoskeletal Musculoskeletal: gait normal, strength equal bilaterally - Psychiatric Psychiatric: appropriate mood/affect, intact judgment & insight - Neurologic Neurologic: CNII-XII intact, moves all extremities Plan Activity: advance as tolerated Weight Bearing Status: Weight Bear as Tolerated Diet: renal Follow up with: BRENDAN LYONS [Other] - 7 Days TAWNY WATERS MD [Staff Physician] - 7 Days GAGE ALONZO MD [Staff Physician] - 7 Days
[2021-04-09 09:09] VITALS: BP 156/91
[2021-04-09 09:26] LABS: Calcium 9.1 mg/dL (8.4-10.2)
[2021-04-09] MEDS: FAMOTIDINE 20 MG TAB PO SCH (10:24)
[2021-04-09] MEDS: RITONAVIR 100 MG TAB PO SCH (10:24)
[2021-04-09] MEDS: DARUNAVIR 800 MG TAB PO SCH (10:24)
[2021-04-09] MEDS: DOLUTEGRAVIR 50 MG TAB PO SCH (10:24)
--- NOTE | 2021-04-09 13:36 | Progress Note ---
Assessment and Plan Impression: * End stage renal disease --Permcath insertion - Apr 05 --HD initiation - Apr 05 * Hyperkalemia * Metabolic acidosis * HIV Plan: * HD today. Continue MWF schedule * UF as tolerated * Epogen TIW prn * Continue Ferrlecit IV daily - day 3 today * Renal diet * Outpatient HD at [facility] - MWF 3pm. Okay to start Monday Subjective Date of service: 04/09/21 Principal diagnosis: siva, hyperkalemia Interval history: Patient has no complaints. Seen on HD Objective - Vital Signs Vital signs: Vital Signs - 12hr 04/09/21 04/09/21 04/09/21 04:15 07:41 08:20 Temperature 98.0 F Pulse Rate 78 Pulse Rate [ 83 Bilateral Throughout] Respiratory 16 Rate Respiratory 18 Rate [Bilateral Throughout] Blood Pressure 144/77 O2 Sat by Pulse 98 100 Oximetry 04/09/21 08:57 Temperature 97.7 F Pulse Rate 96 H Pulse Rate [ Bilateral Throughout] Respiratory 18 Rate Respiratory Rate [Bilateral Throughout] Blood Pressure 156/91 O2 Sat by Pulse 95 Oximetry - General Appearance General appearance: well-developed, well-nourished EENT: ATNC Respiratory: Present: Clear to Ascultation Cardiology: regular, S1S2 Gastrointestinal: normal, no tenderness, no distended Integumentary: warm and dry Neurologic: no focal deficit, alert and oriented x3 Musculoskeletal: other (no edema) Psychiatric: cooperative - Lab 04/04/21 05:00 04/09/21 08:30 Most recent lab results Calcium 9.1 mg/dL (8.4-10.2) 04/09/21 08:30 Phosphorus 4.50 mg/dL (2.5-4.5) 04/04/21 05:00 Magnesium 2.20 mg/dL (1.7-2.3) 04/04/21 05:00 Urine Creatinine 81.3 mg/dL (0.1-20.0) H 04/02/21 20:55 Medications & Allergies - Medications Allergies/Adverse Reactions: Allergies Penicillins Allergy (Verified 04/05/21 15:14) Anaphylaxis feels like body shuts down. Home Medications: Home Medications Medication Instructions Recorded Confirmed Last Taken Type Darunavir [Prezista] 800 mg PO QDAY tablet 04/09/21 Unknown Rx Dolutegravir [Tivicay] 50 mg PO DAILY tablet 04/09/21 Unknown Rx Epoetin Colby-Epbx 10,000 Unit 10,000 unit IV PRACHI PRN vial 04/09/21 Unknown Rx [Retacrit] Famotidine [Pepcid] 20 mg PO DAILY tablet 04/09/21 Unknown Rx Ritonavir 100 mg PO QDAY tab 04/09/21 Unknown Rx Active Medications: Generic Name Dose Route Start Last Admin Trade Name Freq PRN Reason Stop Dose Admin Acetaminophen 650 mg 04/02/21 01:14 Acetaminophen 325 Mg Tab PO Q4H PRN Pain MILD(1-3)/Fever >100.5/ZELAYA Albuterol 2.5 mg 04/04/21 12:00 Albuterol 2.5 Mg/3 Ml Nebu IH Q4HRT PRN Shortness Of Breath Albuterol/Ipratropium 1 ampul 04/04/21 20:00 04/09/21 07:41 Ipratropium/Albuterol Sulfate 3 Ml Ampul.Neb IH 1 ampul BIDRT MOODY Administration Darunavir 800 mg 04/02/21 16:00 04/09/21 10:24 Darunavir 800 Mg Tab PO 800 mg QDAY MOODY Administration Famotidine 20 mg 04/08/21 10:00 04/09/21 10:24 Famotidine 20 Mg Tab PO 20 mg DAILY MOODY Administration Heparin Sodium (Porcine) 5,000 unit 04/02/21 06:00 04/09/21 06:56 Heparin 5,000 Unit/1 Ml Vial SUB-Q Not Given Q8HR MOODY Hydralazine HCl 10 mg 04/04/21 01:32 04/04/21 01:52 Hydralazine 20 Mg/1 Ml Inj IV 10 mg Q6HR PRN Administration Hypertension Hydromorphone HCl 0.5 mg 04/02/21 01:14 Hydromorphone 1 Mg/1 Ml Inj IV Q3H PRN Pain , Severe (7-10) Sodium Chloride 100 mls @ 999 mls/hr 04/07/21 09:30 Nacl 0.9% IV PRACHI PRN Hypotension Ferric Sodium Gluconate 110 mls @ 100 mls/hr 04/07/21 10:00 04/08/21 19:07 Complex 125 mg/ Sodium IV 04/11/21 11:05 Not Given Chloride DAILY MOODY Morphine Sulfate 2 mg 04/02/21 01:14 Morphine 2 Mg/1 Ml Inj IV Q4H PRN Pain, Moderate (4-6) Ondansetron HCl 4 mg 04/02/21 01:14 Ondansetron 4 Mg/2 Ml Inj IV Q8H PRN Nausea And Vomiting Ritonavir 100 mg 04/02/21 16:00 04/09/21 10:24 Ritonavir 100 Mg Tab PO 100 mg QDAY MOODY Administration Sodium Chloride 10 ml 04/02/21 10:00 04/09/21 10:24 Sodium Chloride 0.9% 10 Ml Flush Syringe IV 10 ml BID MOODY Administration Sodium Chloride 10 ml 04/02/21 01:14 Sodium Chloride 0.9% 10 Ml Flush Syringe IV PRN PRN LINE FLUSH
== END 2021-04-09 16:40 | disposition home or self-care (01) | DRG 673 ==
LOC: ED 20:00 → IMCU 04-02 01:15 → 3A 04-02 12:56 → 4A 04-03 17:37 → 3A 04-03 19:25 → 4A 04-04 06:34
PROVIDERS: ADMIT Hospitalist; ATTEND Hospitalist
PROC: 0JH63XZ Insertion of Tunneled Vascular Access Device into Chest Subcutaneous Tissue and Fascia, Percutaneous Approach (ICD-10-PCS; principal; 2021-04-05)
PROC: 02H633Z Insertion of Infusion Device into Right Atrium, Percutaneous Approach (ICD-10-PCS; 2021-04-05)
PROC: B5181ZA Fluoroscopy of Superior Vena Cava using Low Osmolar Contrast, Guidance (ICD-10-PCS; 2021-04-05)
PROC: B548ZZA Ultrasonography of Superior Vena Cava, Guidance (ICD-10-PCS; 2021-04-05)
PROC: 5A1D70Z Performance of Urinary Filtration, Intermittent, Less than 6 Hours Per Day (ICD-10-PCS; 2021-04-05)
PROC: 5A1D70Z Performance of Urinary Filtration, Intermittent, Less than 6 Hours Per Day (ICD-10-PCS; 2021-04-06)
PROC: 5A1D70Z Performance of Urinary Filtration, Intermittent, Less than 6 Hours Per Day (ICD-10-PCS; 2021-04-07)
DX: N17.9 Acute kidney failure, unspecified (principal); B20 Human immunodeficiency virus [HIV] disease; K52.9 Noninfective gastroenteritis and colitis, unspecified; N18.6 End stage renal disease; E87.5 Hyperkalemia; E86.0 Dehydration; Z20.822 Contact with and (suspected) exposure to COVID-19; E87.2 Acidosis; Z88.0 Allergy status to penicillin
CPT/HCPCS: 36415; 36558; 71045; 74176; 77001; 80048; 80053; 80074; 81001; 82570; 82728; 82962; 83550; 83690; 83735; 83970; 84100; 85007; 85025; 87045; 87177; 93005; 94640; 94644; G0378; J3490; J7502; J7517; Q0162; Q9967; C1750; C1769; J0360; J0500; J0610; J0885; J1644; J1815; J1956; J2250; J2405; J3010; J7030; J7050; J7070; U0003

== ENCOUNTER 2021-08-16 11:49 | Emergency (ER) | payer MEDICARE ==
[2021-08-16] MEDS ORDERED: IPRATROPIUM 0.02% NEBU 2.5 ML IH ONE (11:54)
[2021-08-16] MEDS ORDERED: ALBUTEROL 2.5 MG/3 ML NEBU IH ONE (11:54)
[2021-08-16] MEDS ORDERED: methylPREDNISolone Sod Succinate 125 MG/2 ML INJ IV ONE (11:54)
[2021-08-16 12:49] LABS: Hematocrit 35.7 % (35.5-45.6); Hemoglobin 11.3 gm/dl (11.8-15.2); Mean Corpuscular HGB Conc 32 % (32-34); Mean Corpuscular Volume 96 fl (84-94); Platelet Count 515 K/mm3 (140-440); Red Blood Count 3.74 M/mm3 (3.65-5.03); Red Cell Distribution Width 19.5 % (13.2-15.2)
[2021-08-16 12:53] LABS: INR 1.01 (0.87-1.13)
[2021-08-16 13:08] LABS: Creatine Kinase MB 1.7 ng/mL (0.0-4.0)
[2021-08-16 13:10] LABS: Alanine Aminotransferase 10 units/L (7-56); Albumin 3.3 g/dL (3.9-5); Blood Urea Nitrogen 21 mg/dL (9-20); Calcium 8.8 mg/dL (8.4-10.2); Hemolysis Index 9
[2021-08-16 13:11] LABS: BUN/Creatinine Ratio 3
[2021-08-16 13:27] LABS: Total Cells Counted 100
[2021-08-16 13:30] LABS: Anisocytosis 1+; Hypochromasia Few; Large Platelets Rare; Platelet Estimate Consistent w Auto
--- NOTE | 2021-08-16 14:48 | XRay Report ---
CHEST 1 VIEW 08/16/2021 1:01 PM INDICATION / CLINICAL INFORMATION: Dyspnea. COMPARISON: 04/08/21. FINDINGS: SUPPORT DEVICES: The position of the right jugular CVL has not changed. HEART / MEDIASTINUM: Cardiomegaly with a left ventricular configuration is again noted. Aortic tortuo sity and ectasia are stable. LUNGS / PLEURA: There is moderate patchy parenchymal disease throughout both mid to lower lung zones, predominantly groundglass in appearance. No significant pleural effusion. No pneumothorax. ADDITIONAL FINDINGS: No significant additional findings. IMPRESSION: Moderate patchy parenchymal disease throughout both lungs, predominantly in the mid to lo wer lung zones, is nonspecific. Differential diagnosis includes pulmonary edema, atypical causes of p neumonia and diffuse alveolar damage. Signer Name: Eulogio Ballard MD Signed: 08/16/2021 2:43 PM Workstation Name: [id number]
--- NOTE | 2021-08-16 16:20 | Event Note ---
Date: 08/16/21 Notified by Rafy Troncoso NP of patient's presentation to [facility] ED. Patient was sent to the ED from outpatient dialysis clinic. Contacted Geovany Magallon. Per hot metal charger, patient presented to dialysis today appearing ill. Patient was noted to be SOB. O2 sat was obtained and patient was hypoxic on room air - 85% w/ HR 113. Patient placed on 6L NC oxygen and O2 sat improved to 94%. Patient remained tachy with HR 129. Per RN, patient also had a syncopal event. EMS was called and patient was transported to the ED. CXR notable for bilateral patchy airspace disease. Troponin unremarkble. Impression: * End stage renal disease * Acute hypoxic respiratory failure * Hypertension Plan: * Hemodialysis ordered * UF as tolerated * COVID 19 PCR ordered - will need prior to returning to outpatient HD clinic Full consult to follow
[2021-08-16] MEDS ORDERED: SODIUM CHLORIDE 0.9% 100 ML IV PRN (16:30)
[2021-08-16 17:39] LABS: Hepatitis B Surface Antigen Non-Reactive (Negative); Hepatitis C Virus Antibody Non-Reactive (NonReactive)
--- NOTE | 2021-08-16 18:32 | Emergency Department Report ---
ED Shortness of Breath HPI - General Chief Complaint: Dyspnea/Respdistress Stated Complaint: GERONIMO Time Seen by Provider: 08/16/21 11:54 Source: EMS Mode of arrival: Stretcher Limitations: No Limitations - History of Present Illness Initial Comments: SOB x 2 weeks , pt was sent here from dialysis as he was SOB , no fever no chest pain MD Complaint: shortness of breath -: week(s) Improves With: oxygen Worsens With: exertion Known History Of: HIV, other (ESRD) - Related Data Previous Rx's Medication Instructions Recorded Last Taken Type Darunavir [Prezista] 800 mg PO QDAY tablet 04/09/21 Unknown Rx Dolutegravir [Tivicay] 50 mg PO DAILY tablet 04/09/21 Unknown Rx Epoetin Colby-Epbx 10,000 Unit 10,000 unit IV PRACHI PRN vial 04/09/21 Unknown Rx [Retacrit] Famotidine [Pepcid] 20 mg PO DAILY tablet 04/09/21 Unknown Rx Ritonavir 100 mg PO QDAY tab 04/09/21 Unknown Rx Allergies Allergy/AdvReac Type Severity Reaction Status Date / Time Penicillins Allergy Anaphylaxis Verified 04/05/21 15:14 ED Review of Systems ROS: Stated complaint: GERONIMO Other details as noted in HPI Constitutional: denies: chills, fever Eyes: denies: eye pain, eye discharge, vision change ENT: denies: ear pain, throat pain Respiratory: denies: cough, shortness of breath, wheezing Cardiovascular: denies: chest pain, palpitations Endocrine: no symptoms reported Gastrointestinal: denies: abdominal pain, nausea, diarrhea Genitourinary: denies: urgency, dysuria Musculoskeletal: denies: back pain, joint swelling, arthralgia Skin: denies: rash, lesions Neurological: denies: headache, weakness, paresthesias Psychiatric: denies: anxiety, depression Hematological/Lymphatic: denies: easy bleeding, easy bruising ED Past Medical Hx - Past Medical History Previous Medical History?: Yes Hx Renal Disease: Yes (Stage IV) Hx Asthma: Yes Hx HIV: Yes - Social History Smoking Status: Never Smoker Substance Use Type: None - Medications Home Medications: Home Medications Medication Instructions Recorded Confirmed Last Taken Type Darunavir [Prezista] 800 mg PO QDAY tablet 04/09/21 Unknown Rx Dolutegravir [Tivicay] 50 mg PO DAILY tablet 04/09/21 Unknown Rx Epoetin Colby-Epbx 10,000 Unit 10,000 unit IV PRACHI PRN vial 04/09/21 Unknown Rx [Retacrit] Famotidine [Pepcid] 20 mg PO DAILY tablet 04/09/21 Unknown Rx Ritonavir 100 mg PO QDAY tab 04/09/21 Unknown Rx ED Physical Exam - General Limitations: No Limitations General appearance: alert, in no apparent distress - Head Head exam: Present: atraumatic, normocephalic - Eye Eye exam: Present: normal appearance - ENT ENT exam: Present: mucous membranes moist - Neck Neck exam: Present: normal inspection - Respiratory Respiratory exam: Present: normal lung sounds bilaterally. Absent: respiratory distress - Cardiovascular Cardiovascular Exam: Present: regular rate, normal rhythm. Absent: systolic murmur, diastolic murmur, rubs, gallop - GI/Abdominal GI/Abdominal exam: Present: soft, normal bowel sounds - Rectal Rectal exam: Present: deferred - Extremities Exam Extremities exam: Present: normal inspection - Back Exam Back exam: Present: normal inspection - Neurological Exam Neurological exam: Present: alert, oriented X3 - Psychiatric Psychiatric exam: Present: normal affect, normal mood - Skin Skin exam: Present: warm, dry, intact, normal color. Absent: rash ED Course Vital Signs 08/16/21 08/16/21 08/16/21 12:05 12:06 12:09 Temperature 98.0 F Pulse Rate 124 H 117 H 118 H Pulse Rate [ Bilateral] Respiratory 19 16 17 Rate Respiratory Rate [Bilateral ] Blood Pressure 156/100 Blood Pressure 156/100 [Left] O2 Sat by Pulse 96 98 99 Oximetry 08/16/21 08/16/21 08/16/21 12:16 12:30 12:36 Temperature Pulse Rate 106 H 106 H Pulse Rate [ Bilateral] Respiratory 26 H 34 H Rate Respiratory Rate [Bilateral ] Blood Pressure 156/100 160/90 Blood Pressure [Left] O2 Sat by Pulse 98 97 97 Oximetry 08/16/21 08/16/21 08/16/21 12:46 13:00 13:16 Temperature Pulse Rate Pulse Rate [ Bilateral] Respiratory Rate Respiratory Rate [Bilateral ] Blood Pressure 164/100 151/98 168/99 Blood Pressure [Left] O2 Sat by Pulse 93 92 91 Oximetry 08/16/21 08/16/21 08/16/21 13:30 13:46 14:00 Temperature Pulse Rate Pulse Rate [ Bilateral] Respiratory Rate Respiratory Rate [Bilateral ] Blood Pressure 166/94 168/99 149/93 Blood Pressure [Left] O2 Sat by Pulse 97 96 94 Oximetry 08/16/21 08/16/21 08/16/21 14:16 14:30 14:46 Temperature Pulse Rate Pulse Rate [ Bilateral] Respiratory Rate Respiratory Rate [Bilateral ] Blood Pressure 138/84 149/87 156/82 Blood Pressure [Left] O2 Sat by Pulse 94 93 96 Oximetry 08/16/21 08/16/21 08/16/21 15:00 15:15 15:31 Temperature Pulse Rate 100 H 96 H Pulse Rate [ Bilateral] Respiratory 37 H 39 H Rate Respiratory Rate [Bilateral ] Blood Pressure 161/103 152/89 Blood Pressure [Left] O2 Sat by Pulse 95 92 92 Oximetry 08/16/21 08/16/21 08/16/21 15:45 15:52 16:01 Temperature Pulse Rate 96 H 105 H Pulse Rate [ 116 H Bilateral] Respiratory 37 H 19 Rate Respiratory 18 Rate [Bilateral ] Blood Pressure 159/88 151/87 Blood Pressure [Left] O2 Sat by Pulse 92 94 Oximetry 08/16/21 16:15 Temperature Pulse Rate 101 H Pulse Rate [ Bilateral] Respiratory Rate Respiratory Rate [Bilateral ] Blood Pressure 157/91 Blood Pressure [Left] O2 Sat by Pulse 94 Oximetry ED Medical Decision Making - Lab Data Result diagrams: 08/16/21 12:22 08/16/21 12:22 - EKG Data -: EKG Interpreted by Ga EKG shows normal: sinus rhythm Rate: tachycardia - Radiology Data Radiology results: report reviewed, image reviewed - Medical Decision Making spoke with cone marker will take her to [facility] and will be back in R for discharge Critical care attestation.: If time is entered above; I have spent that time in minutes in the direct care of this critically ill patient, excluding procedure time. ED Disposition Clinical Impression: SOB (shortness of breath), ESRD (end stage renal disease), Fluid overload Disposition: 30 STILL A PATIENT Condition: Stable Referrals: PETRA HUYNH MD [Primary Care Provider] - 3-5 Days
[2021-08-16 22:27] VITALS: BP 136/96
--- NOTE | 2021-08-17 10:41 | Electrocardiograph Report ---
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
== END 2021-08-16 22:11 | disposition still patient (30) ==
LOC: ED 11:49
DX: R06.02 Shortness of breath (principal); E11.22 Type 2 diabetes mellitus with diabetic chronic kidney disease; N18.6 End stage renal disease; J45.909 Unspecified asthma, uncomplicated; E87.70 Fluid overload, unspecified; Z21 Asymptomatic human immunodeficiency virus [HIV] infection status
CPT/HCPCS: 36415; 71045; 80053; 80074; 82550; 82553; 83690; 84484; 85007; 85025; 85610; 93005; 94640; 96374; 99284; J2930; 94644

== ENCOUNTER 2021-09-07 21:38 | Observation (INO) | payer MEDICARE ==
[2021-09-08 01:40] LABS: Hemoglobin 12.2 gm/dl (11.8-15.2); Mean Corpuscular HGB Conc 32 % (32-34); Mean Corpuscular Volume 97 fl (84-94); Platelet Count 395 K/mm3 (140-440)
[2021-09-08 01:57] LABS: Albumin 3.6 g/dL (3.9-5); Calcium 9.1 mg/dL (8.4-10.2)
[2021-09-08 02:15] LABS: Red Cell Distribution Width 20.6 % (13.2-15.2)
[2021-09-08 04:22] LABS: Anisocytosis 1+; Basophils % (Manual) 0 % (0.0-1.8); Total Cells Counted 100
[2021-09-08 04:23] LABS: Hypochromasia Few; Large Platelets Rare; Platelet Estimate Consistent w Auto
--- NOTE | 2021-09-08 08:22 | Emergency Department Report ---
HPI - General Chief Complaint: Recheck/Abnormal Lab/Rx Time Seen by Provider: 09/08/21 08:12 - HPI HPI: This is a 40-year-old -Nigerien male presents to the emergency department with a complaint of having an elevated potassium level. He says that it was checked at [facility] yesterday afternoon and it electrically came back at a level of 7. He says that his Lasix was increased from 40 mg to 120 mg. The patient has a history of HIV and end-stage renal disease on hemodialysis on Monday/Monday/Monday and has not missed any dialysis sessions. He says that he gets dialysis nearby at [facility]. When asked who his transportation technician is, he shows me a card showing a Dr. Velasquez at [facility] nephrology in [place]. However it also appears that he is followed by a transportation technician through [facility]. ED Past Medical Hx - Past Medical History Hx Renal Disease: Yes (Stage IV) Hx Asthma: Yes Hx HIV: Yes - Social History Smoking Status: Never Smoker Substance Use Type: None - Medications Home Medications: Home Medications Medication Instructions Recorded Confirmed Last Taken Type Darunavir [Prezista] 800 mg PO QDAY tablet 04/09/21 Unknown Rx Dolutegravir [Tivicay] 50 mg PO DAILY tablet 04/09/21 Unknown Rx Epoetin Colby-Epbx 10,000 Unit 10,000 unit IV PRACHI PRN vial 04/09/21 Unknown Rx [Retacrit] Famotidine [Pepcid] 20 mg PO DAILY tablet 04/09/21 Unknown Rx Ritonavir 100 mg PO QDAY tab 04/09/21 Unknown Rx ED Review of Systems ROS: Stated complaint: ELEVATED K Other details as noted in HPI Comment: All other systems reviewed and negative Constitutional: denies: fever Eyes: denies: eye pain, vision change ENT: denies: ear pain, throat pain Respiratory: shortness of breath. denies: cough Cardiovascular: denies: chest pain, palpitations Gastrointestinal: denies: abdominal pain, vomiting Genitourinary: denies: dysuria, discharge Musculoskeletal: denies: back pain, arthralgia Skin: denies: rash, lesions Neurological: denies: headache, weakness Physical Exam - Physical Exam Vital Signs: Vital Signs 09/07/21 21:59 Temperature 98.4 F Pulse Rate 89 Respiratory 18 Rate Blood Pressure 128/84 O2 Sat by Pulse 98 Oximetry Physical Exam: GENERAL: The patient is well-developed well-nourished. HENT: Normocephalic. Atraumatic. Patient has moist mucous membranes. EYES: Extraocular motions are intact. NECK: Supple. Trachea is midline. CHEST/LUNGS: Clear to auscultation. There is no respiratory distress noted. HEART/CARDIOVASCULAR: Regular. There is no tachycardia. There is no murmur. ABDOMEN: Abdomen is soft, nontender. Patient has normal bowel sounds. There is no abdominal distention. SKIN: Skin is warm and dry. NEURO: The patient is awake, alert, and oriented. The patient is cooperative. Normal speech. MUSCULOSKELETAL: There is no tenderness or deformity. There is no limitation range of motion. ED Course Vital Signs 09/07/21 21:59 Temperature 98.4 F Pulse Rate 89 Respiratory 18 Rate Blood Pressure 128/84 O2 Sat by Pulse 98 Oximetry - Consultations Consultation #1: 09/08/21 08:[address] Jamil, transportation technician on for [facility] nephrology. The patient will receive dialysis today. Dr. Jamil will come in to facilitate dialysis and the patient will be admitted to the hospitalist service. ED Medical Decision Making - Lab Data Result diagrams: 09/07/21 23:05 09/07/21 23:05 Lab Results 09/07/21 09/07/21 Range/Units 23:05 23:05 WBC 7.1 (4.5-11.0) K/mm3 RBC 3.90 (3.65-5.03) M/mm3 Hgb 12.2 (11.8-15.2) gm/dl Hct 38.0 (35.5-45.6) % MCV 97 H (84-94) fl MCH 31 (28-32) pg MCHC 32 (32-34) % RDW 20.6 H (13.2-15.2) % Plt Count 395 (140-440) K/mm3 Leslie % (Auto) Sales Activity Manager Add Manual Diff Complete Total Counted 100 Seg Neutrophils % Sales Activity Manager Seg Neuts % (Manual) 21.0 L (40.0-70.0) % Band Neutrophils % 0 % Lymphocytes % (Manual) 64.0 H (13.4-35.0) % Reactive Lymphs % (Man) 0 % Monocytes % (Manual) 9.0 H (0.0-7.3) % Eosinophils % (Manual) 6.0 H (0.0-4.3) % Basophils % (Manual) 0 (0.0-1.8) % Metamyelocytes % 0 % Myelocytes % 0 % Promyelocytes % 0 % Blast Cells % 0 % Nucleated RBC % Not Reportable Seg Neutrophils # Man 1.5 L (1.8-7.7) K/mm3 Band Neutrophils # 0.0 K/mm3 Lymphocytes # (Manual) 4.5 (1.2-5.4) K/mm3 Abs React Lymphs (Man) 0.0 K/mm3 Monocytes # (Manual) 0.6 (0.0-0.8) K/mm3 Eosinophils # (Manual) 0.4 (0.0-0.4) K/mm3 Basophils # (Manual) 0.0 (0.0-0.1) K/mm3 Metamyelocytes # 0.0 K/mm3 Myelocytes # 0.0 K/mm3 Promyelocytes # 0.0 K/mm3 Blast Cells # 0.0 K/mm3 WBC Morphology Not Reportable Hypersegmented Neuts Not Reportable Hyposegmented Neuts Not Reportable Hypogranular Neuts Not Reportable Smudge Cells Not Reportable Toxic Granulation Not Reportable Toxic Vacuolation Not Reportable Dohle Bodies Not Reportable Pelger-Huet Anomaly Not Reportable Davion Rods Not Reportable Platelet Estimate Consistent w auto Clumped Platelets Not Reportable Plt Clumps, EDTA Not Reportable Large Platelets Rare Giant Platelets Not Reportable Platelet Satelliting Not Reportable Plt Morphology Comment Not Reportable RBC Morphology Not Reportable Dimorphic RBCs Not Reportable Polychromasia Not Reportable Hypochromasia Few Poikilocytosis Not Reportable Anisocytosis 1+ Microcytosis Not Reportable Macrocytosis Not Reportable Spherocytes Not Reportable Pappenheimer Bodies Not Reportable Sickle Cells Not Reportable Target Cells Not Reportable Tear Drop Cells Not Reportable Ovalocytes Not Reportable Helmet Cells Not Reportable Santos-Gaffney Bodies Not Reportable [place] Rings Not Reportable [place] Cells Not Reportable Bite Cells Not Reportable Crenated Cell Not Reportable Elliptocytes Few Acanthocytes (Spur) Not Reportable Rouleaux Not Reportable Hemoglobin C Crystals Not Reportable Schistocytes Not Reportable Malaria parasites Not Reportable Enrique Bodies Not Reportable Hem Pathologist Commnt No Sodium 137 (137-145) mmol/L Potassium 6.0 H (3.6-5.0) mmol/L Chloride 102.8 (98-107) mmol/L Carbon Dioxide 20 L (22-30) mmol/L Anion Gap 20 mmol/L BUN 34 H (9-20) mg/dL Creatinine 5.4 H (0.8-1.3) mg/dL Estimated GFR 14 ml/min BUN/Creatinine Ratio 6 % Glucose 92 (75-100) mg/dL Calcium 9.1 (8.4-10.2) mg/dL Total Bilirubin 0.20 (0.1-1.2) mg/dL AST 18 (5-40) units/L ALT 7 (7-56) units/L Alkaline Phosphatase 80 (35-129) units/L Total Protein 7.6 (6.3-8.2) g/dL Albumin 3.6 L (3.9-5) g/dL Albumin/Globulin Ratio 0.9 % - Medical Decision Making This patient says that he was sent in after he was told he had a potassium level of 7. He also tells me that he has been compliant with his dialysis sessions and he is due again today this morning at around 10:45 AM. The patient had labs drawn last night around 11 PM that shows a potassium level of 6. The rest of the labs are unremarkable except for the renal insufficiency/failure consistent with his end-stage renal disease on hemodialysis. I spoke to Dr. Jamil, transportation technician for [facility] nephrology, who says that the patient will get dialysis and then can be discharged home. The patient was accepted for admission by the hospitalist, Dr. Elkins. Critical Care Time: No Critical care attestation.: If time is entered above; I have spent that time in minutes in the direct care of this critically ill patient, excluding procedure time. ED Disposition Clinical Impression: ESRD needing dialysis, Hyperkalemia Disposition: 02 SHORT [facility] Is pt being admited?: Yes Condition: Stable Time of Disposition: 08:32
--- NOTE | 2021-09-08 08:53 | Consultation ---
History of Present Illness - Reason for Consult Consult date: 09/08/21 end stage renal disease - History of Present Illness This is a 40 year-old man with ESRD who presents for hyperkalemia Patient usually dialyzes MWF at [facility]. Last HD 09/06. Denies any recent issues with HD, including dizziness, lightheadedness, cramping, chest pain on HD. Notes went to PCP yesterday, told to go to ED for hyperkalemia, reportedly K of 7, unclear what date. Currently, patient denies any issues including dyspnea, edema, access issues, nausea, vomiting, headaches. Only "here because that is what they told me" Past History Past Medical History: dialysis, ESRD, HIV/AIDS, hypertension Past Surgical History: No surgical history Social history: no significant social history Family history: no significant family history Medications and Allergies Allergies Allergy/AdvReac Type Severity Reaction Status Date / Time Penicillins Allergy Anaphylaxis Verified 04/05/21 15:14 Home Medications Medication Instructions Recorded Confirmed Last Taken Type Darunavir [Prezista] 800 mg PO QDAY tablet 04/09/21 Unknown Rx Dolutegravir [Tivicay] 50 mg PO DAILY tablet 04/09/21 Unknown Rx Epoetin Colby-Epbx 10,000 Unit 10,000 unit IV PRACHI PRN vial 04/09/21 Unknown Rx [Retacrit] Famotidine [Pepcid] 20 mg PO DAILY tablet 04/09/21 Unknown Rx Ritonavir 100 mg PO QDAY tab 04/09/21 Unknown Rx Active Meds: Active Medications Sodium Chloride (Nacl 0.9%) 100 mls @ 999 mls/hr IV PRACHI PRN PRN Reason: Hypotension Review of Systems All systems: negative (as per HPI) Exam - Vital Signs Vital signs: Vital Signs Temp Pulse Resp BP Pulse Ox 98.4 F 89 18 128/84 98 09/07/21 21:59 09/07/21 21:59 09/07/21 21:59 09/07/21 21:59 09/07/21 21:59 - Physical Exam Narrative exam: Constitutional: no acute distress, withdrawn affect Head: NC/AT Neck: supple Lungs: clear to auscultation CV: RRR, no M/R/G Abdomen: soft, non-tender, bowel sounds present Back: nontender Extremities: no edema, pulses WNL Skin: intact Neuro: no focal deficits, alert and oriented x4 Results - Lab Results 09/07/21 23:05 09/07/21 23:05 Most recent lab results Calcium 9.1 mg/dL (8.4-10.2) 09/07/21 23:05 Assessment and Plan This is a 40 year old who presents with hyperkalemia # ESRD: HD today for hyperkalemia, toxin/volume control - daily labs - renally dose meds - avoid nephrotoxins - renal diet - verbal consent obtained for HD - likely safe for discharge after HD today, resume outpatient HD MWF # Anemia: last hemoglobin at goal, no need for ESAs # HTN: UF as tolerated. BP stable # Secondary Hyperparathyroidism: continue home binders as needed, vitamin D analogs prn
[2021-09-08] MEDS ORDERED: SODIUM CHLORIDE 0.9% 100 ML IV PRN (09:00)
[2021-09-08] MEDS ORDERED: HYDROcodone/ACETAMINOPHEN 5-325 MG TAB PO PRN (10:31)
--- NOTE | 2021-09-08 10:34 | History and Physical Report ---
History of Present Illness Date of examination: 09/08/21 Date of admission: 09/08/21 Chief complaint: My potassium was high History of present illness: This is a 40 year-old man with ESRD and history of HIV usually dialyzes MWF at [facility], and Last HD 09/06 who presents to ER for hyperkalemia. Patient states that he went to PCP office yesterday and told to come to ER as his potassium level was high. Patient Denies any recent issues with HD, including dizziness, lightheadedness, cramping, chest pain on HD. Notes yesterday he was told reportedly K of 7, unclear what date. Currently, patient denies any issues including dyspnea, edema, access issues, nausea, vomiting, headaches. He was sent to ER for hyperkalemia. Nephrology was consulted for emergent hemodialysis. His potassium was 6.0 on admission. Review of System: Constitutional: no fever, no chills, no weight loss Ears, eyes, nose, mouth and throat: no nasal congestion, no nasal discharge, no sinus pressure, no vision change, no red eye. Neck: No neck pain or rigidity. Cardiovascular: No chest pain, no orthopnea, no palpitations, no leg swelling Respiratory: No shortness of breath, no cough, no congestion, no wheezing Gastrointestinal: no abdominal pain, no nausea, no vomiting Genitourinary : no dysuria, no hematuria Musculoskeletal: no joint swelling or muscle ache Integumentary: no rash, no pruritis Neurological: no parathesias, no numbness, no tingling Endocrine: no cold or heat intolerance, no polyuria or polydipsia Hematologic/Lymphatic: no easy bruising, no easy bleeding, no gland swelling Allergic/Immunologic: no urticaria, no angioedema. Past History Past Medical History: dialysis, ESRD, HIV/AIDS, hypertension Past Surgical History: No surgical history Social history: no significant social history Family history: no significant family history Medications and Allergies Allergies Allergy/AdvReac Type Severity Reaction Status Date / Time Penicillins Allergy Anaphylaxis Verified 04/05/21 15:14 Home Medications Medication Instructions Recorded Confirmed Last Taken Type Darunavir [Prezista] 800 mg PO QDAY tablet 04/09/21 Unknown Rx Dolutegravir [Tivicay] 50 mg PO DAILY tablet 04/09/21 Unknown Rx Epoetin Colby-Epbx 10,000 Unit 10,000 unit IV PRACHI PRN vial 04/09/21 Unknown Rx [Retacrit] Famotidine [Pepcid] 20 mg PO DAILY tablet 04/09/21 Unknown Rx Ritonavir 100 mg PO QDAY tab 04/09/21 Unknown Rx Active Meds: Active Medications Acetaminophen (Acetaminophen 325 Mg Tab) 650 mg PO Q4H PRN PRN Reason: Pain MILD(1-3)/Fever >100.5/ZELAYA Hydrocodone Bitart/Acetaminophen (Hydrocodone/Acetaminophen 5-325 Mg Tab) 2 each PO Q6H PRN PRN Reason: Pain, Moderate (4-6) Docusate Sodium (Docusate Sodium 100 Mg Cap) 100 mg PO BID MOODY Heparin Sodium (Porcine) (Heparin 5,000 Unit/1 Ml Vial) 5,000 unit SUB-Q Q12HR MOODY Sodium Chloride (Nacl 0.9%) 100 mls @ 999 mls/hr IV PRACHI PRN PRN Reason: Hypotension Morphine Sulfate (Morphine 4 Mg/1 Ml Inj) 4 mg IV Q4H PRN PRN Reason: Pain , Severe (7-10) Ondansetron HCl (Ondansetron 4 Mg/2 Ml Inj) 4 mg IV Q8H PRN PRN Reason: Nausea And Vomiting Sodium Chloride (Sodium Chloride 0.9% 10 Ml Flush Syringe) 10 ml IV BID MOODY Sodium Chloride (Sodium Chloride 0.9% 10 Ml Flush Syringe) 10 ml IV PRN PRN PRN Reason: LINE FLUSH Exam - Physical Exam Narrative exam: GENERAL: well-developed young male lying on bed appeared to be in no discomfort. HEENT: Normocephalic. Atraumatic. No conjunctival congestion or icterus. Patient has moist mucous membranes. NECK: Supple. Trachea midline. CHEST/LUNGS: Clear to auscultated bilaterally, breathing nonlabored. No wheezes crackles or rhonchi. HEART/CARDIOVASCULAR: Regular in rate and rhythm. S1 and S2 positive. ABDOMEN: Abdomen is soft, nontender. Patient has normal bowel sounds. SKIN: There is no rash. Warm and dry. NEURO: No focal motor deficit. Follows command. MUSCULOSKELETAL: No joint effusion or tenderness. EXTRIMITY: No edema, no cyanosis or clubbing. PSYCH: Cooperative. - Constitutional Vitals: Temp Pulse Resp BP Pulse Ox 98.1 F 85 15 128/84 99 09/08/21 09:16 09/08/21 09:16 09/08/21 09:16 09/07/21 21:59 09/08/21 09:16 Results - Labs CBC & Chem 7: 09/07/21 23:05 09/09/21 05:08 Labs: Abnormal lab results 09/07/21 09/07/21 Range/Units 23:05 23:05 MCV 97 H (84-94) fl RDW 20.6 H (13.2-15.2) % Seg Neuts % (Manual) 21.0 L (40.0-70.0) % Lymphocytes % (Manual) 64.0 H (13.4-35.0) % Monocytes % (Manual) 9.0 H (0.0-7.3) % Eosinophils % (Manual) 6.0 H (0.0-4.3) % Seg Neutrophils # Man 1.5 L (1.8-7.7) K/mm3 Potassium 6.0 H (3.6-5.0) mmol/L Carbon Dioxide 20 L (22-30) mmol/L BUN 34 H (9-20) mg/dL Creatinine 5.4 H (0.8-1.3) mg/dL Albumin 3.6 L (3.9-5) g/dL Assessment and Plan # ESRD: Consulted renal, HD today for hyperkalemia, avoid nephrotoxins #Hyperkalemia, due to end-stage renal disease, repeat potassium level after hemodialysis # Anemia: last hemoglobin at goal, no need for ESAs for renal # HTN: BP stable, resume home meds # Secondary Hyperparathyroidism: continue home binders as needed, vitamin D analogs prn #HIV, continue home meds #DVT prophylaxis, heparin --Plan for emergent hemodialysis today, if potassium level improves following dialysis patient will be discharged home.
[2021-09-08] MEDS ORDERED: ONDANSETRON 4 MG/2 ML INJ IV PRN (11:00)
[2021-09-08] MEDS ORDERED: ACETAMINOPHEN 325 MG TAB PO PRN (11:00)
[2021-09-08] MEDS ORDERED: MORPHINE 4 MG/1 ML INJ IV PRN (11:00)
[2021-09-08] MEDS ORDERED: DARUNAVIR 800 MG TAB PO SCH (12:00)
[2021-09-08] MEDS ORDERED: RITONAVIR 100 MG TAB PO SCH (12:00)
[2021-09-08] MEDS ORDERED: DOLUTEGRAVIR 50 MG TAB PO SCH (12:00)
--- NOTE | 2021-09-08 13:31 | Discharge Summary ---
Providers - Providers Date of Admission: 09/08/21 10:31 Date of discharge: 09/08/21 Attending physician: SIMEON RICHARDSON 09/08/21 08:30 Consult to Physician [CONS] Routine Comment: Consulting Provider: MICKY FLORES Physician Instructions: Reason For Exam: ESRD needing dialysis Primary care physician: [employer]MENT [employer]ER Hospitalization Condition: Stable Hospital course: This is a 40 year-old man with ESRD and history of HIV usually dialyzes MWF at [facility], and Last HD 09/06 who presents to ER for hyperkalemia. Notes yesterday he was told from PCP office that reportedly his K is 7. Currently, patient denies any issues including dyspnea, edema, access issues, nausea, vomiting, headaches. He was sent to ER for hyperkalemia. Nephrology was consulted for emergent hemodialysis. His potassium was 6.0 on admission. Patient was emergently dialyzed and his potassium dropped to 5.1 today. Patient will be discharged home in stable condition and recommended to continue outpatient dialysis as scheduled. He was also recommended low potassium renal diet. Disposition: 01 HOME / SELF CARE / HOMELESS Final Discharge Diagnosis (Prints w/discharge instructions): # ESRD: # Hyperkalemia,. # Anemia of CD. # HTN: # Secondary Hyperparathyroidism: # HIV Time spent for discharge: 34 minutes Core Measure Documentation - Palliative Care Palliative Care/ Comfort Measures: Not Applicable - Core Measures Any of the following diagnoses?: none Exam - Physical Exam Narrative exam: GENERAL: well-developed young male lying on bed appeared to be in no discomfort. HEENT: Normocephalic. Atraumatic. No conjunctival congestion or icterus. Patient has moist mucous membranes. NECK: Supple. Trachea midline. CHEST/LUNGS: Clear to auscultated bilaterally, breathing nonlabored. No wheezes crackles or rhonchi. HEART/CARDIOVASCULAR: Regular in rate and rhythm. S1 and S2 positive. ABDOMEN: Abdomen is soft, nontender. Patient has normal bowel sounds. SKIN: There is no rash. Warm and dry. NEURO: No focal motor deficit. Follows command. MUSCULOSKELETAL: No joint effusion or tenderness. EXTRIMITY: No edema, no cyanosis or clubbing. PSYCH: Cooperative. - Constitutional Vitals: Temp Pulse Resp BP Pulse Ox 96.8 F L 80 18 121/71 99 09/08/21 09:55 09/08/21 11:45 09/08/21 09:55 09/08/21 11:45 09/08/21 09:55 Plan Activity: advance as tolerated Weight Bearing Status: Weight Bear as Tolerated Diet: renal Special Instructions: restrict fluid intake to (1.2L daily ) Follow up with: PRIMARY CARE, [Primary Care Provider] - 3-5 Days
[2021-09-08] MEDS ORDERED: HEPARIN 5,000 UNIT/1 ML VIAL SUB-Q SCH (22:00)
[2021-09-08] MEDS ORDERED: DOCUSATE SODIUM 100 MG CAP PO SCH (22:00)
[2021-09-09 04:02] VITALS: BP 103/55
[2021-09-09 06:14] LABS: Calcium 9.3 mg/dL (8.4-10.2)
[2021-09-09] MEDS ORDERED: FAMOTIDINE 20 MG TAB PO SCH (10:00)
--- NOTE | 2021-09-09 19:00 | Electrocardiograph Report ---
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
== END 2021-09-09 07:47 | disposition home or self-care (01) ==
LOC: ED 21:38 → INTOOBSV 09-08 10:31 → 4A 09-08 10:31
PROVIDERS: ADMIT Internal Medicine; ATTEND Internal Medicine
DX: E87.5 Hyperkalemia (principal); I12.0 Hypertensive chronic kidney disease with stage 5 chronic kidney disease or end stage renal disease; N18.6 End stage renal disease; D63.1 Anemia in chronic kidney disease; E21.3 Hyperparathyroidism, unspecified; J45.909 Unspecified asthma, uncomplicated; Z99.2 Dependence on renal dialysis; Z21 Asymptomatic human immunodeficiency virus [HIV] infection status; Z79.899 Other long term (current) drug therapy
CPT/HCPCS: 36415; 80048; 80053; 84132; 85007; 85025; 93005; 96372; 99284; G0378; J1644

== ENCOUNTER 2021-11-26 15:02 | Emergency (ER) | payer MEDICARE ==
--- NOTE | 2021-11-26 16:41 | Emergency Department Report ---
HPI - General Chief Complaint: Recheck/Abnormal Lab/Rx Time Seen by Provider: 11/26/21 16:20 - HPI HPI: Room 4 The patient is a 40-year-old male present with a chief complaint of hyperkalemia. Patient has history end-stage renal disease and usually receives dialysis every Monday. Patient states he has been compliant with his dialysis. Today the patient had bloods drawn just prior to hemodialysis he was found to be hyperkalemic at 7.8. Patient states he received his normal 3.5 hours of hemodialysis who was sent here for reevaluation. Patient denies complaints except feeling hungry ED Past Medical Hx - Past Medical History Hx Renal Disease: Yes (Stage IV) Hx Seizures: Yes Hx Psychiatric Treatment: Yes (Depression) Hx Asthma: Yes Hx HIV: Yes (Last CD4 1347 (summer 2021)) - Surgical History Past Surgical History?: No Additional Surgical History: Right chest Vas-Cath, left upper extremity fistula (nonfunctional) - Family History Family history: no significant - Social History Smoking Status: Never Smoker Substance Use Type: None (Denies illicit drug use) - Medications Home Medications: Home Medications Medication Instructions Recorded Confirmed Last Taken Type Darunavir [Prezista] 800 mg PO QDAY tablet 04/09/21 Unknown Rx Dolutegravir [Tivicay] 50 mg PO DAILY tablet 04/09/21 Unknown Rx Epoetin Colby-Epbx 10,000 Unit 10,000 unit IV PRACHI PRN vial 04/09/21 Unknown Rx [Retacrit] Famotidine [Pepcid] 20 mg PO DAILY tablet 04/09/21 Unknown Rx Ritonavir 100 mg PO QDAY tab 04/09/21 Unknown Rx ED Review of Systems ROS: Stated complaint: HIGH POTASSIUM Other details as noted in HPI Constitutional: no symptoms reported Eyes: denies: eye pain ENT: denies: throat pain Respiratory: no symptoms reported Cardiovascular: denies: chest pain Endocrine: no symptoms reported Gastrointestinal: denies: abdominal pain Genitourinary: denies: dysuria Musculoskeletal: denies: back pain Neurological: denies: headache Physical Exam - Physical Exam Vital Signs: Vital Signs 11/26/21 15:02 Temperature 98.7 F Pulse Rate 72 Respiratory 16 Rate Blood Pressure 170/90 [Left] O2 Sat by Pulse 99 Oximetry Physical Exam: GENERAL: The patient is well-developed well-nourished male lying on stretcher not appearing to be in acute distress. [] HEENT: Normocephalic. Atraumatic. Extraocular motions are intact. Patient has moist mucous membranes. NECK: Supple. Trachea midline CHEST/LUNGS: Clear to auscultation. There is no respiratory distress noted. HEART/CARDIOVASCULAR: Regular. There is no tachycardia. There is no gallop rub or murmur. ABDOMEN: Abdomen is soft, nontender. Patient has normal bowel sounds. There is no abdominal distention. SKIN: There is no rash. There is no edema. There is no diaphoresis. NEURO: The patient is awake, alert, and oriented. The patient is cooperative. The patient has no focal neurologic deficits. The patient has normal speech. GCS 15 MUSCULOSKELETAL:There is no evidence of acute injury. ED Course Vital Signs 11/26/21 15:02 Temperature 98.7 F Pulse Rate 72 Respiratory 16 Rate Blood Pressure 170/90 [Left] O2 Sat by Pulse 99 Oximetry ED Medical Decision Making - Lab Data Result diagrams: 11/26/21 16:45 11/26/21 16:36 Laboratory Tests 11/26/21 11/26/21 16:36 16:45 WBC 8.1 RBC 3.87 Hgb 12.5 Hct 37.3 MCV 96 H MCH 32 MCHC 34 RDW 16.0 H Plt Count 262 Lymph % (Auto) 46.5 H [place] % (Auto) 10.2 H Eos % (Auto) 3.7 Baso % (Auto) 0.5 Lymph # (Auto) 3.8 [place] # (Auto) 0.8 Eos # (Auto) 0.3 Baso # (Auto) 0.0 Seg Neutrophils % 39.1 L Seg Neutrophils # 3.2 Sodium 134 L Potassium 4.5 Chloride 98.0 Carbon Dioxide 28 Anion Gap 13 BUN 15 Creatinine 3.0 H Estimated GFR 28 BUN/Creatinine Ratio 5 Glucose 79 Calcium 9.1 - Differential Diagnosis eukalemia, hyperkalemia Critical care attestation.: If time is entered above; I have spent that time in minutes in the direct care of this critically ill patient, excluding procedure time. ED Disposition Clinical Impression: Serum potassium elevated, ESRD (end stage renal disease) Disposition: HOME / SELF CARE / HOMELESS Is pt being admited?: No Does the pt Need Aspirin: No Condition: Stable Additional Instructions: Return to the emergency department should you develop worsening symptoms, inability to tolerate food or liquids, high fever or any other concerns Referrals: PRIMARY CARE, [Referring] - 3-5 Days Time of Disposition: 18:01
[2021-11-26 17:25] LABS: Calcium 9.1 mg/dL (8.4-10.2)
[2021-11-26 17:56] LABS: Basophils % (Auto) 0.5 % (0.0-1.8); Eosinophils # (Auto) 0.3 K/mm3 (0.0-0.4); Eosinophils % (Auto) 3.7 % (0.0-4.3); Hematocrit 37.3 % (35.5-45.6); Hemoglobin 12.5 gm/dl (11.8-15.2); Lymphocytes # (Auto) 3.8 K/mm3 (1.2-5.4); Lymphocytes % (Auto) 46.5 % (13.4-35.0); Mean Corpuscular HGB Conc 34 % (32-34); Mean Corpuscular Volume 96 fl (84-94); Monocytes # (Auto) 0.8 K/mm3 (0.0-0.8); Monocytes % (Auto) 10.2 % (0.0-7.3); Platelet Count 262 K/mm3 (140-440); Red Blood Count 3.87 M/mm3 (3.65-5.03)
[2021-11-26 18:18] VITALS: BP 137/81
== END 2021-11-26 18:16 | disposition home or self-care (01) ==
LOC: ED 15:02
DX: E87.5 Hyperkalemia (principal); I12.0 Hypertensive chronic kidney disease with stage 5 chronic kidney disease or end stage renal disease; N18.6 End stage renal disease; R56.9 Unspecified convulsions; F32.A Depression, unspecified; J45.909 Unspecified asthma, uncomplicated; Z21 Asymptomatic human immunodeficiency virus [HIV] infection status
CPT/HCPCS: 36415; 80048; 85025; 99283